=== PATIENT | female | born 1965 | race Caucasian/White ===

== ENCOUNTER 2021-03-25 09:30 | Outpatient (AMB) | payer MEDICARE, SELFPAY ==
--- NOTE | 2021-05-01 13:58 | CWC.SOCIALAS ---
[facility] Social Work Assessment Intake Visit Date: 05/01/21 Conference Time: 09:30 Conference Visit Location: [facility] Office via Phone Call Visit Participants: Antonietta Moser, patient [address] Referral Source: Follow-Up Visit Repack Room Worker: Elana List Name, Facility and location of PCP: Dr. Sandoval Preliminary Information History provided by: Patient Diagnosis: Colon Cancer with Lung Mets Prognosis: Fair Goal of Care: Life Prolonging (Walk her dog at least 1x per day. ) Social Environment Employment status: Disabled Financial Status: Adequate (Meeting basic needs) Patient housing status: House Patient lives with: Alone Living situation comments: Patient reported her son was staying with her at this time as he is trying to fix his vehicle. Support system: Good ADL's Getting dressed: Yes Personal Hygiene: Yes Feeding: Yes Ambulate: Yes Continence management: Yes Prepare meals: Yes Transportation: Yes (Mindful of her abilities when driving. When driving, the day before she plans out time she will leave to ensure she feels well to drive. ) engineer process: Yes (Has to take it slow due to fatigue. She has a camp housekeeper who goes once a month along with a profiling machine setup operator. ) Manage medications: Yes Manage finances: Yes Ambulation ability: Ambulates independently (Patient reported she feels exhausted when she is awake. Discussed recommendations to manage fatigue: take breaks, prioritize, break task down, which she reported she does. ) Cognitive/Emotional Status Mental status: Alert and Oriented Judgement: Good Emotional status: Normal Coping status: Coping w/some difficulty Learning needs: Motivational Additional comments: Antonietta Moser is a 55-year-old female who presented to her PC follow-up via phone call. Patient was pleasant and cooperative. Patient was sitting outside during the call since her camp housekeeper was in the home at the time of the call. Mood and affect was within normal limits and thought process was congruent with thought content. Patient able to communicate effectively. No signs of delusion or hallucinations during the call. Patient declined SI/HI. Patient has depression. Patient reporting she feels she kobe. She reported her only issue is the fatigue. Patient was recommended counseling services, but she reported she is not ready yet. Patient is coping by focusing on the positive aspects of her life. She has a yoga book, which she was recommended to engage in reading since she reported she enjoys reading. Recommended engaging in practicing Imagery and discussed benefits. Patient reported Imagery was an exercise she learned with her hypnotherapist, which she would try to incorporate. Also recommended patient practicing Gratitude Exercises (1-3 good experiences) to help combat depression and educated on the benefits. Patient plans to begin going to her friends gathering next week where they play [employer]unco. Encouraged patient to continue engaging is social activities and utilizing coping skills. Advanced Care planning Advacned care plan discussed: No Social Service Decision Making Status: Makes Own Decisions (Patient has an ADVDIR and POLST and is scanned in the chart. Attempt Resuscitation, Full Treatment-Trial Period of Full Treatment (Patient does not want to remain on a vent or other life support measures w/o possibility of recovery, trial period of artificial nutrition. ) Primary Decision Maker: Autumn Wilson, daughter Anticipated needs Hand Shoes Sewer Patient Concerns: Adjustment to Illness (Recommended counseling services. Engagement in social activities and use of coping skills. ) Hand Shoes Sewer Discharge needs: No Further Intervention Additional Note Additional Visit Nurse notes: Patient had recent last that indicated possible issue with the thyroid which she reported would make sense to her symptoms present such as fatigue, depression, and hair loss. She will be seeing her PCP in March to discuss the lab values. Sleep: Sleeping well. She reported she has a prescription for Atarax her PCP gave her and that has helped her sleep better. Appetite: Good.
== END 2021-03-25 10:40 | disposition home or self-care (01) ==
LOC: HODCWC 10:46
PROVIDERS: PCP Radiology Therapeutic Radiology; Referring Provider Radiology Therapeutic Radiology; Visit Provider Radiology Therapeutic Radiology

== ENCOUNTER → 2024-01-05 | Outpatient (CLI) | payer MEDICARE, SELFPAY ==
[2024-01-05 16:35] LABS: Protein Total, Urine 16 mg/dL (1-14)
[2024-01-05 16:41] LABS: Protein Total, 24 hr Urine 320 mg/24hr (<149); Protein Total, Urine Volume 2000 mL/24hr (600-1800)
== END | disposition home or self-care (01) ==
LOC: SLDO 13:59
PROVIDERS: Referring Provider Internal Medicine Hematology & Oncology; Visit Provider Internal Medicine Hematology & Oncology
DX: C20 Malignant neoplasm of rectum (principal); C78.00 Secondary malignant neoplasm of unspecified lung
CPT/HCPCS: 84156

== ENCOUNTER 2024-01-07 13:30 | Outpatient (RCR) | payer MEDICARE, SELFPAY ==
[2024-01-06 16:28] LABS: Collection Type, Urine Voided; Squamous Epithelial Cell,Urine 0 /hpf (0-5)
[2024-01-06 16:30] LABS: Basophils % (Auto) 0 % (0-2.5); Eosinophils # (Auto) 0.2 Thou/mm3 (0.0-0.5); Eosinophils % (Auto) 2 % (0-10); Hematocrit 42.2 % (36.0-46.0); Hemoglobin 13.8 g/dL (12.0-16.0); Immature Granulocytes % (Auto) 0 % (0-0); Immature Granulocytes Auto 0.02 Thou/mm3 (0.00-0.00); Lymphocytes % (Auto) 14 % (10-50); Mean Corpuscular HGB Conc 32.7 g/dl (31.0-37.0); Mean Corpuscular Hemoglobin 32.1 pg (25.0-35.0); Mean Corpuscular Volume 98 fL (80-100); Monocytes # (Auto) 0.5 Thou/mm3 (0.0-0.8); Monocytes % (Auto) 6 % (0-12); Neutrophils # (Auto) 5.6 Thou/mm3 (1.8-7.7); Neutrophils % (Auto) 77 % (37-80); Nucleated Red Blood Cell % 0 /100 WBC (0); Platelet Count 259 Thou/mm3 (140-440); RDW Standard Deviation 54.4 fL (36.4-46.3); White Blood Count 7.3 Thou/mm3 (3.6-11.0)
[2024-01-06 16:32] LABS: Bilirubin,Urine Negative (Negative); Blood,Urine Negative (Negative); Clarity,Urine Clear (Clear/Hazy); Color,Urine Yellow (Lt Yel-Yel); Glucose, Urine Negative (Negative); Ketones,Urine Negative (Negative); Leukocyte Esterase,Urine Negative (Negative); Nitrite,Urine Negative (Negative); PH,Urine 6.5 (5.0-7.0); Protein,Urine 1+ (Neg - Trace); RBC,Urine 1 /hpf (0-3); Specific Gravity,Urine 1.016 (1.001-1.035); Urobilinogen,Urine Negative mg/dL (0.0-1.0); WBC,Urine 1 /hpf (0-5)
[2024-01-06 17:00] LABS: Alanine Aminotransferase 17 U/L (10-49); Albumin, Serum 4.8 gm/dL (3.4-4.8); Albumin/Globulin Ratio 2.1 (1.2-2.2); Alkaline Phosphatase 95 U/L (46-116); Anion Gap 9 (7-16); Aspartate Amino Transferase 28 U/L (0-34); BUN/Creatinine Ratio 14 Ratio (12-20); Bilirubin,Total 0.7 mg/dL (0.3-1.2); Blood Urea Nitrogen 14 mg/dL (9-23); Calcium 10.2 mg/dL (8.3-10.6); Calcium (Corrected) 10.2 mg/dL (8.5-10.1); Carbon Dioxide 26.1 mMol/L (20.0-31.0); Chloride 104 mMol/L (98-107); Globulin 2.3 gm/dL (2.3-3.5); Glucose 118 mg/dL (74-106); Osmolality,Calculated 279 (275-295); Potassium 4.1 mMol/L (3.4-5.1); Sodium 139 mMol/L (136-145); Total Protein 7.1 gm/dL (5.7-8.2); eGFR > 60 See Note
[2024-01-06 17:04] LABS: Carcinoembryonic Antigen 15.6 ng/mL (0.0-5.0)
== END 2024-01-23 23:59 | disposition home or self-care (01) ==
LOC: SCTC 13:30
PROVIDERS: Internal Medicine Hematology & Oncology; PCP Internal Medicine; Referring Provider Internal Medicine; Visit Provider Radiology Therapeutic Radiology
DX: Z51.11 Encounter for antineoplastic chemotherapy (principal); C20 Malignant neoplasm of rectum; C78.01 Secondary malignant neoplasm of right lung; C77.0 Secondary and unspecified malignant neoplasm of lymph nodes of head, face and neck
CPT/HCPCS: 36591; 80053; 81001; 82378; 85025; 96413; A4216; J1642; Q5107

== ENCOUNTER → 2024-01-25 | Outpatient (CLI) | payer MEDICARE, SELFPAY ==
[2024-01-25 11:06] LABS: Collection Type, Urine Clean Catch
[2024-01-25 11:27] LABS: Basophils % (Auto) 1 % (0-2.5); Eosinophils # (Auto) 0.1 Thou/mm3 (0.0-0.5); Eosinophils % (Auto) 2 % (0-10); Hematocrit 41.8 % (36.0-46.0); Hemoglobin 13.3 g/dL (12.0-16.0); Immature Granulocytes % (Auto) 0 % (0-0); Immature Granulocytes Auto 0.01 Thou/mm3 (0.00-0.00); Lymphocytes # (Auto) 0.9 Thou/mm3 (1.0-4.8); Lymphocytes % (Auto) 15 % (10-50); Mean Corpuscular HGB Conc 31.8 g/dl (31.0-37.0); Mean Corpuscular Hemoglobin 31.6 pg (25.0-35.0); Mean Corpuscular Volume 99 fL (80-100); Monocytes # (Auto) 0.4 Thou/mm3 (0.0-0.8); Monocytes % (Auto) 6 % (0-12); Neutrophils # (Auto) 4.5 Thou/mm3 (1.8-7.7); Neutrophils % (Auto) 76 % (37-80); Nucleated Red Blood Cell % 0 /100 WBC (0); Platelet Count 244 Thou/mm3 (140-440); RDW Standard Deviation 53.3 fL (36.4-46.3); Red Blood Count 4.21 Miln/mm3 (4.00-5.20); White Blood Count 5.9 Thou/mm3 (3.6-11.0)
[2024-01-25 11:36] LABS: Alanine Aminotransferase 15 U/L (10-49); Albumin, Serum 4.5 gm/dL (3.4-4.8); Alkaline Phosphatase 78 U/L (46-116); Anion Gap 9 (7-16); Aspartate Amino Transferase 27 U/L (0-34); BUN/Creatinine Ratio 13 Ratio (12-20); Bilirubin,Total 0.4 mg/dL (0.3-1.2); Blood Urea Nitrogen 13 mg/dL (9-23); Calcium 10.3 mg/dL (8.3-10.6); Calcium (Corrected) 10.3 mg/dL (8.5-10.1); Carbon Dioxide 26.2 mMol/L (20.0-31.0); Chloride 110 mMol/L (98-107); Globulin 2.3 gm/dL (2.3-3.5); Glucose 113 mg/dL (74-106); Osmolality,Calculated 289 (275-295); Potassium 3.8 mMol/L (3.4-5.1); Sodium 145 mMol/L (136-145); Total Protein 6.8 gm/dL (5.7-8.2); eGFR > 60 See Note
[2024-01-25 11:38] LABS: Bacteria,Urine Rare; Bilirubin,Urine Negative (Negative); Blood,Urine Negative (Negative); Clarity,Urine Clear (Clear/Hazy); Color,Urine Yellow (Lt Yel-Yel); Culture Indicated,Urine Not Indicated; Glucose, Urine Negative (Negative); Granular Casts,Urine < 1 /hpf (0-1); Hyaline Casts,Urine < 1 /hpf (0-1); Ketones,Urine Negative (Negative); Leukocyte Esterase,Urine Negative (Negative); Nitrite,Urine Negative (Negative); Protein,Urine 1+ (Neg - Trace); RBC,Urine 2 /hpf (0-3); Squamous Epithelial Cell,Urine < 1 /hpf (0-5); Urobilinogen,Urine Negative mg/dL (0.0-1.0); WBC,Urine 5 /hpf (0-5)
[2024-01-25 11:44] LABS: Carcinoembryonic Antigen 15.9 ng/mL (0.0-5.0)
[2024-01-25 12:27] LABS: Protein Total, Urine 55 mg/dL (1-14)
[2024-01-25 12:37] LABS: Protein Total, 24 hr Urine 495 mg/24hr (<149); Protein Total, Urine Volume 900 mL/24hr (600-1800)
== END | disposition home or self-care (01) ==
LOC: SCTO 10:30
PROVIDERS: PCP Internal Medicine; Referring Provider Internal Medicine Hematology & Oncology; Visit Provider Internal Medicine Hematology & Oncology
DX: C20 Malignant neoplasm of rectum (principal); C78.00 Secondary malignant neoplasm of unspecified lung
CPT/HCPCS: 36415; 80053; 81001; 82378; 84156; 85025

== ENCOUNTER 2024-02-18 09:41 | Outpatient (RCR) | payer MEDICARE, SELFPAY ==
--- NOTE | 2024-02-07 17:19 | CTCFLWUP_ITS ---
Patient: ANTONIETTA MONTENEGRO : 1965 Page 2 of 2 FOLLOW UP NOTE DATE OF SERVICE: 01/25/2024 NAME: ANTONIETTA MONTENEGRO ACCOUNT: [id number] : 1965 AGE: 58 REASON FOR VISIT: Follow-up on colon cancer INTERVAL HISTORY: Patient is complaining of pain over her shoulder and neck She had a pain medication. Is not well-controlled. 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 K-laurence mutation not de tected. No loss of expression of MMR proteins. She was treated with neoadjuvant chemoradiation at [facility]. Following the surgery she was found to have T2N2 stage III disease. Postoperatively she was treated with adjuvant chemotherapy with FOLFOX. 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 06/08/2017: CT-guided biopsy of the lung mass showed metastatic carcinoma consistent with colorectal p rimary. Intact and and or expression. PDL 1 expression negative. Since last visit patient was seen at [facility] on the 10/07/2017. She had a CT scan of the chest abdom en pelvis with contrast done. CT scan showed a right upper lobe 14 x 11 mm and the right lower lobe 15 x 9 mm lesio ns. Both of these are smaller when compared to the previous scans. Patient is in the clinic today for follow-up. The recommendation from a [facility] physician is to continue current regimen of chemotherapy of full feeding and Avastin. Patient is clinically doing very well. Denies any cough chest pain abdominal pain or leg cramps. 11/09/2017: Patient is in the clinic today for follow-up. Since last visit I have discussed her case with Dr. Rusty Rangel of [facility]. She reviewed the CT scans with her cardiothoracic surgeon at [facility]. A ccording to her patient is not a surgical candidate. 07/14/2017?12/23/2017: Patient was treated with 12 cycles of FOLFIRI plus Avastin. FOLFIRI chemothera py was stopped due to significant nausea, vomiting as well as diarrhea. 02/01/2018: Patient was started on capecitabine and Avastin chemotherapy. 07/14/2018: CT scan of chest abdomen and pelvis at [facility]?status post low anterior resection tor sandy atment of a rectal malignancy. Stable pulmonary and pleural metastases. No evidence of metastatic d isease in the abdomen or pelvis 02/17/2019: Patient was started on Capecitabine and Avastin again. 03/02/2019: Patient is started on 5-FU and Avastin. Capecitabine discontinued due to side effects 07/05/2019: Patient received last cycle of 5-FU and Avastin. 08/03/2019: CT scan of the chest abdomen and pelvis with contrast at [facility]? 10/04/2019?10/11/2019: Patient received 5400 cGy radiation to the right lung CTV 1 818 2019?02/2019: Patient received 5000 cGy radiation to right lung CTV 2. 10/27/2019?11/10/2019: Patient received 4000 cGy to the right lung CTV 3. 12/19/2019: CT scan of the chest with IV contrast? 01/15/2020: Patient had right-sided therapeutic thoracentesis. 1900 cc of dark red fluid was removed . Cytology showed metastatic adenocarcinoma consistent with colorectal primary. 01/26/2020: CT scan of the chest abdomen and pelvis with IV contrast? 01/28/2020: PET CT scan? 02/28/2020: Patient received first cycle of dose reduced FOLFIRI with Avastin. 05/23/2020: CT scan of the chest abdomen and pelvis with IV contrast? 05/25/2020: PET CT scan? 06/19/2020: Patient received last dose of FOLFIRI. 07/03/2020: Patient is started on capecitabine 1500 mg p.o. twice daily on a 2 weeks on and 1 week off regimen along with Avastin. 09/14/2020: CT scan of the chest abdomen and pelvis with IV contrast? 07/24/2020: CEA 3.4. 09/04/2020: CEA 5.3. 11/23/2020: CEA 2.3. 03/11/2021: CEA 4.2. 04/01/2021: CEA 5.3. 05/13/2021: CEA 8.9. 06/03/2021: CEA 9.9. 08/22/2021: CEA 8.8. 08/09/2021: CT scan of the chest abdomen and pelvis with IV contrast? 11/18/2021: CEA 11.0. 01/02/2022: CT scan of the chest abdomen and pelvis with IV contrast? 04/15/2022: CEA 13.3. 10/08/2022: CEA 12.7. 04/06/2023: X-rays of the rib right side unilateral? 04/08/2023: Ultrasound of the right upper back 05/08/2023: PET/CT scan?the PET CT scan was compared to a PET CT scan done on December 09, [address] scan of the chest abdomen and pelvis done on November 03, 2022. 06/23/2023: Ms. Montenegro had EBUS guided fine-needle aspiration of the mediastinal lymph node? DIAGNOSIS: HER2/ilda negative, K-laurence wild-type, MMR normal expression, PDL 1 negative, metastatic colon cancer wi th pulmonary metastases Currently on capecitabine and bevacizumab Malignant right-sided pleural effusion (01/15/2020) DATE OF DIAGNOSIS: STAGE/TNM: TREATMENT HISTORY: Care?Plan Start?Date Cycle Day Intent FOLFIRI?+?Bevacizumab?10?mg/kg 07/14/2017 1 28 Definitive Rx?Capecitabine?+?Bevacizumab?7.5mg/kg 02/01/2018 1 21 Palliative 5FU?infu?avastin 02/17/2019 1 14 Palliative FOLFIRI?+?Bevacizumab?5mg/kg 02/28/2020 1 14 Palliative Bevacizumab?7.5?mg/kg?-?Met 07/03/2020 1 21 Palliative OTHER MEDICAL HISTORY/CONDITIONS: FAMILY HISTORY: ?Clone Family Hx? 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 albuterol-budesonide - 90-80 mcg/actuation 1 Puff(s) one puff twice a day 2. Align - As directed 3. amlodipine - 10 mg 1 tab Twice a Day 4. beclomethasone dipropionate - 40 mcg/actuation 1 Puff(s) 1 puff twice a day 5. capecitabine - 500 mg 2 tab Twice a Day 6. capecitabine - 150 mg 1 tab Twice a Day 7. CholestOff Complete - 300-100 mg 1 Capsule Daily 8. Estroven - 155 mg Capsule Daily 9. famotidine - 40 mg 1 tab Daily 10. Fish Oil - 300 mg 1 Capsule Twice a Day 11. flaxseed oil - 1,000 mg 1 Capsule Three times a day 12. HYDROcodone-acetaminophen - 10-325 mg 1 tab As directed 13. hyoscyamine sulfate - 0.125 mg 1 - 2 tab q4 14. Imodium A-D - 2 mg 1 Capsule As directed 15. lecithin - 400 mg 1 Capsule Daily 16. levothyroxine - 25 mcg 1 tab Daily 17. lisinopril - 20 mg 1 tab Twice a Day 18. Lomotil - 2.5-0.025 mg 2 tab four times a day 19. meloxicam - Daily 20. Metamucil - As directed 21. methylphenidate HCl - 5 mg 1 tab twice a day 22. metoprolol tartrate - 100 mg 1 tab Daily 23. Ritalin - 5 mg 1 tab 1 tab po twice a day 24. Trelegy Ellipta - 100-62.5-25 mcg 1 Puff(s) Daily 25. Trelegy Ellipta - 100-62.5-25 mcg 1 As directed 26. Tylenol Extra Strength - 500 mg 2 Capsule As needed 27. Ventolin HFA - 90 mcg/actuation 1 - 2 Puff(s) q4 28. Vitamin D3 - 5,000 unit 5,000 Units Daily 29. Zoloft - 50 mg 1 tab As directed?[facility]ra Meds? Medications Last Reconciled by Cailin Jack MA on 01/25/2024 ALLERGIES: No Known Drug Allergies REVIEW OF SYSTEMS: A complete 14-point review of systems was performed and is negative except as noted in interval histo ry. PHYSICAL EXAMINATION:?CloneBlock PE? VITAL SIGNS: Temperature?98.8, B/P?151/90, Oxygen?Saturation?97% Weight?157?lbs (Change?since? 4:?0.8?lbs) PAIN: none - No pain ECOG Performance Status: 2 - Symptomatic; ambulatory; capable of self-care; >50% of waking hrs. not i n bed Alert oriented x 4 Palms and soles are slightly red red. Minimal desquamation of the skin present. She also has mild redness of the right big toe. Neck is supple. No adenopathy palpable in the neck, axillary and inguinal region. Chest clear to auscultation. No wheezes or rales audible. CVS rhythm regular. Right upper quadrant of the abdomen is tender on deep palpation. No masses palpable. LABORATORY DATA: I have personally reviewed and interpreted each of the patient?s relevant lab tests, abnormal finding s are below: Date 01/25/24 ??WHITE?BLOOD?COUNT?(Thou/mm3) 5.9 ??RED?BLOOD?COUNT?(Miln/mm3) 4.21 ??HEMOGLOBIN?(gm/dl) 13.3 ??HEMATOCRIT?(%) 41.8 ??PLATELET?COUNT?(Thou/mm3) 244 ??NEUTROPHILS?%,?AUTO?(%) 76 ??LYMPH?%,?AUTO?(%) 15 ??NEUTROPHILS,?AUTO?(Thou/mm3) 4.5 Summary of Past Treatments: Neoadjuvant chemoRT with concurrent 5-F U 05/2009-09/2009 ' ?\R 11/24 10 va nt FOLFOX x6 cycles clb neuropaliw? lRl x 6 cycles (Completed 06/2010)- N93 03: :0 I?OHC?IJ Up I - a} baSCd iUIIg ?Wt-lies Identi?ed 05/2017 FOLFIRI + Avastin x12 cycles (4559609-41/2018)- Maintenance Xeloda 2 tabs BID + Avastin - stable. Switch xeloda ?> 5oFU + Avastin given HFS/diarrhea. SRS to lung lesions Resumed FOLFIRI + Avastin for recurrent disease- disease shrinkage Xeloda and Kaitlynn stin Recommendations: - Reasonable to continue Xeloda + Avastin in light of relative stability. Howev er, escalating back to FOLFIRI + Avastin or irintoecan + cetuximab also options. - Consider palliative XRT to posterior rib lesions - RTC after interval imaging. IMPRESSION/PLAN: Metastatic colon cancer Patient has been treated with chemoradiation. Patient received following treatment so far FOLFOX> IR I> FOLFIRI and Avastin> Avastin> Xeloda and Avastin Patient is currently on Xeloda and Avastin Patient have wild-type BRAF K-laurence Options for treatment will be FOLFIRI plus Avastin or irinotecan plus cetuximab I will continue Avastin and Xeloda and get PET CT scan Once patient's PET CT scan results are back and will send to Dr. Britton if need of radiation will book a ppointment with him once PET is complete PET CT scan CBC CMP CEA Referral to radiation oncology RTC in 4 weeks RETURN TO CLINIC: BILLING AND COMPLIANCE: I reviewed external records from providers outside my specialty as summarized above. I spent a total of 50 minutes on this patient?s care on the day of their visit excluding time spent related to any bi lled procedures. This time includes time spent with the patient as well as time spent documenting in the medical record, reviewing patients records and tests, obtaining history, placing orders, communi cating with other healthcare professionals, counseling the patient, family or caregiver, and/or care coordination for the diagnoses above. Electronically Signed by: Kapil Mandujano MD T: 5:17 PM CC: LELAND Jeffrey PCP: Gilbert Doyle Referring: Gilbert Doyle This document was completed utilizing speech recognition software. Grammatical errors, random word in sertions, pronoun errors, and incomplete sentences are an occasional consequence of this system due t o software limitations, ambient noise, and hardware issues. Any formal questions or concerns about th e content, text or information contained within the body of this dictation should be directly address ed to the provider for clarification.
[2024-02-18 10:31] LABS: Basophils % (Auto) 1 % (0-2.5); Eosinophils # (Auto) 0.2 Thou/mm3 (0.0-0.5); Eosinophils % (Auto) 4 % (0-10); Hemoglobin 12.5 g/dL (12.0-16.0); Immature Granulocytes % (Auto) 0 % (0-0); Immature Granulocytes Auto 0.01 Thou/mm3 (0.00-0.00); Lymphocytes # (Auto) 0.8 Thou/mm3 (1.0-4.8); Lymphocytes % (Auto) 18 % (10-50); Mean Corpuscular HGB Conc 32.9 g/dl (31.0-37.0); Mean Corpuscular Hemoglobin 32.3 pg (25.0-35.0); Mean Corpuscular Volume 98 fL (80-100); Monocytes # (Auto) 0.4 Thou/mm3 (0.0-0.8); Monocytes % (Auto) 9 % (0-12); Neutrophils # (Auto) 2.9 Thou/mm3 (1.8-7.7); Neutrophils % (Auto) 68 % (37-80); Nucleated Red Blood Cell % 0 /100 WBC (0); Platelet Count 170 Thou/mm3 (140-440); RDW Standard Deviation 57.6 fL (36.4-46.3); Red Blood Count 3.87 Miln/mm3 (4.00-5.20); White Blood Count 4.2 Thou/mm3 (3.6-11.0)
[2024-02-18 10:36] LABS: Collection Type, Urine Voided
[2024-02-18 10:42] LABS: Bilirubin,Urine Negative (Negative); Blood,Urine Trace (Negative); Clarity,Urine Clear (Clear/Hazy); Color,Urine Yellow (Lt Yel-Yel); Glucose, Urine Negative (Negative); Ketones,Urine Negative (Negative); Leukocyte Esterase,Urine Negative (Negative); Nitrite,Urine Negative (Negative); Protein,Urine 1+ (Neg - Trace); RBC,Urine 2 /hpf (0-3); Specific Gravity,Urine 1.023 (1.001-1.035); Squamous Epithelial Cell,Urine < 1 /hpf (0-5); Urobilinogen,Urine Negative mg/dL (0.0-1.0); WBC,Urine 1 /hpf (0-5)
[2024-02-18 10:49] LABS: Alanine Aminotransferase 19 U/L (10-49); Albumin, Serum 4.3 gm/dL (3.4-4.8); Albumin/Globulin Ratio 2.3 (1.2-2.2); Alkaline Phosphatase 72 U/L (46-116); Anion Gap 8 (7-16); Aspartate Amino Transferase 19 U/L (0-34); BUN/Creatinine Ratio 18 Ratio (12-20); Bilirubin,Total 0.4 mg/dL (0.3-1.2); Blood Urea Nitrogen 16 mg/dL (9-23); Calcium 9.5 mg/dL (8.3-10.6); Calcium (Corrected) 9.5 mg/dL (8.5-10.1); Carbon Dioxide 24.8 mMol/L (20.0-31.0); Chloride 107 mMol/L (98-107); Creatinine (Component) 0.9 mg/dL (0.6-1.3); Globulin 1.9 gm/dL (2.3-3.5); Glucose 135 mg/dL (74-106); Osmolality,Calculated 282 (275-295); Potassium 3.6 mMol/L (3.4-5.1); Sodium 140 mMol/L (136-145); Total Protein 6.2 gm/dL (5.7-8.2); eGFR > 60 See Note
[2024-02-18 11:07] LABS: Carcinoembryonic Antigen 15.3 ng/mL (0.0-5.0)
== END 2024-02-23 23:59 | disposition home or self-care (01) ==
LOC: SCTC 09:41
PROVIDERS: PCP Internal Medicine; Referring Provider Internal Medicine; Visit Provider Internal Medicine Hematology & Oncology
DX: Z51.11 Encounter for antineoplastic chemotherapy (principal); C20 Malignant neoplasm of rectum; C78.01 Secondary malignant neoplasm of right lung; C77.0 Secondary and unspecified malignant neoplasm of lymph nodes of head, face and neck; G89.3 Neoplasm related pain (acute) (chronic)
CPT/HCPCS: 80053; 81001; 82378; 85025; 96413; 99212; A4216; J1642; J7030; Q5107; G0463

== ENCOUNTER 2024-03-01 13:40 | Outpatient (RCR) | payer MEDICARE, SELFPAY ==
--- NOTE | 2024-03-01 14:56 | CTCFLWUP_ITS ---
[facility] [address] [place], [place] [address] FOLLOW-UP NOTE Date: 03/01/2024 MR#: [id number] Name: QUETA MONTENEGRO : 1965 Dx: C20 Malignant neoplasm of rectum Identification. Underwent neoadjuvant chemoradiation followed by surgery at [facility] T2 N2 stage III. 2009 Patient with colorectal CA with lung mets. Since 2018 Adjuvant FOLFOX chemo with lingering neuropathic symptoms. For biopsy-proven lung mets underwent SBRT to 3 sites completed 11/10/2019 with good resolution of les ions. Currently on capecitabine and bevacizumab. Most recent PET scan performed 02/12/2024 revealed hypermetabolic some at right posterior second ribs with interval lytic destructive change. Also right supra clav and right hilar activity noted. Patient's pain is moderate and being managed now by her primary care physician, Dr. Gilbert Amezquita. As I see today patient appears comfortable but tenderness in the right rib cage region noted. Lungs are clear. Assessment #1 Colorectal cancer since 2009 stage III at the time of surgery #2. colon cancer to lung since 2018, good response to SBRT to lung lesions currently on Avastin and Xeloda under Dr. Mandujano's direction.. #3. PET scan shows apparent progression with more pain symptoms in the right Rib cage area. #4 Thus far pain is reasonably well-controlled with pain medications and patient would like to hold off on any palliative radiation therapy at this point. Electronically signed by: Keny Britton M.D. 03/01/2024 2:54 PM
== END 2024-03-25 23:59 | disposition home or self-care (01) ==
LOC: SCTC 13:40
PROVIDERS: PCP Internal Medicine; Referring Provider Internal Medicine; Visit Provider Radiology Therapeutic Radiology
DX: C20 Malignant neoplasm of rectum (principal); C78.01 Secondary malignant neoplasm of right lung; G89.3 Neoplasm related pain (acute) (chronic); Z92.3 Personal history of irradiation; Z92.21 Personal history of antineoplastic chemotherapy
CPT/HCPCS: 99213; G0463

== ENCOUNTER 2024-04-20 13:30 | Outpatient (RCR) | payer MEDICARE, SELFPAY ==
[2024-03-28 16:54] LABS: Basophils # (Auto) 0.1 Thou/mm3 (0.0-0.2); Basophils % (Auto) 1 % (0-2.5); Eosinophils # (Auto) 0.3 Thou/mm3 (0.0-0.5); Eosinophils % (Auto) 2 % (0-10); Hematocrit 37.2 % (36.0-46.0); Hemoglobin 12.2 g/dL (12.0-16.0); Immature Granulocytes % (Auto) 1 % (0-0); Immature Granulocytes Auto 0.06 Thou/mm3 (0.00-0.00); Lymphocytes # (Auto) 1.3 Thou/mm3 (1.0-4.8); Lymphocytes % (Auto) 12 % (10-50); Mean Corpuscular HGB Conc 32.8 g/dl (31.0-37.0); Mean Corpuscular Hemoglobin 31.2 pg (25.0-35.0); Mean Corpuscular Volume 95 fL (80-100); Monocytes # (Auto) 0.9 Thou/mm3 (0.0-0.8); Monocytes % (Auto) 8 % (0-12); Neutrophils # (Auto) 8.3 Thou/mm3 (1.8-7.7); Neutrophils % (Auto) 76 % (37-80); Nucleated Red Blood Cell % 0 /100 WBC (0); Platelet Count 350 Thou/mm3 (140-440); RDW Standard Deviation 60.9 fL (36.4-46.3); Red Blood Count 3.91 Miln/mm3 (4.00-5.20); White Blood Count 10.9 Thou/mm3 (3.6-11.0)
[2024-03-28 17:29] LABS: Alanine Aminotransferase 28 U/L (10-49); Albumin, Serum 4.3 gm/dL (3.4-4.8); Albumin/Globulin Ratio 1.4 (1.2-2.2); Alkaline Phosphatase 135 U/L (46-116); Anion Gap 10 (7-16); Aspartate Amino Transferase 39 U/L (0-34); BUN/Creatinine Ratio 23 Ratio (12-20); Bilirubin,Total 0.6 mg/dL (0.3-1.2); Blood Urea Nitrogen 25 mg/dL (9-23); Chloride 99 mMol/L (98-107); Creatinine (Component) 1.1 mg/dL (0.6-1.3); Globulin 3.1 gm/dL (2.3-3.5); Glucose 109 mg/dL (74-106); Osmolality,Calculated 273 (275-295); Sodium 134 mMol/L (136-145); Total Protein 7.4 gm/dL (5.7-8.2); eGFR 58 See Note
--- NOTE | 2024-03-28 22:46 | CTCFLWUP_ITS ---
Patient: QUETA MONTENEGRO : 1965 Page 8 of 10 FOLLOW UP NOTE DATE OF SERVICE: 03/28/2024 NAME: QUETA MONTENEGRO ACCOUNT: [id number] : 1965 AGE: 58 INTERVAL HISTORY: Patient is complaining of pain over her ribs. Patient was recently admitted in the hospital with a pneumonia. Patient's imaging in the hospital showed progression of disease. Patient's last chemotherapy was in January with bevacizumab and capecitabine. Patient treated with antibiotics. No fever but still have cough. ONCOLOGY HISTORY: DIAGNOSIS: Malignant neoplasm of rectum [ICD10] C20; Secondary malignant neoplasm of unspecified lung [ICD10] C78.00 DATE OF DIAGNOSIS: 06/08/2017 Initially diagnosed with rectal cancer in 2009 as stage III and in 2018 as stage IV STAGE/TNM: Stage IV TREATMENT HISTORY: Care?Plan Start?Date Cycle Day Intent FOLFIRI?+?Bevacizumab?10?mg/kg 07/14/2017 1 28 Definitive Rx?Capecitabine?+?Bevacizumab?7.5mg/kg 02/01/2018 1 21 Palliative 5FU?infu?avastin 02/17/2019 1 14 Palliative FOLFIRI?+?Bevacizumab?5mg/kg 02/28/2020 1 14 Palliative Bevacizumab?7.5?mg/kg?-?Met 07/03/2020 1 21 Palliative HISTORY OF PRESENT ILLNESS: 08/10/2009: Rectal mass biopsy showed moderately differentiated adenocarcinoma. K-laurence mutation not detected. No loss of expression of MMR proteins. She was treated with neoadjuvant chemoradiation at [place]. Following the surgery she was found to have T2N2 stage III disease. Postoperatively she was treated with adjuvant chemotherapy with FOLFOX. 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 06/08/2017: CT-guided biopsy of the lung mass showed metastatic carcinoma consistent with colorectal primary. Intact and and or expression. PDL 1 expression negative. Since last visit patient was seen at [facility] on the 10/07/2017. She had a CT scan of the chest abdomen pelvis with contrast done. CT scan showed a right upper lobe 14 x 11 mm and the right lower lobe 15 x 9 mm lesions. Both of these are smaller when compared to the previous scans. Patient is in the clinic today for follow-up. The recommendation from a [facility] physician is to continue current regimen of chemotherapy of full feeding and Avastin. Patient is clinically doing very well. Denies any cough chest pain abdominal pain or leg cramps. 11/09/2017: Patient is in the clinic today for follow-up. Since last visit I have discussed her case with Dr. Rusty Rangel of [facility]. She reviewed the CT scans with her cardiothoracic surgeon at [facility]. According to her patient is not a surgical candidate. 07/14/2017?12/23/2017: Patient was treated with 12 cycles of FOLFIRI plus Avastin. FOLFIRI chemotherapy was stopped due to significant nausea, vomiting as well as diarrhea. 02/01/2018: Patient was started on capecitabine and Avastin chemotherapy. 07/14/2018: CT scan of chest abdomen and pelvis at [facility]?status post low anterior resection tor treatment of a rectal malignancy. Stable pulmonary and pleural metastases. No evidence of metastatic disease in the abdomen or pelvis 02/17/2019: Patient was started on Capecitabine and Avastin again. 03/02/2019: Patient is started on 5-FU and Avastin. Capecitabine discontinued due to side effects 07/05/2019: Patient received last cycle of 5-FU and Avastin. 08/03/2019: CT scan of the chest abdomen and pelvis with contrast at [facility]? 10/04/2019?10/11/2019: Patient received 5400 cGy radiation to the right lung CTV 1 818 2019?02/2019: Patient received 5000 cGy radiation to right lung CTV 2. 10/27/2019?11/10/2019: Patient received 4000 cGy to the right lung CTV 3. 12/19/2019: CT scan of the chest with IV contrast? 01/15/2020: Patient had right-sided therapeutic thoracentesis. 1900 cc of dark red fluid was removed. Cytology showed metastatic adenocarcinoma consistent with colorectal primary. 01/26/2020: CT scan of the chest abdomen and pelvis with IV contrast? 01/28/2020: PET CT scan? 02/28/2020: Patient received first cycle of dose reduced FOLFIRI with Avastin. 05/23/2020: CT scan of the chest abdomen and pelvis with IV contrast? 05/25/2020: PET CT scan? 06/19/2020: Patient received last dose of FOLFIRI. 07/03/2020: Patient is started on capecitabine 1500 mg p.o. twice daily on a 2 weeks on and 1 week off regimen along with Avastin. 09/14/2020: CT scan of the chest abdomen and pelvis with IV contrast? 07/24/2020: CEA 3.4. 09/04/2020: CEA 5.3. 11/23/2020: CEA 2.3. 03/11/2021: CEA 4.2. 04/01/2021: CEA 5.3. 05/13/2021: CEA 8.9. 06/03/2021: CEA 9.9. 08/22/2021: CEA 8.8. 08/09/2021: CT scan of the chest abdomen and pelvis with IV contrast? 11/18/2021: CEA 11.0. 01/02/2022: CT scan of the chest abdomen and pelvis with IV contrast? 04/15/2022: CEA 13.3. 10/08/2022: CEA 12.7. 04/06/2023: X-rays of the rib right side unilateral? 04/08/2023: Ultrasound of the right upper back 05/08/2023: PET/CT scan?the PET CT scan was compared to a PET CT scan done on December 09, [address] scan of the chest abdomen and pelvis done on November 03, 2022. 06/23/2023: Ms. Montenegro had EBUS guided fine-needle aspiration of the mediastinal lymph node? 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 Align - As directed 2. amlodipine - 10 mg 1 tab Twice a Day 3. beclomethasone dipropionate - 40 mcg/actuation 1 Puff(s) 1 puff twice a day 4. capecitabine - 500 mg 2 tab Twice a Day 5. CholestOff Complete - 300-100 mg 1 Capsule Daily 6. clonazePAM - 0.5 mg 1 tab Every day before sleep 7. Estroven - 155 mg Capsule Daily 8. famotidine - 40 mg 1 tab Daily 9. Fish Oil - 300 mg 1 Capsule Twice a Day 10. flaxseed oil - 1,000 mg 1 Capsule Three times a day 11. HYDROcodone-acetaminophen - 10-325 mg 1 tab As directed 12. hyoscyamine sulfate - 0.125 mg 1 - 2 tab q4 13. Imodium A-D - 2 mg 1 Capsule As directed 14. levothyroxine - 25 mcg 1 tab Daily 15. Lomotil - 2.5-0.025 mg 2 tab four times a day 16. meloxicam - Daily 17. Metamucil - As directed 18. methylphenidate HCl - 5 mg 1 tab twice a day 19. metoprolol tartrate - 100 mg 1 tab Daily 20. ondansetron - 8 mg 1 tab As directed 21. Ritalin - 5 mg 1 tab 1 tab po twice a day 22. Trelegy Ellipta - 100-62.5-25 mcg 1 As directed 23. Tylenol Extra Strength - 500 mg 2 Capsule As needed 24. Ventolin HFA - 90 mcg/actuation 1 - 2 Puff(s) q4 25. Vitamin D3 - 5,000 unit 5,000 Units Daily 26. Zoloft - 50 mg 1 tab As directed Medications Last Reconciled by Yi Garcia MA on 03/28/2024 ALLERGIES: No Known Drug Allergies REVIEW OF SYSTEMS: A complete 14-point review of systems was performed and is negative except as noted in interval history. PHYSICAL EXAMINATION: VITAL SIGNS: Temperature?99.3, B/P?109/72, Oxygen?Saturation?95% Weight?150?lbs Alert oriented x 4 Palms and soles are slightly red red. Minimal desquamation of the skin present. She also has mild redness of the right big toe. Neck is supple. No adenopathy palpable in the neck, axillary and inguinal region. Chest clear to auscultation. No wheezes or rales audible. CVS rhythm regular. Right upper quadrant of the abdomen is tender on deep palpation. No masses palpable. LABORATORY DATA: I have personally reviewed and interpreted each of the patient?s relevant lab tests, abnormal findings are below: Date 03/28/24 ??GLUCOSE,RANDOM?(mg/dL) 109?H ??BLOOD?UREA?NITROGEN?(mg/dL) 25?H ??CREATININE?(mg/dL) 1.10 ??SODIUM?(mmol/L) 134?L ??POTASSIUM?(mmol/L) 5.0 ??CHLORIDE?(mmol/L) 99 ??CrCl?(CandG)?(ml/min) 58.42 ??AST/SGOT?(Unit/L) 39?H ??ALT/SGPT?(Unit/L) 28 ??ALKALINE?PHOSPHATASE?(Unit/L) 135?H ??BILIRUBIN,?TOTAL?(mg/dL) 0.6 ??PROTEIN?TOTAL?(gm/dl) 7.4 ??ALBUMIN,?SERUM?(gm/dl) 4.3 ??GLOBULIN?(gm/dl) 3.1 ??ALBUMIN/GLOBULIN?RATIO 1.4 ??CALCIUM,?SERUM?(mg/dL) 10.0 ??CALCIUM?SERUM?(CORRECTED)?(mg/dL) 10.0 ASSESSMENT/PLAN: Metastatic colon cancer Patient has been treated with chemoradiation. Patient received following treatment so far FOLFOX> IRI> FOLFIRI and Avastin> Avastin> Xeloda and Avastin Patient is currently on Xeloda and Avastin Patient have wild-type BRAF K-laurence PET CT scan as well as CT scans reviewed and have progression of disease Will refer to radiation for radiation to her lung upper lobe as well as ribs Will change chemotherapy to Lonsurf CBC CMP CEA Lonsurf chemotherapy, patient can continue bevacizumab and capecitabine for 1 more cycle while we get [facility] approved Biopsy of the growing rib lesion to see if patient is a candidate for targetable therapies Patient want to get a biopsy at [facility], if biopsy not obtainable then will proceed with radiation to the ribs for symptomatic relief as well as pain control. Patient already received radiation to the upper lobe of the lung which is likely causing cough secondary to necrotizing mass. I reviewed PET CT scan and FDG avidity is low and this mass so likely necrotic Will start Lonsurf DEON RETURN TO CLINIC: 4 weeks BILLING AND COMPLIANCE: I reviewed external records from providers outside my specialty as summarized above. I spent a total of 50 minutes on this patient?s care on the day of their visit excluding time spent related to any billed procedures. This time includes time spent with the patient as well as time spent documenting in the medical record, reviewing patients records and tests, obtaining history, placing orders, communicating with other healthcare professionals, counseling the patient, family or caregiver, and/or care coordination for the diagnoses above. Electronically Signed by: Kapil Mandujano MD T: 10:44 PM CC: Wojciech? PCP: Gilbert Doyle Referring: Gilbert Doyle This document was completed utilizing speech recognition software. Grammatical errors, random word insertions, pronoun errors, and incomplete sentences are an occasional consequence of this system due to software limitations, ambient noise, and hardware issues. Any formal questions or concerns about the content, text or information contained within the body of this dictation should be directly addressed to the provider for clarification.
[2024-04-06 15:46] LABS: Collection Type, Urine Voided
[2024-04-06 15:50] LABS: Basophils # (Auto) 0.1 Thou/mm3 (0.0-0.2); Basophils % (Auto) 1 % (0-2.5); Eosinophils # (Auto) 0.1 Thou/mm3 (0.0-0.5); Eosinophils % (Auto) 2 % (0-10); Hematocrit 38.1 % (36.0-46.0); Immature Granulocytes % (Auto) 0 % (0-0); Immature Granulocytes Auto 0.02 Thou/mm3 (0.00-0.00); Lymphocytes # (Auto) 1.3 Thou/mm3 (1.0-4.8); Lymphocytes % (Auto) 19 % (10-50); Mean Corpuscular HGB Conc 31.5 g/dl (31.0-37.0); Mean Corpuscular Hemoglobin 30.6 pg (25.0-35.0); Mean Corpuscular Volume 97 fL (80-100); Monocytes # (Auto) 0.5 Thou/mm3 (0.0-0.8); Monocytes % (Auto) 8 % (0-12); Neutrophils # (Auto) 4.6 Thou/mm3 (1.8-7.7); Neutrophils % (Auto) 70 % (37-80); Nucleated Red Blood Cell % 0 /100 WBC (0); Platelet Count 341 Thou/mm3 (140-440); RDW Standard Deviation 63.7 fL (36.4-46.3); Red Blood Count 3.92 Miln/mm3 (4.00-5.20); White Blood Count 6.5 Thou/mm3 (3.6-11.0)
[2024-04-06 16:09] LABS: Bilirubin,Urine Negative (Negative); Blood,Urine Negative (Negative); Clarity,Urine Clear (Clear/Hazy); Color,Urine Lt-Yellow (Lt Yel-Yel); Glucose, Urine Negative (Negative); Hyaline Casts,Urine < 1 /hpf (0-1); Ketones,Urine Negative (Negative); Leukocyte Esterase,Urine Negative (Negative); Nitrite,Urine Negative (Negative); PH,Urine 5.5 (5.0-7.0); Protein,Urine Negative (Neg - Trace); RBC,Urine 1 /hpf (0-3); Specific Gravity,Urine 1.009 (1.001-1.035); Squamous Epithelial Cell,Urine < 1 /hpf (0-5); Urobilinogen,Urine Negative mg/dL (0.0-1.0); WBC,Urine 1 /hpf (0-5)
[2024-04-06 16:13] LABS: Carcinoembryonic Antigen 12.8 ng/mL (0.0-5.0)
[2024-04-06 16:15] LABS: Alanine Aminotransferase 14 U/L (10-49); Albumin, Serum 4.4 gm/dL (3.4-4.8); Albumin/Globulin Ratio 1.8 (1.2-2.2); Alkaline Phosphatase 101 U/L (46-116); Anion Gap 8 (7-16); Aspartate Amino Transferase 19 U/L (0-34); BUN/Creatinine Ratio 21 Ratio (12-20); Bilirubin,Total 0.4 mg/dL (0.3-1.2); Blood Urea Nitrogen 23 mg/dL (9-23); Calcium 9.9 mg/dL (8.3-10.6); Calcium (Corrected) 9.9 mg/dL (8.5-10.1); Carbon Dioxide 23.6 mMol/L (20.0-31.0); Chloride 104 mMol/L (98-107); Creatinine (Component) 1.1 mg/dL (0.6-1.3); Globulin 2.4 gm/dL (2.3-3.5); Glucose 98 mg/dL (74-106); Osmolality,Calculated 275 (275-295); Potassium 4.4 mMol/L (3.4-5.1); Sodium 136 mMol/L (136-145); Total Protein 6.8 gm/dL (5.7-8.2); eGFR 58 See Note
[2024-04-19 16:20] LABS: Collection Type, Urine Voided
[2024-04-19 16:27] LABS: Basophils # (Auto) 0.1 Thou/mm3 (0.0-0.2); Basophils % (Auto) 1 % (0-2.5); Eosinophils # (Auto) 0.2 Thou/mm3 (0.0-0.5); Eosinophils % (Auto) 3 % (0-10); Hematocrit 36.4 % (36.0-46.0); Hemoglobin 11.7 g/dL (12.0-16.0); Immature Granulocytes % (Auto) 0 % (0-0); Immature Granulocytes Auto 0.01 Thou/mm3 (0.00-0.00); Lymphocytes # (Auto) 1.1 Thou/mm3 (1.0-4.8); Lymphocytes % (Auto) 20 % (10-50); Mean Corpuscular HGB Conc 32.1 g/dl (31.0-37.0); Mean Corpuscular Hemoglobin 30.8 pg (25.0-35.0); Mean Corpuscular Volume 96 fL (80-100); Monocytes # (Auto) 0.4 Thou/mm3 (0.0-0.8); Monocytes % (Auto) 8 % (0-12); Neutrophils # (Auto) 3.7 Thou/mm3 (1.8-7.7); Neutrophils % (Auto) 68 % (37-80); Nucleated Red Blood Cell % 0 /100 WBC (0); Platelet Count 186 Thou/mm3 (140-440); RDW Standard Deviation 63.7 fL (36.4-46.3); White Blood Count 5.4 Thou/mm3 (3.6-11.0)
[2024-04-19 16:41] LABS: Bilirubin,Urine Negative (Negative); Blood,Urine Negative (Negative); Clarity,Urine Clear (Clear/Hazy); Color,Urine Yellow (Lt Yel-Yel); Glucose, Urine Negative (Negative); Hyaline Casts,Urine < 1 /hpf (0-1); Ketones,Urine Negative (Negative); Leukocyte Esterase,Urine Negative (Negative); Nitrite,Urine Negative (Negative); PH,Urine 5.5 (5.0-7.0); Protein,Urine Negative (Neg - Trace); RBC,Urine 2 /hpf (0-3); Specific Gravity,Urine 1.022 (1.001-1.035); Squamous Epithelial Cell,Urine 1 /hpf (0-5); Urobilinogen,Urine Negative mg/dL (0.0-1.0); WBC,Urine 4 /hpf (0-5)
[2024-04-19 16:45] LABS: Alanine Aminotransferase 12 U/L (10-49); Albumin, Serum 4.2 gm/dL (3.4-4.8); Albumin/Globulin Ratio 1.8 (1.2-2.2); Alkaline Phosphatase 78 U/L (46-116); Anion Gap 11 (7-16); Aspartate Amino Transferase 21 U/L (0-34); BUN/Creatinine Ratio 22 Ratio (12-20); Bilirubin,Total 0.4 mg/dL (0.3-1.2); Blood Urea Nitrogen 20 mg/dL (9-23); Carbon Dioxide 24.6 mMol/L (20.0-31.0); Chloride 105 mMol/L (98-107); Creatinine (Component) 0.9 mg/dL (0.6-1.3); Globulin 2.4 gm/dL (2.3-3.5); Glucose 105 mg/dL (74-106); Osmolality,Calculated 283 (275-295); Potassium 3.9 mMol/L (3.4-5.1); Sodium 141 mMol/L (136-145); Total Protein 6.6 gm/dL (5.7-8.2); eGFR > 60 See Note
== END 2024-04-22 23:59 | disposition home or self-care (01) ==
LOC: SCTC 13:30
PROVIDERS: PCP Internal Medicine; Referring Provider Internal Medicine; Visit Provider Internal Medicine Hematology & Oncology
DX: Z51.11 Encounter for antineoplastic chemotherapy (principal); C20 Malignant neoplasm of rectum; C78.01 Secondary malignant neoplasm of right lung; G89.3 Neoplasm related pain (acute) (chronic)
CPT/HCPCS: 36591; 80053; 81001; 82378; 85025; 96413; 99212; A4216; J1642; J7050; Q5107; G0463

== ENCOUNTER 2024-06-21 09:12 | Outpatient (RCR) | payer MEDICARE, SELFPAY ==
--- NOTE | 2024-05-24 22:33 | CTCFLWUP_ITS ---
Patient: QUETA MONTENEGRO : 1965 Page 8 of 10 FOLLOW UP NOTE DATE OF SERVICE: 05/24/2024 NAME: QUETA MONTENEGRO ACCOUNT: [id number] : 1965 AGE: 58 INTERVAL HISTORY: Patient is complaining of pain over her ribs. Patient was recently admitted in the hospital with a pneumonia. Patient's imaging in the hospital showed progression of disease. Patient's last chemotherapy was in January with bevacizumab and capecitabine. Patient treated with antibiotics. No fever but still have cough. ONCOLOGY HISTORY:?[facility] On[facility] Hx? DIAGNOSIS: Malignant neoplasm of rectum [ICD10] C20; Secondary malignant neoplasm of unspecified lung [ICD10] C78.00 DATE OF DIAGNOSIS: 06/08/2017 Initially diagnosed with rectal cancer in 2009 as stage III and in 2018 as stage IV STAGE/TNM: Stage IV TREATMENT HISTORY: Care?Plan Start?Date Cycle Day Intent FOLFIRI?+?Bevacizumab?10?mg/kg 07/14/2017 1 28 Definitive Rx?Capecitabine?+?Bevacizumab?7.5mg/kg 02/01/2018 1 21 Palliative 5FU?infu?avastin 02/17/2019 1 14 Palliative FOLFIRI?+?Bevacizumab?5mg/kg 02/28/2020 1 14 Palliative Bevacizumab?7.5?mg/kg?-?Met 07/03/2020 1 21 Palliative HISTORY OF PRESENT ILLNESS: 08/10/2009: Rectal mass biopsy showed moderately differentiated adenocarcinoma. K-laurence mutation not detected. No loss of expression of MMR proteins. She was treated with neoadjuvant chemoradiation at [place]. Following the surgery she was found to have T2N2 stage III disease. Postoperatively she was treated with adjuvant chemotherapy with FOLFOX. 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 06/08/2017: CT-guided biopsy of the lung mass showed metastatic carcinoma consistent with colorectal primary. Intact and and or expression. PDL 1 expression negative. Since last visit patient was seen at [place] on the 10/07/2017. She had a CT scan of the chest abdomen pelvis with contrast done. CT scan showed a right upper lobe 14 x 11 mm and the right lower lobe 15 x 9 mm lesions. Both of these are smaller when compared to the previous scans. Patient is in the clinic today for follow-up. The recommendation from a [place] physician is to continue current regimen of chemotherapy of full feeding and Avastin. Patient is clinically doing very well. Denies any cough chest pain abdominal pain or leg cramps. 11/09/2017: Patient is in the clinic today for follow-up. Since last visit I have discussed her case with Dr. Rusty Rangel of [place]. She reviewed the CT scans with her cardiothoracic surgeon at [place]. According to her patient is not a surgical candidate. 07/14/2017?12/23/2017: Patient was treated with 12 cycles of FOLFIRI plus Avastin. FOLFIRI chemotherapy was stopped due to significant nausea, vomiting as well as diarrhea. 02/01/2018: Patient was started on capecitabine and Avastin chemotherapy. 07/14/2018: CT scan of chest abdomen and pelvis at [place]?status post low anterior resection tor treatment of a rectal malignancy. Stable pulmonary and pleural metastases. No evidence of metastatic disease in the abdomen or pelvis 02/17/2019: Patient was started on Capecitabine and Avastin again. 03/02/2019: Patient is started on 5-FU and Avastin. Capecitabine discontinued due to side effects 07/05/2019: Patient received last cycle of 5-FU and Avastin. 08/03/2019: CT scan of the chest abdomen and pelvis with contrast at [place]? 10/04/2019?10/11/2019: Patient received 5400 cGy radiation to the right lung CTV 1 818 2019?9 02/2019: Patient received 5000 cGy radiation to right lung CTV 2. 10/27/2019?11/10/2019: Patient received 4000 cGy to the right lung CTV 3. 12/19/2019: CT scan of the chest with IV contrast? 01/15/2020: Patient had right-sided therapeutic thoracentesis. 1900 cc of dark red fluid was removed. Cytology showed metastatic adenocarcinoma consistent with colorectal primary. 01/26/2020: CT scan of the chest abdomen and pelvis with IV contrast? 01/28/2020: PET CT scan? 02/28/2020: Patient received first cycle of dose reduced FOLFIRI with Avastin. 05/23/2020: CT scan of the chest abdomen and pelvis with IV contrast? 05/25/2020: PET CT scan? 06/19/2020: Patient received last dose of FOLFIRI. 07/03/2020: Patient is started on capecitabine 1500 mg p.o. twice daily on a 2 weeks on and 1 week off regimen along with Avastin. 09/14/2020: CT scan of the chest abdomen and pelvis with IV contrast? 07/24/2020: CEA 3.4. 09/04/2020: CEA 5.3. 11/23/2020: CEA 2.3. 03/11/2021: CEA 4.2. 04/01/2021: CEA 5.3. 05/13/2021: CEA 8.9. 06/03/2021: CEA 9.9. 08/22/2021: CEA 8.8. 08/09/2021: CT scan of the chest abdomen and pelvis with IV contrast? 11/18/2021: CEA 11.0. 01/02/2022: CT scan of the chest abdomen and pelvis with IV contrast? 04/15/2022: CEA 13.3. 10/08/2022: CEA 12.7. 04/06/2023: X-rays of the rib right side unilateral? 04/08/2023: Ultrasound of the right upper back 05/08/2023: PET/CT scan?the PET CT scan was compared to a PET CT scan done on December 09, [address] scan of the chest abdomen and pelvis done on November 03, 2022. 06/23/2023: Ms. Montenegro had EBUS guided fine-needle aspiration of the mediastinal lymph node? OTHER MEDICAL HISTORY/CONDITIONS: FAMILY HISTORY: ?Clone Family Hx? 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 Align - As directed 2. amlodipine - 10 mg 1 tab Twice a Day 3. beclomethasone dipropionate - 40 mcg/actuation 1 Puff(s) 1 puff twice a day 4. CholestOff Complete - 300-100 mg 1 Capsule Daily 5. clonazePAM - 0.5 mg 1 tab Every day before sleep 6. Estroven - 155 mg Capsule Daily 7. famotidine - 40 mg 1 tab Daily 8. Fish Oil - 300 mg 1 Capsule Twice a Day 9. flaxseed oil - 1,000 mg 1 Capsule Three times a day 10. HYDROcodone-acetaminophen - 10-325 mg 1 tab As directed 11. hyoscyamine sulfate - 0.125 mg 1 - 2 tab q4 12. Imodium A-D - 2 mg 1 Capsule As directed 13. levothyroxine - 25 mcg 1 tab Daily 14. Lomotil - 2.5-0.025 mg 2 tab four times a day 15. Lonsurf - 20-8.19 mg 3 tab Daily 16. meloxicam - Daily 17. Metamucil - As directed 18. methylphenidate HCl - 5 mg 1 tab twice a day 19. metoprolol tartrate - 100 mg 1 tab Daily 20. ondansetron - 8 mg 1 tab 1 tab every 8 hrs as needed for nausea 21. ondansetron - 8 mg 1 tab As directed 22. Ritalin - 5 mg 1 tab 1 tab po twice a day 23. Trelegy Ellipta - 100-62.5-25 mcg 1 As directed 24. Tylenol Extra Strength - 500 mg 2 Capsule As needed 25. Ventolin HFA - 90 mcg/actuation 1 - 2 Puff(s) q4 26. Vitamin D3 - 5,000 unit 5,000 Units Daily 27. Zoloft - 50 mg 1 tab As directed?[facility] Meds? Medications Last Reconciled by Yi Garcia MA on 03/28/2024 ALLERGIES: No Known Drug Allergies REVIEW OF SYSTEMS: A complete 14-point review of systems was performed and is negative except as noted in interval history. PHYSICAL EXAMINATION:?[facility] PE? VITAL SIGNS: Temperature?99.6, B/P?116/81, Oxygen?Saturation?98% Weight?146?lbs Alert oriented x 4 Palms and soles are slightly red red. Minimal desquamation of the skin present. She also has mild redness of the right big toe. Neck is supple. No adenopathy palpable in the neck, axillary and inguinal region. Chest clear to auscultation. No wheezes or rales audible. CVS rhythm regular. Right upper quadrant of the abdomen is tender on deep palpation. No masses palpable. LABORATORY DATA: I have personally reviewed and interpreted each of the patient?s relevant lab tests, abnormal findings are below: Date 04/06/24 04/19/24 ??WHITE?BLOOD?COUNT?(Thou/mm3) 6.5 5.4 ??RED?BLOOD?COUNT?(Miln/mm3) 3.92?L 3.80?L ??HEMOGLOBIN?(gm/dl) 12.0 11.7?L ??HEMATOCRIT?(%) 38.1 36.4 ??PLATELET?COUNT?(Thou/mm3) 341 186 ??NEUTROPHILS?%,?AUTO?(%) 70 68 ??LYMPH?%,?AUTO?(%) 19 20 ??NEUTROPHILS,?AUTO?(Thou/mm3) 4.6 3.7 ??GLUCOSE,RANDOM?(mg/dL) ? 105 ??BLOOD?UREA?NITROGEN?(mg/dL) ? 20 ??CREATININE?(mg/dL) ? 0.90 ??SODIUM?(mmol/L) ? 141 ??POTASSIUM?(mmol/L) ? 3.9 ??CHLORIDE?(mmol/L) ? 105 ??CrCl?(CandG)?(ml/min) ? 71.11 ??AST/SGOT?(Unit/L) ? 21 ??ALT/SGPT?(Unit/L) ? 12 ??ALKALINE?PHOSPHATASE?(Unit/L) ? 78 ??BILIRUBIN,?TOTAL?(mg/dL) ? 0.4 ??PROTEIN?TOTAL?(gm/dl) ? 6.6 ??ALBUMIN,?SERUM?(gm/dl) ? 4.2 ??GLOBULIN?(gm/dl) ? 2.4 ??ALBUMIN/GLOBULIN?RATIO ? 1.8 ??CALCIUM,?SERUM?(mg/dL) ? 10.0 ??CALCIUM?SERUM?(CORRECTED)?(mg/dL) ? 10.0 ??CEA?(O*)?(ng/ml) ? 17.0?H ASSESSMENT/PLAN:?Ankit Mandujano Assessment/Plan? Metastatic colon cancer Patient has been treated with chemoradiation. Patient received following treatment so far FOLFOX> IRI> FOLFIRI and Avastin> Avastin> Xeloda and Avastin Patient is currently on Xeloda and Avastin Patient have wild-type BRAF K-laurence PET CT scan as well as CT scans reviewed and have progression of disease Will refer to radiation for radiation to her lung upper lobe as well as ribs Will change chemotherapy to Lonsurf CBC CMP CEA Lonsurf chemotherapy, patient can continue bevacizumab and capecitabine for 1 more cycle while we get [place] approved Biopsy of the growing rib lesion to see if patient is a candidate for targetable therapies PET CT scan shows disease limited to the lymph nodes in the chest Biopsy already completed will follow-up on the results at the next visit Patient is on Lonsurf and tolerating well ORDERS: Order # Description [id number] Comprehensive Metabolic Panel - 12 + CBC with Auto Diff + CEA RETURN TO CLINIC: I will see her back in the clinic in 2 months. BILLING AND COMPLIANCE: I reviewed external records from providers outside my specialty as summarized above. I spent a total of 50 minutes on this patient?s care on the day of their visit excluding time spent related to any billed procedures. This time includes time spent with the patient as well as time spent documenting in the medical record, reviewing patients records and tests, obtaining history, placing orders, communicating with other healthcare professionals, counseling the patient, family or caregiver, and/or care coordination for the diagnoses above. Electronically Signed by: Kapil Mandujano MD T: 10:31 PM CC: Wojciech? PCP: No Primary/family, Physician Referring: Kapil Mandujano This document was completed utilizing speech recognition software. Grammatical errors, random word insertions, pronoun errors, and incomplete sentences are an occasional consequence of this system due to software limitations, ambient noise, and hardware issues. Any formal questions or concerns about the content, text or information contained within the body of this dictation should be directly addressed to the provider for clarification.
[2024-05-25 10:49] LABS: Collection Type, Urine Voided
[2024-05-25 11:08] LABS: Bilirubin,Urine Negative (Negative); Blood,Urine Negative (Negative); Clarity,Urine Clear (Clear/Hazy); Color,Urine Yellow (Lt Yel-Yel); Glucose, Urine Negative (Negative); Ketones,Urine Negative (Negative); Leukocyte Esterase,Urine Negative (Negative); Nitrite,Urine Negative (Negative); PH,Urine 5.5 (5.0-7.0); Protein,Urine Negative (Neg - Trace); RBC,Urine 1 /hpf (0-3); Squamous Epithelial Cell,Urine < 1 /hpf (0-5); Urobilinogen,Urine Negative mg/dL (0.0-1.0); WBC,Urine 3 /hpf (0-5)
[2024-05-25 11:10] LABS: Basophils % (Auto) 0 % (0-2.5); Eosinophils % (Auto) 1 % (0-10); Hematocrit 31.1 % (36.0-46.0); Hemoglobin 10.2 g/dL (12.0-16.0); Immature Granulocytes % (Auto) 0 % (0-0); Lymphocytes # (Auto) 0.6 Thou/mm3 (1.0-4.8); Lymphocytes % (Auto) 40 % (10-50); Mean Corpuscular HGB Conc 32.8 g/dl (31.0-37.0); Mean Corpuscular Hemoglobin 31.4 pg (25.0-35.0); Mean Corpuscular Volume 96 fL (80-100); Monocytes # (Auto) 0.2 Thou/mm3 (0.0-0.8); Monocytes % (Auto) 14 % (0-12); Neutrophils # (Auto) 0.7 Thou/mm3 (1.8-7.7); Neutrophils % (Auto) 45 % (37-80); Nucleated Red Blood Cell % 0 /100 WBC (0); Platelet Count 164 Thou/mm3 (140-440); RDW Standard Deviation 58.9 fL (36.4-46.3); Red Blood Count 3.25 Miln/mm3 (4.00-5.20)
[2024-05-25 11:15] LABS: Alanine Aminotransferase 32 U/L (10-49); Albumin, Serum 3.9 gm/dL (3.4-4.8); Alkaline Phosphatase 98 U/L (46-116); Anion Gap 11 (7-16); Aspartate Amino Transferase 28 U/L (0-34); BUN/Creatinine Ratio 26 Ratio (12-20); Bilirubin,Total 0.6 mg/dL (0.3-1.2); Blood Urea Nitrogen 23 mg/dL (9-23); Calcium (Corrected) 9.1 mg/dL (8.5-10.1); Carbon Dioxide 20.5 mMol/L (20.0-31.0); Chloride 110 mMol/L (98-107); Creatinine (Component) 0.9 mg/dL (0.6-1.3); Glucose 130 mg/dL (74-106); Osmolality,Calculated 286 (275-295); Potassium 3.4 mMol/L (3.4-5.1); Sodium 141 mMol/L (136-145); Total Protein 5.9 gm/dL (5.7-8.2); eGFR > 60 See Note
[2024-05-25 11:17] LABS: White Blood Count 1.6 Thou/mm3 (3.6-11.0)
[2024-05-25 11:18] LABS: Carcinoembryonic Antigen 16.8 ng/mL (0.0-5.0)
[2024-05-30 09:37] LABS: Basophils % (Auto) 1 % (0-2.5); Eosinophils % (Auto) 1 % (0-10); Hematocrit 34.9 % (36.0-46.0); Immature Granulocytes % (Auto) 1 % (0-0); Immature Granulocytes Auto 0.01 Thou/mm3 (0.00-0.00); Lymphocytes # (Auto) 0.7 Thou/mm3 (1.0-4.8); Lymphocytes % (Auto) 42 % (10-50); Mean Corpuscular HGB Conc 31.5 g/dl (31.0-37.0); Mean Corpuscular Hemoglobin 30.5 pg (25.0-35.0); Mean Corpuscular Volume 97 fL (80-100); Monocytes # (Auto) 0.3 Thou/mm3 (0.0-0.8); Monocytes % (Auto) 18 % (0-12); Neutrophils # (Auto) 0.7 Thou/mm3 (1.8-7.7); Neutrophils % (Auto) 38 % (37-80); Nucleated Red Blood Cell % 0 /100 WBC (0); Platelet Count 295 Thou/mm3 (140-440); RDW Standard Deviation 60.9 fL (36.4-46.3); Red Blood Count 3.61 Miln/mm3 (4.00-5.20)
[2024-05-30 09:40] LABS: White Blood Count 1.8 Thou/mm3 (3.6-11.0)
[2024-06-06 13:44] LABS: Collection Type, Urine Voided
[2024-06-06 13:49] LABS: Basophils # (Auto) 0.1 Thou/mm3 (0.0-0.2); Basophils % (Auto) 1 % (0-2.5); Eosinophils % (Auto) 0 % (0-10); Hematocrit 37.4 % (36.0-46.0); Hemoglobin 11.7 g/dL (12.0-16.0); Immature Granulocytes % (Auto) 1 % (0-0); Immature Granulocytes Auto 0.03 Thou/mm3 (0.00-0.00); Lymphocytes # (Auto) 0.8 Thou/mm3 (1.0-4.8); Lymphocytes % (Auto) 15 % (10-50); Mean Corpuscular HGB Conc 31.3 g/dl (31.0-37.0); Mean Corpuscular Hemoglobin 30.9 pg (25.0-35.0); Mean Corpuscular Volume 99 fL (80-100); Monocytes # (Auto) 0.4 Thou/mm3 (0.0-0.8); Monocytes % (Auto) 8 % (0-12); Neutrophils % (Auto) 75 % (37-80); Nucleated Red Blood Cell % 0 /100 WBC (0); Platelet Count 216 Thou/mm3 (140-440); Red Blood Count 3.79 Miln/mm3 (4.00-5.20); White Blood Count 5.3 Thou/mm3 (3.6-11.0)
[2024-06-06 14:04] LABS: Alanine Aminotransferase 12 U/L (10-49); Albumin, Serum 4.1 gm/dL (3.4-4.8); Alkaline Phosphatase 84 U/L (46-116); Anion Gap 7 (7-16); Aspartate Amino Transferase 19 U/L (0-34); BUN/Creatinine Ratio 18 Ratio (12-20); Bilirubin,Total 0.3 mg/dL (0.3-1.2); Blood Urea Nitrogen 18 mg/dL (9-23); Calcium 9.7 mg/dL (8.3-10.6); Calcium (Corrected) 9.7 mg/dL (8.5-10.1); Carbon Dioxide 27.7 mMol/L (20.0-31.0); Chloride 107 mMol/L (98-107); Globulin 2.1 gm/dL (2.3-3.5); Glucose 113 mg/dL (74-106); Osmolality,Calculated 286 (275-295); Potassium 4.5 mMol/L (3.4-5.1); Sodium 142 mMol/L (136-145); Total Protein 6.2 gm/dL (5.7-8.2); eGFR > 60 See Note
[2024-06-06 14:07] LABS: Carcinoembryonic Antigen 24.9 ng/mL (0.0-5.0)
[2024-06-06 14:22] LABS: Bilirubin,Urine Negative (Negative); Blood,Urine Negative (Negative); Clarity,Urine Clear (Clear/Hazy); Color,Urine Yellow (Lt Yel-Yel); Glucose, Urine Negative (Negative); Hyaline Casts,Urine < 1 /hpf (0-1); Ketones,Urine Negative (Negative); Leukocyte Esterase,Urine Negative (Negative); Nitrite,Urine Negative (Negative); PH,Urine 5.5 (5.0-7.0); Protein,Urine Negative (Neg - Trace); RBC,Urine 4 /hpf (0-3); Specific Gravity,Urine 1.025 (1.001-1.035); Squamous Epithelial Cell,Urine 1 /hpf (0-5); Urobilinogen,Urine Negative mg/dL (0.0-1.0); WBC,Urine 3 /hpf (0-5)
--- NOTE | 2024-06-14 12:49 | CTCFLWUP_ITS ---
Patient: QUETA MONTENEGRO : 1965 MR#: [id number] Page 2 of 2 TELEHEALTH FOLLOW UP NOTE DATE OF CONSULTATION: 06/14/2024 NAME: QUETA MONTENEGRO ACCOUNT: [id number] : 1965 AGE: 58 REFERRING PHYSICIAN: Kapil Mandujano MD PRIMARY PHYSICIAN: Physician No Primary/Family MD INTERVAL HISTORY: Patient doing well with lonsurf and shelli . she is taking Zofran for her nausea. DIAGNOSIS: Malignant neoplasm of rectum [ICD10] C20; Secondary malignant neoplasm of unspecified lung [ICD10] C78.00 HISTORY OF PRESENT ILLNESS: 58-year-old female 08/10/2009: Rectal mass biopsy showed moderately differentiated adenocarcinoma. K-laurence mutation not detected. No loss of expression of MMR proteins. She was treated with neoadjuvant chemoradiation at [place]. Following the surgery she was found to have T2N2 stage III disease. Postoperatively she was treated with adjuvant chemotherapy with FOLFOX. 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 06/08/2017: CT-guided biopsy of the lung mass showed metastatic carcinoma consistent with colorectal primary. Intact and and or expression. PDL 1 expression negative. Since last visit patient was seen at [facility] on the 10/07/2017. She had a CT scan of the chest abdomen pelvis with contrast done. CT scan showed a right upper lobe 14 x 11 mm and the right lower lobe 15 x 9 mm lesions. Both of these are smaller when compared to the previous scans. Patient is in the clinic today for follow-up. The recommendation Patient: QUETA MONTENEGRO : 1965 Page 2 of 10 from a [facility] physician is to continue current regimen of chemotherapy of full feeding and Avastin. Patient is clinically doing very well. Denies any cough chest pain abdominal pain or leg cramps. 11/09/2017: Patient is in the clinic today for follow-up. Since last visit I have discussed her case with Dr. Rusty Rangel of [place]. She reviewed the CT scans with her cardiothoracic surgeon at [facility]. According to her patient is not a surgical candidate. 07/14/2017?12/23/2017: Patient was treated with 12 cycles of FOLFIRI plus Avastin. FOLFIRI chemotherapy was stopped due to significant nausea, vomiting as well as diarrhea. 02/01/2018: Patient was started on capecitabine and Avastin chemotherapy. 07/14/2018: CT scan of chest abdomen and pelvis at [facility]?status post low anterior resection tor treatment of a rectal malignancy. Stable pulmonary and pleural metastases. No evidence of metastatic disease in the abdomen or pelvis 02/17/2019: Patient was started on Capecitabine and Avastin again. 03/02/2019: Patient is started on 5-FU and Avastin. Capecitabine discontinued due to side effects 07/05/2019: Patient received last cycle of 5-FU and Avastin. 08/03/2019: CT scan of the chest abdomen and pelvis with contrast at [facility]? 10/04/2019?10/11/2019: Patient received 5400 cGy radiation to the right lung CTV 1 818 2019?02/2019: Patient received 5000 cGy radiation to right lung CTV 2. 10/27/2019?11/10/2019: Patient received 4000 cGy to the right lung CTV 3. 12/19/2019: CT scan of the chest with IV contrast? 01/15/2020: Patient had right-sided therapeutic thoracentesis. 1900 cc of dark red fluid was removed. Cytology showed metastatic adenocarcinoma consistent with colorectal primary. 01/26/2020: CT scan of the chest abdomen and pelvis with IV contrast? Patient: QUETA MONTENEGRO : 1965 Page 3 of 10 01/28/2020: PET CT scan? 02/28/2020: Patient received first cycle of dose reduced FOLFIRI with Avastin. 05/23/2020: CT scan of the chest abdomen and pelvis with IV contrast? 05/25/2020: PET CT scan? Patient: QUETA MONTENEGRO : 1965 Page 4 of 10 06/19/2020: Patient received last dose of FOLFIRI. 07/03/2020: Patient is started on capecitabine 1500 mg p.o. twice daily on a 2 weeks on and 1 week off regimen along with Avastin. 09/14/2020: CT scan of the chest abdomen and pelvis with IV contrast? 07/24/2020: CEA 3.4. 09/04/2020: CEA 5.3. 11/23/2020: CEA 2.3. 03/11/2021: CEA 4.2. 04/01/2021: CEA 5.3. 05/13/2021: CEA 8.9. 06/03/2021: CEA 9.9. 08/22/2021: CEA 8.8. 08/09/2021: CT scan of the chest abdomen and pelvis with IV contrast? Patient: QUETA MONTENEGRO : 1965 Page 5 of 10 11/18/2021: CEA 11.0. 01/02/2022: CT scan of the chest abdomen and pelvis with IV contrast? 04/15/2022: CEA 13.3. 10/08/2022: CEA 12.7. 04/06/2023: X-rays of the rib right side unilateral? 04/08/2023: Ultrasound of the right upper back 05/08/2023: PET/CT scan?the PET CT scan was compared to a PET CT scan done on December 09, [address] scan of the chest abdomen and pelvis done on November 03, 2022. Patient: QUETA MONTENEGRO : 1965 Page 6 of 10 06/23/2023: Ms. Montenegro had EBUS guided fine-needle aspiration of the mediastinal lymph node? 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 Align - As directed 2. amlodipine - 10 mg 1 tab Twice a Day 3. beclomethasone dipropionate - 40 mcg/actuation 1 Puff(s) 1 puff twice a day 4. CholestOff Complete - 300-100 mg 1 Capsule Daily 5. clonazePAM - 0.5 mg 1 tab Every day before sleep 6. Estroven - 155 mg Capsule Daily 7. famotidine - 40 mg 1 tab Daily 8. Fish Oil - 300 mg 1 Capsule Twice a Day 9. flaxseed oil - 1,000 mg 1 Capsule Three times a day 10. HYDROcodone-acetaminophen - 10-325 mg 1 tab As directed 11. hyoscyamine sulfate - 0.125 mg 1 - 2 tab q4 12. Imodium A-D - 2 mg 1 Capsule As directed 13. levothyroxine - 25 mcg 1 tab Daily 14. Lomotil - 2.5-0.025 mg 2 tab four times a day 15. Lonsurf - 20-8.19 mg 3 tab Daily 16. meloxicam - Daily 17. Metamucil - As directed 18. methylphenidate HCl - 5 mg 1 tab twice a day 19. metoprolol tartrate - 100 mg 1 tab Daily 20. ondansetron - 8 mg 1 tab 1 tab every 8 hrs as needed for nausea 21. ondansetron - 8 mg 1 tab As directed 22. Ritalin - 5 mg 1 tab 1 tab po twice a day 23. Trelegy Ellipta - 100-62.5-25 mcg 1 As directed 24. Tylenol Extra Strength - 500 mg 2 Capsule As needed 25. Ventolin HFA - 90 mcg/actuation 1 - 2 Puff(s) q4 26. Vitamin D3 - 5,000 unit 5,000 Units Daily 27. Zoloft - 50 mg 1 tab As dire Medications Last Reconciled by Cailin Jack MA on 06/14/2024 ALLERGIES: No Known Drug Allergies REVIEW OF SYSTEMS: A complete 14-point review of systems was performed and is negative except as noted in interval history. PHYSICAL EXAMINATION: The patient appeared well-nourished, alert, and in no apparent distress via video conferencing. LABORATORY DATA: I have personally reviewed and interpreted each of the patient?s relevant lab tests, abnormal findings are below: ASSESSMENT/PLAN: Metastatic colon cancer Patient has been treated with chemoradiation. Patient received following treatment so far FOLFOX> IRI> FOLFIRI and Avastin> Avastin> Xeloda and Avastin Patient is currently on Xeloda and Avastin Patient have wild-type BRAF K-laurence PET CT scan as well as CT scans reviewed and have progression of disease Will refer to radiation for radiation to her lung upper lobe as well as ribs Will change chemotherapy to Lonsurf CBC CMP CEA Lonsurf chemotherapy, patient can continue bevacizumab and capecitabine for 1 more cycle while we get Lonsurf approved Biopsy of the growing rib lesion to see if patient is a candidate for targetable therapies PET CT scan shows disease limited to the lymph nodes in the chest Biopsy already completed will follow-up on the results at the next visit Patient is on Lonsurf and SHELLI and tolerating well ORDERS: Order # Description [id number] Follow Up 3 Week [id number] Comprehensive Metabolic Panel - 12 + CBC with Auto Diff [id number] CEA RETURN TO CLINIC: 4 weeks BILLING AND COMPLIANCE: I reviewed external records from providers outside my specialty as summarized above. I spent a total of 50 minutes on this patient?s care on the day of their visit excluding time spent related to any billed procedures. This time includes time spent with the patient as well as time spent documenting in the medical record, reviewing patients records and tests, obtaining history, placing orders, communicating with other healthcare professionals, counseling the patient, family or caregiver, and/or care coordination for the diagnoses above. I performed this evaluation using real-time Telehealth tools. Prior to initiating, the patient consented to perform this evaluation using Telehealth tools. Electronically Signed by: Kapil Mandujano MD T: 12:47 PM CC: Wojciech? PCP: No Primary/family, Physician Referring: Kapil Mandujano This document was completed utilizing speech recognition software. Grammatical errors, random word insertions, pronoun errors, and incomplete sentences are an occasional consequence of this system due to software limitations, ambient noise, and hardware issues. Any formal questions or concerns about the content, text or information contained within the body of this dictation should be directly addressed to the provider for clarification.
[2024-06-20 10:00] LABS: Collection Type, Urine Voided
[2024-06-20 10:06] LABS: Basophils % (Auto) 1 % (0-2.5); Eosinophils # (Auto) 0.1 Thou/mm3 (0.0-0.5); Eosinophils % (Auto) 2 % (0-10); Hematocrit 33.5 % (36.0-46.0); Hemoglobin 10.8 g/dL (12.0-16.0); Immature Granulocytes % (Auto) 1 % (0-0); Immature Granulocytes Auto 0.02 Thou/mm3 (0.00-0.00); Lymphocytes # (Auto) 0.7 Thou/mm3 (1.0-4.8); Lymphocytes % (Auto) 19 % (10-50); Mean Corpuscular HGB Conc 32.2 g/dl (31.0-37.0); Mean Corpuscular Hemoglobin 31.4 pg (25.0-35.0); Mean Corpuscular Volume 97 fL (80-100); Monocytes # (Auto) 0.1 Thou/mm3 (0.0-0.8); Monocytes % (Auto) 3 % (0-12); Neutrophils # (Auto) 2.6 Thou/mm3 (1.8-7.7); Neutrophils % (Auto) 75 % (37-80); Nucleated Red Blood Cell % 0 /100 WBC (0); Platelet Count 139 Thou/mm3 (140-440); RDW Standard Deviation 57.1 fL (36.4-46.3); Red Blood Count 3.44 Miln/mm3 (4.00-5.20); White Blood Count 3.5 Thou/mm3 (3.6-11.0)
[2024-06-20 10:12] LABS: Bilirubin,Urine Negative (Negative); Blood,Urine Negative (Negative); Clarity,Urine Clear (Clear/Hazy); Color,Urine Yellow (Lt Yel-Yel); Glucose, Urine Negative (Negative); Ketones,Urine Negative (Negative); Leukocyte Esterase,Urine Negative (Negative); Nitrite,Urine Negative (Negative); PH,Urine 5.5 (5.0-7.0); Protein,Urine Negative (Neg - Trace); RBC,Urine 1 /hpf (0-3); Specific Gravity,Urine 1.024 (1.001-1.035); Squamous Epithelial Cell,Urine < 1 /hpf (0-5); Urobilinogen,Urine Negative mg/dL (0.0-1.0); WBC,Urine 2 /hpf (0-5)
[2024-06-20 10:21] LABS: Alanine Aminotransferase 30 U/L (10-49); Albumin, Serum 4.1 gm/dL (3.4-4.8); Albumin/Globulin Ratio 2.1 (1.2-2.2); Alkaline Phosphatase 85 U/L (46-116); Anion Gap 9 (7-16); Aspartate Amino Transferase 27 U/L (0-34); BUN/Creatinine Ratio 30 Ratio (12-20); Bilirubin,Total 0.7 mg/dL (0.3-1.2); Blood Urea Nitrogen 27 mg/dL (9-23); Calcium 8.9 mg/dL (8.3-10.6); Calcium (Corrected) 8.9 mg/dL (8.5-10.1); Chloride 111 mMol/L (98-107); Creatinine (Component) 0.9 mg/dL (0.6-1.3); Glucose 120 mg/dL (74-106); Osmolality,Calculated 289 (275-295); Potassium 4.3 mMol/L (3.4-5.1); Sodium 142 mMol/L (136-145); Total Protein 6.1 gm/dL (5.7-8.2); eGFR > 60 See Note
== END 2024-06-22 23:59 | disposition home or self-care (01) ==
LOC: SCTC 09:12
PROVIDERS: Referring Provider Internal Medicine Hematology & Oncology; Visit Provider Internal Medicine Hematology & Oncology
DX: Z51.11 Encounter for antineoplastic chemotherapy (principal); C20 Malignant neoplasm of rectum; C78.00 Secondary malignant neoplasm of unspecified lung; C79.51 Secondary malignant neoplasm of bone; Z92.3 Personal history of irradiation
CPT/HCPCS: 36591; 80053; 81001; 82378; 85025; 96413; 99212; A4216; J1642; J7040; J7050; Q5107; G0463

== ENCOUNTER → 2024-07-04 | Outpatient (CLI) | payer MEDICARE, SELFPAY ==
[2024-07-04 14:24] LABS: Basophils % (Auto) 1 % (0-2.5); Eosinophils % (Auto) 1 % (0-10); Hematocrit 33.9 % (36.0-46.0); Hemoglobin 11.1 g/dL (12.0-16.0); Immature Granulocytes % (Auto) 1 % (0-0); Immature Granulocytes Auto 0.01 Thou/mm3 (0.00-0.00); Lymphocytes # (Auto) 0.7 Thou/mm3 (1.0-4.8); Lymphocytes % (Auto) 35 % (10-50); Mean Corpuscular HGB Conc 32.7 g/dl (31.0-37.0); Mean Corpuscular Hemoglobin 30.9 pg (25.0-35.0); Mean Corpuscular Volume 94 fL (80-100); Monocytes # (Auto) 0.3 Thou/mm3 (0.0-0.8); Monocytes % (Auto) 17 % (0-12); Neutrophils % (Auto) 47 % (37-80); Nucleated Red Blood Cell % 0 /100 WBC (0); Platelet Count 301 Thou/mm3 (140-440); RDW Standard Deviation 60.8 fL (36.4-46.3); Red Blood Count 3.59 Miln/mm3 (4.00-5.20)
[2024-07-04 14:34] LABS: White Blood Count 2.1 Thou/mm3 (3.6-11.0)
[2024-07-04 14:38] LABS: Alanine Aminotransferase 17 U/L (10-49); Albumin, Serum 4.3 gm/dL (3.4-4.8); Alkaline Phosphatase 83 U/L (46-116); Anion Gap 9 (7-16); Aspartate Amino Transferase 22 U/L (0-34); BUN/Creatinine Ratio 14 Ratio (12-20); Bilirubin,Total 0.4 mg/dL (0.3-1.2); Blood Urea Nitrogen 11 mg/dL (9-23); Calcium 9.2 mg/dL (8.3-10.6); Calcium (Corrected) 9.2 mg/dL (8.5-10.1); Carbon Dioxide 30.1 mMol/L (20.0-31.0); Chloride 106 mMol/L (98-107); Creatinine (Component) 0.8 mg/dL (0.6-1.3); Globulin 2.2 gm/dL (2.3-3.5); Glucose 101 mg/dL (74-106); Osmolality,Calculated 288 (275-295); Potassium 4.1 mMol/L (3.4-5.1); Sodium 145 mMol/L (136-145); Total Protein 6.5 gm/dL (5.7-8.2); eGFR > 60 See Note
[2024-07-04 14:41] LABS: Carcinoembryonic Antigen 25.1 ng/mL (0.0-5.0)
[2024-07-04 15:30] LABS: Collection Type, Urine Clean Catch
[2024-07-04 15:58] LABS: Bilirubin,Urine Negative (Negative); Blood,Urine Negative (Negative); Clarity,Urine Clear (Clear/Hazy); Color,Urine Lt-Yellow (Lt Yel-Yel); Glucose, Urine Negative (Negative); Ketones,Urine Negative (Negative); Leukocyte Esterase,Urine Negative (Negative); Nitrite,Urine Negative (Negative); PH,Urine 6.5 (5.0-7.0); Protein,Urine Trace (Neg - Trace); RBC,Urine 4 /hpf (0-3); Specific Gravity,Urine 1.011 (1.001-1.035); Squamous Epithelial Cell,Urine < 1 /hpf (0-5); Urobilinogen,Urine Negative mg/dL (0.0-1.0); WBC,Urine 1 /hpf (0-5)
== END | disposition home or self-care (01) ==
LOC: COPL 13:39
PROVIDERS: PCP Internal Medicine; Referring Provider Internal Medicine Hematology & Oncology; Visit Provider Internal Medicine Hematology & Oncology
DX: C20 Malignant neoplasm of rectum (principal)
CPT/HCPCS: 36415; 80053; 81001; 82378; 85025

== ENCOUNTER 2024-07-13 09:29 | Outpatient (RCR) | payer MEDICARE, SELFPAY ==
[2024-07-12 08:58] LABS: Collection Type, Urine Voided
[2024-07-12 09:01] LABS: Basophils % (Auto) 1 % (0-2.5); Eosinophils % (Auto) 0 % (0-10); Hematocrit 40.7 % (36.0-46.0); Hemoglobin 13.2 g/dL (12.0-16.0); Immature Granulocytes % (Auto) 0 % (0-0); Immature Granulocytes Auto 0.02 Thou/mm3 (0.00-0.00); Lymphocytes % (Auto) 15 % (10-50); Mean Corpuscular HGB Conc 32.4 g/dl (31.0-37.0); Mean Corpuscular Hemoglobin 31.4 pg (25.0-35.0); Mean Corpuscular Volume 97 fL (80-100); Monocytes # (Auto) 0.5 Thou/mm3 (0.0-0.8); Monocytes % (Auto) 7 % (0-12); Neutrophils # (Auto) 5.2 Thou/mm3 (1.8-7.7); Neutrophils % (Auto) 77 % (37-80); Nucleated Red Blood Cell % 0 /100 WBC (0); Platelet Count 212 Thou/mm3 (140-440); RDW Standard Deviation 61.5 fL (36.4-46.3); White Blood Count 6.7 Thou/mm3 (3.6-11.0)
[2024-07-12 09:12] LABS: Bilirubin,Urine Negative (Negative); Blood,Urine 1+ (Negative); Color,Urine Yellow (Lt Yel-Yel); Glucose, Urine Negative (Negative); Hyaline Casts,Urine < 1 /hpf (0-1); Ketones,Urine Negative (Negative); Leukocyte Esterase,Urine Positive (Negative); Nitrite,Urine Negative (Negative); Protein,Urine 1+ (Neg - Trace); RBC,Urine 7 /hpf (0-3); Specific Gravity,Urine 1.022 (1.001-1.035); Squamous Epithelial Cell,Urine 5 /hpf (0-5); Urobilinogen,Urine Negative mg/dL (0.0-1.0); WBC,Urine 6 /hpf (0-5)
[2024-07-12 09:23] LABS: Alanine Aminotransferase 24 U/L (10-49); Albumin, Serum 4.4 gm/dL (3.4-4.8); Albumin/Globulin Ratio 1.8 (1.2-2.2); Alkaline Phosphatase 91 U/L (46-116); Anion Gap 11 (7-16); Aspartate Amino Transferase 31 U/L (0-34); BUN/Creatinine Ratio 14 Ratio (12-20); Bilirubin,Total 0.5 mg/dL (0.3-1.2); Blood Urea Nitrogen 13 mg/dL (9-23); Calcium 9.2 mg/dL (8.3-10.6); Calcium (Corrected) 9.2 mg/dL (8.5-10.1); Carbon Dioxide 23.8 mMol/L (20.0-31.0); Chloride 107 mMol/L (98-107); Creatinine (Component) 0.9 mg/dL (0.6-1.3); Globulin 2.4 gm/dL (2.3-3.5); Glucose 182 mg/dL (74-106); Osmolality,Calculated 288 (275-295); Potassium 3.5 mMol/L (3.4-5.1); Sodium 142 mMol/L (136-145); Total Protein 6.8 gm/dL (5.7-8.2); eGFR > 60 See Note
[2024-07-12 09:26] LABS: Carcinoembryonic Antigen 27.8 ng/mL (0.0-5.0)
[2024-07-12 09:28] LABS: Clarity,Urine Hazy (Clear/Hazy)
== END 2024-07-23 23:59 | disposition home or self-care (01) ==
LOC: SCTC 09:29
PROVIDERS: Internal Medicine Hematology & Oncology; PCP Internal Medicine; Referring Provider Radiology Therapeutic Radiology; Visit Provider Radiology Therapeutic Radiology
DX: Z51.11 Encounter for antineoplastic chemotherapy (principal); C20 Malignant neoplasm of rectum; C78.00 Secondary malignant neoplasm of unspecified lung; Z92.3 Personal history of irradiation
CPT/HCPCS: 36591; 80053; 81001; 82378; 85025; 96413; A4216; J1642; J7040; J7050; Q5107

== ENCOUNTER 2024-08-11 10:58 | Outpatient (RCR) | payer MEDICARE, SELFPAY ==
[2024-07-25 16:19] LABS: Collection Type, Urine Voided
[2024-07-25 16:29] LABS: Basophils % (Auto) 0 % (0-2.5); Eosinophils % (Auto) 0 % (0-10); Hematocrit 33.8 % (36.0-46.0); Immature Granulocytes % (Auto) 1 % (0-0); Immature Granulocytes Auto 0.02 Thou/mm3 (0.00-0.00); Lymphocytes # (Auto) 0.5 Thou/mm3 (1.0-4.8); Lymphocytes % (Auto) 21 % (10-50); Mean Corpuscular HGB Conc 32.5 g/dl (31.0-37.0); Mean Corpuscular Hemoglobin 31.1 pg (25.0-35.0); Mean Corpuscular Volume 96 fL (80-100); Monocytes # (Auto) 0.1 Thou/mm3 (0.0-0.8); Monocytes % (Auto) 3 % (0-12); Neutrophils # (Auto) 1.8 Thou/mm3 (1.8-7.7); Neutrophils % (Auto) 75 % (37-80); Nucleated Red Blood Cell % 0 /100 WBC (0); Platelet Count 109 Thou/mm3 (140-440); RDW Standard Deviation 54.5 fL (36.4-46.3); Red Blood Count 3.54 Miln/mm3 (4.00-5.20)
[2024-07-25 16:43] LABS: White Blood Count 2.4 Thou/mm3 (3.6-11.0)
[2024-07-25 16:48] LABS: Alanine Aminotransferase 32 U/L (10-49); Albumin, Serum 3.9 gm/dL (3.4-4.8); Albumin/Globulin Ratio 2.2 (1.2-2.2); Alkaline Phosphatase 82 U/L (46-116); Anion Gap 10 (7-16); Aspartate Amino Transferase 26 U/L (0-34); BUN/Creatinine Ratio 20 Ratio (12-20); Bilirubin,Total 0.4 mg/dL (0.3-1.2); Blood Urea Nitrogen 14 mg/dL (9-23); Calcium 8.5 mg/dL (8.3-10.6); Calcium (Corrected) 8.6 mg/dL (8.5-10.1); Carbon Dioxide 24.3 mMol/L (20.0-31.0); Carcinoembryonic Antigen 31.5 ng/mL (0.0-5.0); Chloride 109 mMol/L (98-107); Creatinine (Component) 0.7 mg/dL (0.6-1.3); Globulin 1.8 gm/dL (2.3-3.5); Glucose 125 mg/dL (74-106); Osmolality,Calculated 286 (275-295); Potassium 3.8 mMol/L (3.4-5.1); Sodium 143 mMol/L (136-145); Total Protein 5.7 gm/dL (5.7-8.2); eGFR > 60 See Note
[2024-07-25 17:20] LABS: Bilirubin,Urine Negative (Negative); Blood,Urine 1+ (Negative); Calcium Oxalate Crystals,Urine 1+; Clarity,Urine Turbid (Clear/Hazy); Color,Urine Yellow (Lt Yel-Yel); Glucose, Urine Negative (Negative); Ketones,Urine Negative (Negative); Leukocyte Esterase,Urine Positive (Negative); Nitrite,Urine Negative (Negative); Protein,Urine 1+ (Neg - Trace); RBC,Urine 4 /hpf (0-3); Specific Gravity,Urine 1.028 (1.001-1.035); Squamous Epithelial Cell,Urine 8 /hpf (0-5); WBC,Urine 7 /hpf (0-5)
--- NOTE | 2024-07-27 10:05 | CTCFLWUP_ITS ---
Patient: QUETA MONTENEGRO : 1965 Page 2 of 3 amyischFOLLOW UP NOTE DATE OF SERVICE: 07/26/2024 NAME: QUETA MONTENEGRO ACCOUNT: [id number] : 1965 AGE: 59 INTERVAL HISTORY: Patient doing well with lonsurf and shelli . she is taking Zofran for her nausea. ONCOLOGY HISTORY: DIAGNOSIS: Malignant neoplasm of rectum [ICD10] C20; Secondary malignant neoplasm of unspecified lung [ICD10] C78.00 Malignant neoplasm of rectum [ICD10] C20; Secondary malignant neoplasm of unspecified lung [ICD10] C78.00 DATE OF DIAGNOSIS: PATHOLOGY: STAGE/TNM: TREATMENT HISTORY: Care?Plan Start?Date Cycle Day Intent Bevacizumab?5mg/kg 06/07/2024 1 28 Maintenance Bevacizumab?7.5?mg/kg?-?Met 07/03/2020 1 21 Palliative FOLFIRI?+?Bevacizumab?5mg/kg 02/28/2020 1 14 Palliative 5FU?infu?avastin 02/17/2019 1 14 Palliative Rx?Capecitabine?+?Bevacizumab?7.5mg/kg 02/01/2018 1 21 Palliative FOLFIRI?+?Bevacizumab?10?mg/kg 07/14/2017 1 28 Definitive HISTORY OF PRESENT ILLNESS: 08/10/2009: Rectal mass biopsy showed moderately differentiated adenocarcinoma. K-laurence mutation not detected. No loss of expression of MMR proteins. She was treated with neoadjuvant chemoradiation at [place]. Following the surgery she was found to have T2N2 stage III disease. Postoperatively she was treated with adjuvant chemotherapy with FOLFOX. 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 06/08/2017: CT-guided biopsy of the lung mass showed metastatic carcinoma consistent with colorectal primary. Intact and and or expression. PDL 1 expression negative. Since last visit patient was seen at [facility] on the 10/07/2017. She had a CT scan of the chest abdomen pelvis with contrast done. CT scan showed a right upper lobe 14 x 11 mm and the right lower lobe 15 x 9 mm lesions. Both of these are smaller when compared to the previous scans. Patient is in the clinic today for follow-up. The recommendation Patient: QUETA MONTENEGRO : 1965 Page 2 of 10 from a [facility] physician is to continue current regimen of chemotherapy of full feeding and Avastin. Patient is clinically doing very well. Denies any cough chest pain abdominal pain or leg cramps. 11/09/2017: Patient is in the clinic today for follow-up. Since last visit I have discussed her case with Dr. Rusty Rangel of [facility]. She reviewed the CT scans with her cardiothoracic surgeon at [facility]. According to her patient is not a surgical candidate. 07/14/2017?12/23/2017: Patient was treated with 12 cycles of FOLFIRI plus Avastin. FOLFIRI chemotherapy was stopped due to significant nausea, vomiting as well as diarrhea. 02/01/2018: Patient was started on capecitabine and Avastin chemotherapy. 07/14/2018: CT scan of chest abdomen and pelvis at [facility]?status post low anterior resection tor treatment of a rectal malignancy. Stable pulmonary and pleural metastases. No evidence of metastatic disease in the abdomen or pelvis 02/17/2019: Patient was started on Capecitabine and Avastin again. 03/02/2019: Patient is started on 5-FU and Avastin. Capecitabine discontinued due to side effects 07/05/2019: Patient received last cycle of 5-FU and Avastin. 08/03/2019: CT scan of the chest abdomen and pelvis with contrast at [facility]? 10/04/2019?10/11/2019: Patient received 5400 cGy radiation to the right lung CTV 1 818 2019?9 02/2019: Patient received 5000 cGy radiation to right lung CTV 2. 10/27/2019?11/10/2019: Patient received 4000 cGy to the right lung CTV 3. 12/19/2019: CT scan of the chest with IV contrast? 01/15/2020: Patient had right-sided therapeutic thoracentesis. 1900 cc of dark red fluid was removed. Cytology showed metastatic adenocarcinoma consistent with colorectal primary. 01/26/2020: CT scan of the chest abdomen and pelvis with IV contrast? Patient: QUETA MONTENEGRO : 1965 Page 3 of 10 01/28/2020: PET CT scan? 02/28/2020: Patient received first cycle of dose reduced FOLFIRI with Avastin. 05/23/2020: CT scan of the chest abdomen and pelvis with IV contrast? 05/25/2020: PET CT scan? Patient: QUETA MONTENEGRO : 1965 Page 4 of 10 06/19/2020: Patient received last dose of FOLFIRI. 07/03/2020: Patient is started on capecitabine 1500 mg p.o. twice daily on a 2 weeks on and 1 week off regimen along with Avastin. 09/14/2020: CT scan of the chest abdomen and pelvis with IV contrast? 07/24/2020: CEA 3.4. 09/04/2020: CEA 5.3. 11/23/2020: CEA 2.3. 03/11/2021: CEA 4.2. 04/01/2021: CEA 5.3. 05/13/2021: CEA 8.9. 06/03/2021: CEA 9.9. 08/22/2021: CEA 8.8. 08/09/2021: CT scan of the chest abdomen and pelvis with IV contrast? Patient: QUETA MONTENEGRO : 1965 Page 5 of 11/18/2021: CEA 11.0. 01/02/2022: CT scan of the chest abdomen and pelvis with IV contrast? 04/15/2022: CEA 13.3. 10/08/2022: CEA 12.7. 04/06/2023: X-rays of the rib right side unilateral? 04/08/2023: Ultrasound of the right upper back 05/08/2023: PET/CT scan?the PET CT scan was compared to a PET CT scan done on December 09, [address] scan of the chest abdomen and pelvis done on November 03, 2022. Patient: QUETA MONTENEGRO : 1965 Page 6 of 10 06/23/2023: Ms. Montenegro had EBUS guided fine-needle aspiration of the mediastinal lymph node? 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 Align - As directed 2. amlodipine - 10 mg 1 tab Twice a Day 3. beclomethasone dipropionate - 40 mcg/actuation 1 Puff(s) 1 puff twice a day 4. CholestOff Complete - 300-100 mg 1 Capsule Daily 5. clonazePAM - 0.5 mg 1 tab Every day before sleep 6. Estroven - 155 mg Capsule Daily 7. famotidine - 40 mg 1 tab Daily 8. Fish Oil - 300 mg 1 Capsule Twice a Day 9. flaxseed oil - 1,000 mg 1 Capsule Three times a day 10. gabapentin - 100 mg 2 Capsule EVERY 6 - 8 HRS PRN NERVE PAIN 11. HYDROcodone-acetaminophen - 10-325 mg 1 tab As directed 12. hyoscyamine sulfate - 0.125 mg 1 - 2 tab q4 13. Imodium A-D - 2 mg 1 Capsule As directed 14. levothyroxine - 25 mcg 1 tab Daily 15. Lomotil - 2.5-0.025 mg 2 tab four times a day 16. Lonsurf - 20-8.19 mg 3 tab Daily 17. meloxicam - Daily 18. Metamucil - As directed 19. methylphenidate HCl - 5 mg 1 tab twice a day 20. metoprolol tartrate - 100 mg 1 tab Daily 21. nitrofurantoin macrocrystal - 100 mg 1 Capsule twice daily 22. ondansetron - 8 mg 1 tab 1 tab every 8 hrs as needed for nausea 23. ondansetron - 8 mg 1 tab As directed 24. Ritalin - 5 mg 1 tab 1 tab po twice a day 25. Trelegy Ellipta - 100-62.5-25 mcg 1 As directed 26. Tylenol Extra Strength - 500 mg 2 Capsule As needed 27. Ventolin HFA - 90 mcg/actuation 1 - 2 Puff(s) q4 28. Vitamin D3 - 5,000 unit 5,000 Units Daily 29. Zoloft - 50 mg 1 tab As directed Medications Last Reconciled by Cailin Jack MA on 07/26/2024 ALLERGIES: No Known Drug Allergies REVIEW OF SYSTEMS: A complete 14-point review of systems was performed and is negative except as noted in interval history. PHYSICAL EXAMINATION: VITAL SIGNS: Temperature?96.9, B/P?120/86, Oxygen?Saturation?98% Weight?146?lbs (Change?since?07/25/24:?-1.6?lbs) PAIN: 2 - Mild pain The patient appeared well-nourished, alert, and in no apparent distress via video conferencing. LABORATORY DATA: I have personally reviewed and interpreted each of the patient?s relevant lab tests, abnormal findings are below: Date 07/12/24 07/25/24 ??WHITE?BLOOD?COUNT?(Thou/mm3) 6.7 2.4?L ??RED?BLOOD?COUNT?(Miln/mm3) 4.20 3.54?L ??HEMOGLOBIN?(gm/dl) 13.2 11.0?L ??HEMATOCRIT?(%) 40.7 33.8?L ??PLATELET?COUNT?(Thou/mm3) 212 109?L ??NEUTROPHILS?%,?AUTO?(%) 77 75 ??LYMPH?%,?AUTO?(%) 15 21 ??NEUTROPHILS,?AUTO?(Thou/mm3) 5.2 1.8 ??GLUCOSE,RANDOM?(mg/dL) ? 125?H ??BLOOD?UREA?NITROGEN?(mg/dL) ? 14 ??CREATININE?(mg/dL) ? 0.70 ??SODIUM?(mmol/L) ? 143 ??POTASSIUM?(mmol/L) ? 3.8 ??CHLORIDE?(mmol/L) ? 109?H ??CrCl?(CandG)?(ml/min) ? 89.20 ??AST/SGOT?(Unit/L) ? 26 ??ALT/SGPT?(Unit/L) ? 32 ??ALKALINE?PHOSPHATASE?(Unit/L) ? 82 ??BILIRUBIN,?TOTAL?(mg/dL) ? 0.4 ??PROTEIN?TOTAL?(gm/dl) ? 5.7 ??ALBUMIN,?SERUM?(gm/dl) ? 3.9 ??GLOBULIN?(gm/dl) ? 1.8?L ??ALBUMIN/GLOBULIN?RATIO ? 2.2 ??CALCIUM,?SERUM?(mg/dL) ? 8.5 ??CALCIUM?SERUM?(CORRECTED)?(mg/dL) ? 8.6 ??CEA?(O*)?(ng/ml) ? 31.5?H ASSESSMENT/PLAN: Metastatic colon cancer Patient has been treated with chemoradiation. Patient received following treatment so far FOLFOX> IRI> FOLFIRI and Avastin> Avastin> Xeloda and Avastin Patient is currently on Xeloda and Avastin Patient have wild-type BRAF K-laurence PET CT scan as well as CT scans reviewed and have progression of disease Will refer to radiation for radiation to her lung upper lobe as well as ribs Will change chemotherapy to Lonsurf CBC CMP CEA Lonsurf chemotherapy, patient can continue bevacizumab and capecitabine for 1 more cycle while we get Lonsurf approved Biopsy of the growing rib lesion to see if patient is a candidate for targetable therapies PET CT scan shows disease limited to the lymph nodes in the chest Biopsy already completed will follow-up on the results at the next visit Patient is on Lonsurf and SHELLI and tolerating well ORDERS: Order # Description [id number] Infusion 2 Hours [id number] CBC + Comprehensive Metabolic Panel [id number] Lab Appointment [id number] Follow Up Appointment [id number] Infusion 2 Hours [id number] Infusion 2 Hours [id number] CBC + Comprehensive Metabolic Panel [id number] Lab Appointment [id number] Follow Up Appointment [id number] Infusion 2 Hours [id number] Infusion 2 Hours [id number] CBC + Comprehensive Metabolic Panel [id number] Lab Appointment [id number] Follow Up Appointment [id number] Infusion 2 Hours [id number] Infusion 2 Hours [id number] CBC + Comprehensive Metabolic Panel [id number] Lab Appointment [id number] Follow Up Appointment [id number] Infusion 2 Hours [id number] Infusion 2 Hours [id number] CBC + Comprehensive Metabolic Panel [id number] Lab Appointment [id number] Follow Up Appointment RETURN TO CLINIC: BILLING AND COMPLIANCE: I reviewed external records from providers outside my specialty as summarized above. I spent a total of 50 minutes on this patient?s care on the day of their visit excluding time spent related to any billed procedures. This time includes time spent with the patient as well as time spent documenting in the medical record, reviewing patients records and tests, obtaining history, placing orders, communicating with other healthcare professionals, counseling the patient, family or caregiver, and/or care coordination for the diagnoses above. Electronically Signed by: Kapil Mandujano MD T: 10:02 AM CC: Wojciech,? PCP: Gilbert Doyle Referring: Gilbert Doyle This document was completed utilizing speech recognition software. Grammatical errors, random word insertions, pronoun errors, and incomplete sentences are an occasional consequence of this system due to software limitations, ambient noise, and hardware issues. Any formal questions or concerns about the content, text or information contained within the body of this dictation should be directly addressed to the provider for clarification.
[2024-08-09 14:43] LABS: Collection Type, Urine Voided
[2024-08-09 14:46] LABS: Basophils % (Auto) 1 % (0-2.5); Eosinophils % (Auto) 0 % (0-10); Hematocrit 35.7 % (36.0-46.0); Hemoglobin 11.5 g/dL (12.0-16.0); Immature Granulocytes % (Auto) 0 % (0-0); Lymphocytes # (Auto) 0.8 Thou/mm3 (1.0-4.8); Lymphocytes % (Auto) 34 % (10-50); Mean Corpuscular HGB Conc 32.2 g/dl (31.0-37.0); Mean Corpuscular Hemoglobin 31.3 pg (25.0-35.0); Mean Corpuscular Volume 97 fL (80-100); Monocytes # (Auto) 0.4 Thou/mm3 (0.0-0.8); Monocytes % (Auto) 16 % (0-12); Neutrophils # (Auto) 1.1 Thou/mm3 (1.8-7.7); Neutrophils % (Auto) 49 % (37-80); Nucleated Red Blood Cell % 0 /100 WBC (0); Platelet Count 295 Thou/mm3 (140-440); RDW Standard Deviation 60.3 fL (36.4-46.3); Red Blood Count 3.67 Miln/mm3 (4.00-5.20)
[2024-08-09 14:48] LABS: Bilirubin,Urine Negative (Negative); Blood,Urine Negative (Negative); Clarity,Urine Clear (Clear/Hazy); Color,Urine Colorless (Lt Yel-Yel); Glucose, Urine Negative (Negative); Ketones,Urine Negative (Negative); Leukocyte Esterase,Urine Negative (Negative); Nitrite,Urine Negative (Negative); Protein,Urine Negative (Neg - Trace); RBC,Urine 1 /hpf (0-3); Specific Gravity,Urine 1.005 (1.001-1.035); Squamous Epithelial Cell,Urine 2 /hpf (0-5); Urobilinogen,Urine Negative mg/dL (0.0-1.0); WBC,Urine 1 /hpf (0-5)
[2024-08-09 14:59] LABS: White Blood Count 2.2 Thou/mm3 (3.6-11.0)
[2024-08-09 15:05] LABS: Alanine Aminotransferase 13 U/L (10-49); Albumin, Serum 4.1 gm/dL (3.4-4.8); Albumin/Globulin Ratio 2.1 (1.2-2.2); Alkaline Phosphatase 91 U/L (46-116); Anion Gap 8 (7-16); Aspartate Amino Transferase 20 U/L (0-34); BUN/Creatinine Ratio 13 Ratio (12-20); Bilirubin,Total 0.3 mg/dL (0.3-1.2); Blood Urea Nitrogen 10 mg/dL (9-23); Calcium 9.6 mg/dL (8.3-10.6); Calcium (Corrected) 9.6 mg/dL (8.5-10.1); Carbon Dioxide 29.1 mMol/L (20.0-31.0); Chloride 105 mMol/L (98-107); Creatinine (Component) 0.8 mg/dL (0.6-1.3); Glucose 100 mg/dL (74-106); Osmolality,Calculated 282 (275-295); Potassium 4.1 mMol/L (3.4-5.1); Sodium 142 mMol/L (136-145); Total Protein 6.1 gm/dL (5.7-8.2); eGFR > 60 See Note
[2024-08-09 15:08] LABS: Carcinoembryonic Antigen 26.7 ng/mL (0.0-5.0)
== END 2024-08-22 23:59 | disposition home or self-care (01) ==
LOC: SCTC 10:58
PROVIDERS: PCP Internal Medicine; Referring Provider Internal Medicine; Visit Provider Internal Medicine Hematology & Oncology
DX: Z51.11 Encounter for antineoplastic chemotherapy (principal); C20 Malignant neoplasm of rectum; C78.00 Secondary malignant neoplasm of unspecified lung; R11.0 Nausea
CPT/HCPCS: 36591; 80053; 81001; 82378; 85025; 96372; 96413; 99212; 99424; 99425; A4216; J1642; J2506; J7040; J7050; Q5107; G0463

== ENCOUNTER 2024-08-25 12:32 | Inpatient (IN) | payer MEDICARE, SELFPAY ==
[2024-08-25] VITALS (9 sets, daily range): BP systolic 100–135; BP diastolic 69–95; PULSE 120–140; RESP 18–98; TEMP 37.1–38.6; O2SAT 95–100; BMI 22.8; BMI 23.5; BMI 25.2
--- NOTE | 2024-08-25 12:52 | EKG_ITS ---
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
--- NOTE | 2024-08-25 12:53 | PD.EDRME ---
Rapid Medical Screening Exam RME Arrival date/time: 08/25/24 12:32 59-year-old female with a history of hypertension, colorectal cancer that has metastasized to the lungs and lymphs was sent to the emergency room by the cancer treatment center for fever and tachycardia. I have greeted and performed a focused initial assessment of this patient. A comprehensive ED assessment and evaluation of the patient, analysis of all test results, and completion of the medical decision making process will be conducted by additional ED providers. Chief Complaint: Fever Vital signs: Vital Signs Temperature 100.4 F 08/25/24 12:43 Pulse Rate 128 H 08/25/24 12:43 Respiratory Rate 18 08/25/24 12:43 Blood Pressure 100/69 08/25/24 12:43 Pulse Oximetry (%) 98 08/25/24 12:43 Oxygen Delivery Method Room Air 08/25/24 12:43 Vital signs reviewed by provider: Yes
--- NOTE | 2024-08-25 13:09 | PD.EDFEVER ---
ED Fever RME/HPI General Chief Complaint: Fever Stated Complaint: SENT BY [facility] FOR FEVER Time Seen by Provider: 08/25/24 13:04 Source: patient Arrival date/time: 08/25/24 12:32 Mode of arrival: ambulatory RME / HPI RME / HPI Narrative: 59-year-old female arrives today with fever. She has known colorectal cancer that has metastasized. She states she developed the fever 5 days ago and was admitted at a hospital in [place], [place]. She was found to be anemic and had neutropenia. She signed out AMA with a prescription of Levaquin that she did not start. She arrives here with a temperature of 100.4 F and a heart rate of 132. She is normotensive. Sepsis workup was initiated. She denies any cough or congestion. She has no new abdominal pain. She denies any vomiting or diarrhea. She has no changes in urination. She has no other acute complaints. MD complaint: fever and malaise Related Data Home Medications ?Medication ?Instructions ?Recorded ?Confirmed omeprazole 40 mg capsule,delayed 40 mg PO QDAY 07/07/17 01/12/23 release meloxicam 15 mg tablet 15 mg PO QDAY 01/15/20 01/12/23 sertraline 50 mg tablet (Zoloft) 50 mg PO QDAY 01/15/20 01/12/23 soy isoflavone-black cohosh 1 cap PO DAILY 01/15/20 01/12/23 root-magnolia bark 155 mg capsule (Estroven) amlodipine 5 mg tablet 5 mg PO HS 01/12/23 01/12/23 hydrocodone 7.5 mg-acetaminophen 1 tab PO Q6H PRN Pain 01/12/23 01/12/23 325 mg tablet Held on 01/12/23. Instructions: Resume on 01/13/23. lisinopril 20 mg tablet 20 mg PO HS 01/12/23 01/12/23 metoprolol succinate 100 mg 100 mg PO HS 01/12/23 01/12/23 tablet,extended release 24 hr Allergies Allergy/AdvReac Type Severity Reaction Status Date / Time No Known Allergies Allergy Verified 08/25/24 12:38 Course Quality Measures none Orders Category Date Time Status COVID-19 Screening Questionnaire NOW Care 08/25/24 14:41 Active Luggage Repairer STAT Care 08/25/24 12:52 Active Continuous Pulse Oximetry STAT Care 08/25/24 12:52 Active Decision to Admit X1 Care 08/25/24 14:41 Active EKG (ED ONLY) *Do not use* NOW Care 08/25/24 12:52 Completed Insert IV NOW Care 08/25/24 12:52 Active NPO STAT Care 08/25/24 12:52 Active Strict Intake and Output Routine Care 08/25/24 12:52 Ordered EKG (ED Only) Stat Exams 08/25/24 12:52 Draft XR chest 1V Stat Exams 08/25/24 14:21 Ordered B-Type Natriuretic Peptide Stat Lab 08/25/24 13:20 Completed Blood Culture (Lab) Stat Lab 08/25/24 13:20 Received CBC Stat Lab 08/25/24 13:20 Results COVID-19 Antigen (In-House) Stat Lab 08/25/24 Ordered Comprehensive Metabolic Panel Stat Lab 08/25/24 13:20 Completed Influenza A & B Rapid Panel Stat Lab 08/25/24 14:41 Ordered LDH (Lactate Dehydrogenase) Stat Lab 08/25/24 13:20 Completed Lactate (Lactic Acid) Stat Lab 08/25/24 13:20 Completed Lipase Stat Lab 08/25/24 13:20 Completed Magnesium Stat Lab 08/25/24 13:20 Completed Partial Thromboplastin Time Stat Lab 08/25/24 13:20 Completed Phosphorous Stat Lab 08/25/24 13:20 Completed Procalcitonin Stat Lab 08/25/24 13:20 Completed Prothrombin Time with INR Stat Lab 08/25/24 13:20 Completed Troponin I Stat Lab 08/25/24 13:20 Completed Type and Screen Stat Lab 08/25/24 13:20 Received Urinalysis Stat Lab 08/25/24 13:54 Received Urine Culture Stat Lab 08/25/24 13:54 Received Sodium Chloride 0.9% 1000 ml [Ns] 1,000 ml Med 08/25/24 13:05 Discontinued IV 999 mls/hr Sodium Chloride 0.9% 1000 ml [Ns] 1,779 ml Med 08/25/24 12:52 Discontinued IV 1,779 mls/hr cefTRIAXone/D5w 1gm IV premix [Rocephin/D5w 1gm IV Med 08/25/24 12:52 Discontinued premix] 1 gm in 50 ml IV X1 Vital Signs Vital signs: Vital Signs Temperature 100.4 F 07/03/25 12:43 Pulse Rate 128 H 08/25/24 12:43 Respiratory Rate 18 08/25/24 12:43 Blood Pressure 100/69 08/25/24 12:43 Pulse Oximetry (%) 98 08/25/24 12:43 Oxygen Delivery Method Room Air 08/25/24 12:43 Fever MDM Narrative MDM Narrative:: 59-year-old female arrives today with fever. She has known colorectal cancer that has metastasized. She states she developed the fever 5 days ago and was admitted at a hospital in [place], [place]. She was found to be anemic and had neutropenia. She signed out AMA with a prescription of Levaquin that she did not start. She arrives here with a temperature of 100.4 F and a heart rate of 132. She is normotensive. Sepsis workup was initiated. She denies any cough or congestion. She has no new abdominal pain. She denies any vomiting or diarrhea. She has no changes in urination. She has no other acute complaints. On exam, patient is anxious appearing. Vital signs are stable. We discussed her workup here. Patient has a low white count. Workup is otherwise unremarkable. She is given a dose of ceftriaxone. She states she had a CT of the chest, abdomen, and pelvis in [place] and without abnormalities. So this was not reordered in the emergency room although she may benefit from potential repeat studies. We discussed her test results. Patient was quite reluctant but did eventually agree to hospital admission. Case discussed with attending ER physician. Case discussed with our hospitalist team. Patient data External records reviewed:: None Clinical information provided by:: patient Social determinants that could affect healthcare access:: none Patient has the following chronic illnesses:: Metastatic cancer, hypertension, How is presenting disease/condition affected by chronic disease/condition?: exacerbated by Evaluation data The following diagnostics were reviewed and interpreted by me:: lab results Lab and/or radiology exams considered but not ordered:: CT of the chest, abdomen, and pelvis Interpretation Summary: She has not no leukocytosis. She has moderate anemia Medications / Prescriptions Medications or Prescriptions considered but not ordered:: n/a Medication administrations:: Medication Administration History Discontinued Medications Sodium Chloride (Ns) 1,779 mls @ 1,779 mls/hr 30 ml/kg infuse over 60 min (1779 ml) IV .Q1H ONE Stop: 08/25/24 13:51 Last Admin: 08/25/24 13:49 Dose: 1,779 mls/hr Documented By: EF Ceftriaxone Sodium/Dextrose (Rocephin/D5w 1gm Iv Premix) 1 gm in 50 mls @ 100 mls/hr IV X1 ONE Stop: 08/25/24 13:21 Last Admin: 08/25/24 13:50 Dose: 100 mls/hr Documented By: EF Sodium Chloride (Ns) 1,000 mls @ 999 mls/hr IV .Q1H1M ONE Stop: 08/25/24 14:05 See above Consultations Consultation(s) initiated? (list below): No Diagnosis Fever Differential Diagnosis: cellulitis, fever of unknown origin, gastroenteritis, community acquired pneumonia and viral infection Most likely diagnosis given after review of the tests above:: Fever unknown origin Admission Indicated Admission indicated?: indicated Admission Request Was there a request for admission?: Yes Admission Attestation Admission request attestation: Discussed case with [] from Hospitalist service regarding admission. Discussed patients ED course, exam findings, labs, and radiology results. The Hospitalist [agrees,declines] to accept the patient for admission. Disposition Plan Disposition Plan: Admit Discharge Plan Plan Patient Disposition: Admit Acute Care w/in Hospital Patient condition on transfer: Stable Prescriptions/Referrals Prescriptions/Med Rec: No Action omeprazole 40 mg Capsule,Delayed Release(Dr/Ec) 40 mg PO QDAY meloxicam 15 mg Tablet 15 mg PO QDAY sertraline [Zoloft] 50 mg Tablet 50 mg PO QDAY Estroven 155 mg Capsule 1 cap PO DAILY lisinopril 20 mg tablet 20 mg PO HS Patient Comments: TAKE 1 TABLET BY MOUTH TWICE A DAY metoprolol succinate 100 mg tablet extended release 24 hr 100 mg PO HS Patient Comments: TAKE 1 TABLET BY MOUTH EVERY DAY amlodipine 5 mg tablet 5 mg PO HS Patient Comments: TAKE 1 TABLET BY MOUTH TWICE A DAY hydrocodone-acetaminophen 7.5-325 mg tablet 1 tab PO Q6H PRN (Reason: Pain) Patient Comments: TAKE 1 TABLET BY MOUTH EVERY 6 HOURS NEEDED Referrals: Clayton Clement MD [Primary Care Provider] - In 1 week Problem List Clinical Impression: Fever of unknown origin Patient/Caregiver Discharge Instructions Print Language: Libyan Stand Alone Forms: [facility]ya Award Info., Patient Portal Info Letter
[2024-08-25 13:27] LABS: Lactate (Lactic Acid) 1.8 mMol/L (0.4-2.0)
[2024-08-25 13:30] LABS: Basophils # (Auto) 0.0 Thou/mm3 (0.0-0.2); Basophils % (Auto) 0 % (0-2.5); Eosinophils # (Auto) 0.0 Thou/mm3 (0.0-0.5); Eosinophils % (Auto) 3 % (0-10); Hematocrit 25.9 % (36.0-46.0); Immature Granulocytes Auto 0.00 Thou/mm3 (0.00-0.00); Lymphocytes # (Auto) 0.3 Thou/mm3 (1.0-4.8); Lymphocytes % (Auto) 71 % (10-50); Mean Corpuscular HGB Conc 33.2 g/dl (31.0-37.0); Mean Corpuscular Hemoglobin 31.5 pg (25.0-35.0); Mean Corpuscular Volume 95 fL (80-100); Monocytes # (Auto) 0.0 Thou/mm3 (0.0-0.8); Monocytes % (Auto) 11 % (0-12); Neutrophils # (Auto) 0.1 Thou/mm3 (1.8-7.7); Neutrophils % (Auto) 16 % (37-80); Nucleated Red Blood Cell # 0.00 Thou/mm3 (0.00-0.00); Nucleated Red Blood Cell % 0 /100 WBC (0); RDW Standard Deviation 53.1 fL (36.4-46.3); Red Blood Count 2.73 Miln/mm3 (4.00-5.20)
[2024-08-25 13:39] LABS: Hemoglobin 8.6 g/dL (12.0-16.0); Platelet Count 36 Thou/mm3 (140-440); White Blood Count < 0.4 Thou/mm3 (3.6-11.0)
[2024-08-25 13:45] LABS: INR 1.1 (0.9-1.3); Partial Thromboplastin Time 35.9 Seconds (22.0-36.0); Prothrombin Time 11.9 Seconds (9.0-12.2)
[2024-08-25] MEDS: SODIUM CHLORIDE 0.9% 1000 ML 1,779 ML 1779 ML IV (13:49)
[2024-08-25] MEDS: cefTRIAXone/D5w 1gm IV premix 1 GM/50 ML BAG IV (13:50)
[2024-08-25 13:52] LABS: B-Type Natriuretic Peptide 40 pg/mL (0-100)
[2024-08-25 14:01] LABS: Alanine Aminotransferase 26 U/L (10-49); Albumin, Serum 4.3 gm/dL (3.4-4.8); Albumin/Globulin Ratio 2.0 (1.2-2.2); Alkaline Phosphatase 91 U/L (46-116); Anion Gap 3 (7-16); Aspartate Amino Transferase 19 U/L (0-34); BUN/Creatinine Ratio 11 Ratio (12-20); Bilirubin,Total 0.5 mg/dL (0.3-1.2); Blood Urea Nitrogen 12 mg/dL (9-23); Calcium 9.3 mg/dL (8.3-10.6); Calcium (Corrected) 9.3 mg/dL (8.5-10.1); Carbon Dioxide 27.7 mMol/L (20.0-31.0); Chloride 107 mMol/L (98-107); Creatinine (Component) 1.1 mg/dL (0.6-1.3); Estimated Creatinine Clearance 50.3 mL/min (>60); Globulin 2.2 gm/dL (2.3-3.5); Glucose 133 mg/dL (74-106); LDH (Lactate Dehydrogenase) 141 U/L (120-246); Lipase 26 U/L (12-53); Magnesium 1.8 mg/dL (1.6-2.6); Osmolality,Calculated 277 (275-295); Phosphorous 2.2 mg/dL (2.4-5.1); Potassium 3.9 mMol/L (3.4-5.1); Procalcitonin 0.26 ng/ml (0.0-0.49); Sodium 138 mMol/L (136-145); Total Protein 6.5 gm/dL (5.7-8.2); Troponin I < 0.020 ng/mL (0.0-0.045); eGFR 57 See Note
[2024-08-25 14:08] LABS: Collection Type, Urine Clean Catch
[2024-08-25 14:18] LABS: Bilirubin,Urine Negative (Negative); Blood,Urine 1+ (Negative); Clarity,Urine Turbid (Clear/Hazy); Color,Urine Yellow (Lt Yel-Yel); Glucose, Urine Negative (Negative); Hyaline Casts,Urine 1 /hpf (0-1); Ketones,Urine Trace (Negative); Leukocyte Esterase,Urine Negative (Negative); Nitrite,Urine Negative (Negative); PH,Urine 6.0 (5.0-7.0); Protein,Urine 2+ (Neg - Trace); RBC,Urine 8 /hpf (0-3); Specific Gravity,Urine 1.026 (1.001-1.035); Squamous Epithelial Cell,Urine 12 /hpf (0-5); Urobilinogen,Urine Negative mg/dL (0.0-1.0); WBC,Urine 10 /hpf (0-5)
--- NOTE | 2024-08-25 14:21 | XR_ITS ---
Examination: PA chest single view TECHNIQUE: August 25, 2024 1437 hours Comparison May 16, 2022 INDICATIONS: Fever weakness today FINDINGS: Normal heart size Left subclavian Port-A-Cath tip SVC satisfactory position Stable right apical masslike area with apparent resection of posterior right second rib No interval pneumonia or pulmonary edema Prominent osteopenia IMPRESSION: No interval pneumonia or pulmonary edema
[2024-08-25 15:11] LABS: Slide Review Platelets confirmed
[2024-08-25 15:28] LABS: Path Review Blood Smear Sent to Pathologist
--- NOTE | 2024-08-25 17:23 | ESHP_ITS ---
<Statement entered by Daniel Turner MD - 08/28/24 15:00> I have discussed and was present for the essential components of the history, physical examination, diagnosis, and treatment plan with the resident. I agree with the patient's care as documented by the resident and amended herein by me. Daniel Turner MD FACP. <Statement entered by Nirmal Marroquin MD - 08/25/24 17:40> I discussed and supervised with the mba intern physician who took care of this patient. I personally saw and examined the patient. I agree with most of the assessment and plan. Disclaimer: Despite multiple revisions, due to the dictation software being used, the document bellow may not be free of grammatical errors including phonetic/typographic errors. However, this does not deter from our commitment to providing health care in the patient's best interest in mind. Plan of care discussed with attending Physician Dr. Johnny Marroquin MD PGY-3 Documentation for date of: 08/25/24 HPI History of Present Illness Chief complaint: Fever and chills in the setting of neutropenia. History of present illness: History of Present Illness: Patient is a 59-year-old female with metastatic colon cancer diagnosed in 2009, status post lower anterior resection with a temporary ileostomy (now reversed) and a left-sided port, presenting with neutropenic fever. She was recently hospitalized in [place] for neutropenic fever but left AMA to continue her cancer treatment locally. Her last chemotherapy session was on Thursday. She reports subjective chills and fever with Tmax of 100.7?F in [place] and 100.4?F on arrival here. She denies cough, sore throat, or runny nose. She reports lower abdominal pain and has not had a bowel movement in two days. She has a history of fissure and perianal pain for which she saw Dr. Alvarez and was prescribed an ointment. She also has visible oral mucositis and cold sores inside her lower lip but not currently being treated with acyclovir as HSV testing was negative. She denies dysuria, flank pain, diarrhea, joselin constipation, dyspnea, or rash. She was discharged from the [facility] on acyclovir and Levaquin for possible HSV; she took the acyclovir but did not take Levaquin. She has had prior episodes of neutropenic fever (May or June at [facility]). She is not on any home antibiotics now. She had been off metoprolol for about a week but has now been restarted on metoprolol in the hospital for tachycardia (HR 136). She has no known drug allergies. Review of Systems: * General: Positive for fever and chills. * HEENT: Positive for oral mucositis and cold sores. * Respiratory: Denies cough, sputum, or shortness of breath. * Cardiac: Denies chest pain. * GI: Lower abdominal pain, no BM x2 days, perianal pain. * : Denies dysuria or hematuria. * Skin: Denies new rashes or wounds. * Neuro: No headache or confusion. * All other systems reviewed and negative unless described above. Past Medical History: * Metastatic colon cancer (diagnosed 2009) * Prior neutropenic fever * Hypertension Past Surgical History: * Lower anterior resection (LAR) * Temporary ileostomy (now reversed) * Left chest port Allergies: * No known drug allergies (NKDA) Family History: * Noncontributory. Pertinent Labs/Studies: * WBC: <0.4 * ANC: 0.1 * Hgb: 8.6 * Platelets: 36 * CXR: Negative Exam Vital Signs Temp Pulse Resp BP Pulse Ox O2 Del Method 100.1 F 140 H 20 120/86 H 95 Room Air 08/25/24 17:17 08/25/24 17:17 08/25/24 17:17 08/25/24 17:17 08/25/24 17:17 08/25/24 17:17 Narrative Exam General: Cachectic 59-year-old female, mild shivering, chills present. HEENT: Mucositis with cold sores on lower inner lip. No cervical lymphadenopathy. Cardiac: Tachycardic at 136, regular rhythm. Respiratory: Clear to auscultation bilaterally. Abdomen: Soft with mild lower abdominal tenderness, no rebound or guarding. Skin: No rashes or wounds. Port site appears clean. Extremities: No edema, no signs of thrombosis. Neuro: Alert and oriented x3. Results: Labs 08/25/24 13:20 08/25/24 13:20 Labs: Short CBC 08/25/24 Range/Units 13:20 WBC < 0.4 L* (3.6-11.0) Thou/mm3 Hgb 8.6 L (12.0-16.0) g/dL Hct 25.9 L (36.0-46.0) % Plt Count 36 L (140-440) Thou/mm3 BMP 08/25/24 13:20 Sodium 138 Potassium 3.9 D Chloride 107 Carbon Dioxide 27.7 BUN 12 Creatinine 1.1 Glucose 133 H Calcium 9.3 Cardiac Enzymes 08/25/24 Range/Units 13:20 Troponin I < 0.020 (0.0-0.045) ng/mL Liver Function 08/25/24 Range/Units 13:20 Total Bilirubin 0.5 (0.3-1.2) mg/dL AST 19 (0-34) U/L ALT 26 (10-49) U/L Alkaline Phosphatase 91 (46-116) U/L Albumin 4.3 (3.4-4.8) gm/dL Urine 08/25/24 Range/Units 13:54 Urine Color Yellow (Lt Yel-Yel) Urine Clarity Turbid A (Clear/Hazy) Urine pH 6.0 (5.0-7.0) Ur Specific [place] 1.026 (1.001-1.035) Urine Protein 2+ A (Neg - Trace) Urine Glucose (UA) Negative (Negative) Quality Measures Quality Measures none Medications Home Medications and Allergies Home Medications ?Medication ?Instructions ?Recorded ?Confirmed ?Type omeprazole 40 mg capsule,delayed 40 mg PO QDAY 8 01/12/23 History release meloxicam 15 mg tablet 15 mg PO QDAY 01/15/2001/12 History sertraline 50 mg tablet (Zoloft) 50 mg PO QDAY 0 01/12/23 History soy isoflavone-black cohosh 1 cap PO DAILY 01/15/20 History root-magnolia bark 155 mg capsule (Estroven) amlodipine 5 mg tablet 5 mg PO HS 01/12/23 01/12/23 History hydrocodone 7.5 mg-acetaminophen 1 tab PO Q6H PRN Pain 01/12/23 01/12/23 History 325 mg tablet Held on 01/12/23. Instructions: Resume on 01/13/23. lisinopril 20 mg tablet 20 mg PO HS 01/12/23 3 History metoprolol succinate 100 mg 100 mg PO HS 01/12/23/ History tablet,extended release 24 hr Allergies Allergy/AdvReac Type Severity Reaction Status Date / Time No Known Allergies Allergy Verified 08/25/24 12:38 Visit Medications Acetaminophen (Acetaminophen 325 Mg Tablet) 650 mg PO Q6H PRN PRN Reason: Fever >101.5 Stop: 09/24/24 15:44 Acetaminophen (Acetaminophen 325 Mg Tablet) 650 mg PO Q6H PRN PRN Reason: PAIN SCALE 1-3 (mild Stop: 09/24/24 15:44 Benzocaine (Benzocaine Gel 10% 5.3 Gm Tube) 0 gm TOP QID PRN PRN Reason: mouth sores Stop: 09/24/24 15:57 Cefepime HCl 2 gm/ Sodium (Chloride) 50 mls @ 100 mls/hr IV Q12HR DARLINE Stop: 09/01/24 20:59 Magnesium Sulfate (Magnesium Sulfate Ivpb) 2 gm in 50 mls @ 25 mls/hr IV X1 ONE Stop: 08/25/24 17:55 Vancomycin/Sodium Chloride (Vancomycin/Ns 1 Gm Ivpb) 200 mls @ 200 mls/hr IV Q24H DARLINE Stop: 09/02/24 16:29 Vancomycin HCl 1,500 mg/ (Sodium Chloride) 500 mls @ 250 mls/hr IV X1 ONE Stop: 08/25/24 18:44 Metoprolol Succinate (Metoprolol Succinate Xl 25 Mg Tabcr) 100 mg PO HS [facility] Stop: 09/24/24 20:59 Ondansetron HCl (Ondansetron Inj 2 Mg/Ml Inj 2 Ml) 4 mg IVP Q6H PRN; Protocol PRN Reason: NAUSEA OR VOMITING Stop: 09/24/24 15:44 Oxycodone/Acetaminophen (Oxycodone/Apap 5/325 Tablet) 1 tab PO Q6H PRN PRN Reason: Pain Scale 4-10 Stop: 08/30/24 15:44 Pharmacy Consult (Vancomycin Pharmacy To Dose 1 Each Each) 1 each IV QDAY PRN PRN Reason: RX Stop: 09/24/24 15:59 Pharmacy Consult (Pharmacy Renal Dose Adjustment 1 Ea) 1 each XX PRN PRN PRN Reason: CONSULT Stop: 09/24/24 15:56 Sennosides (Senna Tablet) 1 tab PO QDAY PRN; Protocol PRN Reason: CONSTIPATION Stop: 09/24/24 15:57 Discontinued Medications Sodium Chloride (Ns) 1,779 mls @ 1,779 mls/hr 30 ml/kg infuse over 60 min (1779 ml) IV .Q1H ONE Stop: 08/25/24 13:51 Last Infusion: 08/25/24 14:49 Dose: Infused Ceftriaxone Sodium/Dextrose (Rocephin/D5w 1gm Iv Premix) 1 gm in 50 mls @ 100 mls/hr IV X1 ONE Stop: 08/25/24 13:21 Last Infusion: 08/25/24 14:20 Dose: Infused Sodium Chloride (Ns) 1,000 mls @ 999 mls/hr IV .Q1H1M ONE Stop: 08/25/24 14:05 Last Admin: 08/25/24 17:09 Dose: Not Given Vancomycin HCl 1,500 mg/ (Sodium Chloride) 500 mls @ 250 mls/hr IV NOW DARLINE Stop: 08/25/24 18:14 Potassium Phos/Sodium Phos (Naph,[facility] Mbdb 1 Packet (1.5 Gm)) 1 packet PO X1 ONE Stop: 08/25/24 15:57 Assessment & Plan Plan 59-year-old female with metastatic colon cancer on recent chemotherapy, presenting with febrile neutropenia. # Neutropenic Fever: -ANC <500 with fever time 5 days . Plan: -Receiving empiric IV cefepime + vancomycin. -Blood cultures and urine culture obtained. -CXR negative. -Per Dr. Mandujano, filgrastim initiated today to promote neutrophil recovery. -Strict neutropenic precautions. -Monitor for signs of hemodynamic instability or sepsis. #Mucositis: -Supportive mouth care only. -Oral mucositis noted but HSV ruled out; not on acyclovir. #Abdominal Pain: -Likely multifactorial: chemo-related constipation vs cancer vsfissure pain -Consider CT if worsens -Gentle bowel regimen if no contraindications. #Anemia/Thrombocytopenia: -Hgb 8.6 ? monitor, transfuse if hemoglobin drops below 7. -Plt 36 ? monitor for bleeding, transfuse if indicated. # Hypertension/Tachycardia: -Metoprolol restarted for rate control (HR 136). -Monitor BP and HR response. # Metastatic Colon Cancer: -Patient under the care of Dr. Mandujano who is aware of admission and treatment plan. -Dr. Mandujano managing ongoing chemotherapy and overall oncologic plan. -Will coordinate further oncologic care and next chemo cycle with her. Health Maintenance: Lines: Port (left chest) Diet: Regular Bowel: Senna as needed GI prophylaxis: Not needed DVT prophylaxis: SCD Dispo: await neutrophil recovery, continue cultures, coordinate with oncology for discharge plan Code: Full ----- Plan discussed with attending physician Dr. Johnny Cordon MD PGY-1 Internal Medicine
[2024-08-25] MEDS: Magnesium Sulfate 2 GM Ivpb 2 GM/50 ML BAG IV (17:33)
[2024-08-25] MEDS: NAPH,KPH MBDB 1 PACKET (1.5 GM) PO (18:53)
[2024-08-25] MEDS: FILGRASTIM INJ (ZARXIO) 300 MCG/0.5 ML SYRINGE SC (18:53)
[2024-08-25] MEDS: CEFEPIME INJ 2 GM in SODIUM CHLORIDE 0.9% (Popper) 50 ML IV (20:44)
[2024-08-25] MEDS: METOPROLOL SUCCINATE XL 25 MG TABCR 100 MG PO (20:44)
[2024-08-25] MEDS: DOXYCYCLINE INJ 100 MG in SODIUM CHLORIDE 0.9% (POP) 100 ML IV (20:45)
--- NOTE | 2024-08-25 22:45 | PC.NURSE ---
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 Upon assessment, patient stated, ?I have colorectal cancer, and it?s painful when I have bowel movements,? and reported experiencing new onset diarrhea with frequent need to ambulate to the restroom. Patient's heart rate remained elevated during movement but returned to the 120s when resting in bed, stating, ?This is my normal, my heart rate goes up because of the pain.? Patient denied chest pain, dizziness, or other associated symptoms. She was alert and oriented ?4, with no signs of altered mental status. Patient verbalized her DNR status and stated she does not want a Rapid Response Team (FOREPART RASPER) called for elevated heart rate. Dr. Lyles notified of the patient?s condition and statements. New orders received for STAT EKG, Rawlings 10 mg PO, Gabapentin 200 mg PO, and 250 mL Normal Saline IV bolus administered as ordered. Patient was educated that while she may decline treatment, she cannot refuse FOREPART RASPER activation if clinically indicated. Patient verbalized understanding. New order received to transfer patient to a higher level of care.
--- NOTE | 2024-08-25 22:50 | PC.NURSE ---
Received a call from Ella ICU nurse and informed me of patient's HR sustaining in the 160's- 170's and that pt does not want CLOTHING PATTERN PREPARER called according to pt's nurse Will. Upon checking on the pt while talking to Ella on the phone, noticed that pt is returning to bed from the restroom. Pt's HR is 120's-130's upon resting. Pt is asymptomatic and stated I do that all the time, pls don't call CLOTHING PATTERN PREPARER . 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 Pt explained that she goes to the bathroom almost every 15 to 20 min and that would be a lot of CLOTHING PATTERN PREPARER's. Instructed Will RN to call and inform MD of pt's request.
--- NOTE | 2024-08-25 23:20 | EVENTNT_ITS ---
<Statement entered by Keo Allan MD - 08/25/24 23:38> I was present for the following interaction and agree with the document. Keo Allan DO PGY-2 Internal Medicine - GME Documentation for date of: 08/25/24 Event Note Event Note: Patient was visited by me and Dr Allan after we were made aware around 11:00 PM that she would like to be made DNR DNI from being full code. She had a photo of a form on her phone showing that she wanted to be DNR DNI so patient's code status has been changed to be aligned with her request. Patient has been asked if she can have somebody bring in the form so that the hospital may have it for recording purposes. She understands what DNR DNI is and is alert and oriented and answering questions appropriately. -Pollo Rutledge DO, PGY-1
[2024-08-26] VITALS (13 sets, daily range): BP systolic 98–116; BP diastolic 57–88; PULSE 70–136; RESP 14–19; TEMP 36.1–38.6; O2SAT 95–99
[2024-08-26] MEDS: GABAPENTIN 100 MG CAPSULE 200 MG PO ×4 (00:16→21:51)
[2024-08-26] MEDS: SODIUM CHLORIDE 0.9% 250 ML 250 ML 999 ML IV (00:56)
[2024-08-26] MEDS: LOPERAMIDE 2 MG CAPSULE 4 MG PO (01:01)
[2024-08-26] MEDS: METOPROLOL TARTRATE INJ 1 MG/ML AMP 5 ML 10 MG IVP (01:17)
[2024-08-26 08:25] LABS: Basophils # (Auto) 0.0 Thou/mm3 (0.0-0.2); Basophils % (Auto) 0 % (0-2.5); Eosinophils # (Auto) 0.0 Thou/mm3 (0.0-0.5); Eosinophils % (Auto) 2 % (0-10); Hematocrit 22.5 % (36.0-46.0); Immature Granulocytes Auto 0.00 Thou/mm3 (0.00-0.00); Lymphocytes # (Auto) 0.3 Thou/mm3 (1.0-4.8); Lymphocytes % (Auto) 71 % (10-50); Mean Corpuscular HGB Conc 32.9 g/dl (31.0-37.0); Mean Corpuscular Hemoglobin 31.5 pg (25.0-35.0); Mean Corpuscular Volume 96 fL (80-100); Monocytes # (Auto) 0.0 Thou/mm3 (0.0-0.8); Monocytes % (Auto) 9 % (0-12); Neutrophils # (Auto) 0.1 Thou/mm3 (1.8-7.7); Neutrophils % (Auto) 18 % (37-80); Nucleated Red Blood Cell # 0.00 Thou/mm3 (0.00-0.00); Nucleated Red Blood Cell % 0 /100 WBC (0); RDW Standard Deviation 52.6 fL (36.4-46.3); Red Blood Count 2.35 Miln/mm3 (4.00-5.20)
[2024-08-26] MEDS: CEFEPIME INJ 2 GM in SODIUM CHLORIDE 0.9% (Popper) 50 ML IV ×2 (08:37→20:37)
[2024-08-26] MEDS: DOXYCYCLINE INJ 100 MG in SODIUM CHLORIDE 0.9% (POP) 100 ML IV ×2 (08:40→21:51)
[2024-08-26] MEDS: SERTRALINE HCL 25 MG TABLET 50 MG PO ×2 (08:40→20:38)
[2024-08-26 08:45] LABS: Alanine Aminotransferase 25 U/L (10-49); Albumin, Serum 3.6 gm/dL (3.4-4.8); Albumin/Globulin Ratio 1.9 (1.2-2.2); Alkaline Phosphatase 75 U/L (46-116); Anion Gap 9 (7-16); Aspartate Amino Transferase 21 U/L (0-34); BUN/Creatinine Ratio 17 Ratio (12-20); Bilirubin,Total 0.4 mg/dL (0.3-1.2); Blood Urea Nitrogen 10 mg/dL (9-23); Calcium 8.3 mg/dL (8.3-10.6); Calcium (Corrected) 8.6 mg/dL (8.5-10.1); Carbon Dioxide 25.5 mMol/L (20.0-31.0); Chloride 108 mMol/L (98-107); Creatinine (Component) 0.6 mg/dL (0.6-1.3); Estimated Creatinine Clearance 92.6 mL/min (>60); Globulin 1.9 gm/dL (2.3-3.5); Glucose 100 mg/dL (74-106); Magnesium 2.1 mg/dL (1.6-2.6); Osmolality,Calculated 282 (275-295); Phosphorous 2.7 mg/dL (2.4-5.1); Potassium 3.9 mMol/L (3.4-5.1); Sodium 142 mMol/L (136-145); Thyroid Stimulating Hormone 2.25 uIU/mL (0.55-4.78); Total Protein 5.5 gm/dL (5.7-8.2); eGFR > 60 See Note
[2024-08-26 08:49] LABS: INR 1.1 (0.9-1.3); Partial Thromboplastin Time 37.9 Seconds (22.0-36.0); Prothrombin Time 12.0 Seconds (9.0-12.2)
[2024-08-26 08:52] LABS: Hemoglobin 7.4 g/dL (12.0-16.0); Platelet Count 33 Thou/mm3 (140-440); White Blood Count 0.5 Thou/mm3 (3.6-11.0)
[2024-08-26 08:54] LABS: Slide Review Platelets confirmed
--- NOTE | 2024-08-26 11:03 | XR_ITS ---
Examination: CT chest with intravenous contrast CT abdomen with intravenous contrast CT pelvis with intravenous contrast 2-D coronal and sagittal reconstructions Time of exam: August 26, 2024, 1211 hrs. Comparison January 02, 2022 Indications: Diagnosis rectal carcinoma with fevers today CTDI: vol (mGy) : 15.9 DLP: (mGycm): 620 Technique: Multiple axial images of the chest, abdomen and pelvis with intravenous contrast, 3.0 mm slice thickness. Images obtained post intravenous injection Isovue 370 60 cc. 2-D sagittal and coronal reconstructions. Low dose protocols were performed. One or more of the following dose reduction techniques were used; automated exposure control, adjustment of the mA and/or KV according to patient size, use of iterative reconstruction technique. Findings: Interval soft tissue tumor mass at the right apex, 5 x 6 cm destroying the posterior right second third ribs, this mass is invading the mediastinum extending to the right tracheobronchial prince complex and extending to the right hilar region No thoracic aortic aneurysm dilatation Main pulmonary artery segment 35 mm Soft tissue tumor mass in the right hemithorax, at least 31 x 34 mm, No visualized liver or splenic lesion Gallbladder wall is thickened, axial image 191 Aorta normal size No bowel obstruction Subcentimeter periaortic lymph nodes Thickening the rectal wall Mild free fluid in the pelvis Mild thickening of urinary bladder wall Severe osteopenia Impression: 5 x 6 cm soft tissue metastatic tumor mass destroying the posterior right second, third, RIBS, the mass extending into the mediastinum with right hilar metastatic lymphadenopathy 31 x 34 mm soft tissue tumor mass in the medial lower right hemithorax Recommend hepatobiliary sonography follow-up to confirm acute cholecystitis
--- NOTE | 2024-08-26 11:20 | PC.SS ---
Antonietta Moser is a 50-year-old female admitted to [facility] for Neutropenic Fever. SS conducted bedside contact with the patient to complete initial assessment and to discuss discharge planning, utilizing all necessary precautions. Role and reason explained. Patient confirmed demographic information. Patient lives alone, identifies daughter Autumn Kidd [phone] as her surrogate decision maker. Pt states she is able to complete all ADL?s independently. No need for any source of DME. Pts PCP is Gilbert Johnson, pt Oncologist is Dr. Mandujano at [facility]. [facility] of choice [facility]. Discharge options discussed and the pt wishes to return home.? Family will provide transportation upon DC. No further intervention required at this time, oncology social work would be available to address any further concerns. DC Plan: Home Contact: Dtr, Address: Confirmed on face sheet PCP: Urbano
--- NOTE | 2024-08-26 11:30 | PC.SS ---
Rounding: Pending cultures, DC plan home when stable
[2024-08-26 13:50] LABS: Cocci Serology, IgM Negative (Negative)
[2024-08-26] MEDS: FILGRASTIM INJ (ZARXIO) 300 MCG/0.5 ML SYRINGE SC (15:58)
[2024-08-26] MEDS: MICAFUNGIN SODIUM INJ 100 MG in SODIUM CHLORIDE 0.9% 100 ML IV (15:59)
--- NOTE | 2024-08-26 16:01 | PC.NURSE ---
Zarxio subq given at this time due to just received from pharmacy.--Ja
[2024-08-26] MEDS: ACETAMINOPHEN 325 MG TABLET 650 MG PO (16:17)
--- NOTE | 2024-08-26 17:05 | PC.NURSE ---
norco given. rechecked temp after tylenol 650 given earlier. Temp is 101.0 Applied cooking measures. Fan on, blanket off, and applied wash cloth to forehead. will continue to monitor.
--- NOTE | 2024-08-26 18:17 | ESPR_ITS ---
Documentation for date of: 08/26/24 Subjective Subjective Interval history: Patient seen at bedside this morning, resting comfortably, alert and oriented. She continues to insist on DNR/DNI status. She denies chest pain, palpitations, or dizziness. Diarrhea has resolved but she still reports pain with BMs due to her fissure. Mouth sores continue to bother her significantly and she is struggling to eat; we have switched her to magic mouthwash. She continues to report chronic back pain related to her cancer but states she feels generally stable otherwise. She is drinking fluids well. Exam Vital Signs Temp Pulse Resp BP Pulse Ox O2 Del Method 101.4 F H 84 17 100/57 L 99 Room Air 08/26/24 16:17 08/26/24 16:00 08/26/24 16:00 08/26/24 16:00 08/26/24 16:00 08/26/24 16:00 Narrative Exam General: Cachectic 59-year-old female, mild shivering, chills present. HEENT: Mucositis with cold sores on lower inner lip. No cervical lymphadenopathy. Cardiac: regular rate, regular rhythm. Respiratory: Clear to auscultation bilaterally. Abdomen: Soft with mild lower abdominal tenderness, no rebound or guarding. Skin: No rashes or wounds. Port site appears clean. Extremities: No edema, no signs of thrombosis. Neuro: Alert and oriented x3. Objective Labs 08/28/24 05:41 08/28/24 05:41 Labs: Laboratory Results - last 24 hr 08/26/24 08/26/24 08:00 11:30 WBC 0.5 L* RBC 2.35 L Hgb 7.4 L Hct 22.5 L MCV 96 MCH 31.5 MCHC 32.9 RDW Std Deviation 52.6 H Plt Count 33 L Neut % (Auto) 18 L Lymph % (Auto) 71 H [place] % (Auto) 9 Eos % (Auto) 2 Baso % (Auto) 0 Neut # (Auto) 0.1 L Lymph # (Auto) 0.3 L [place] # (Auto) 0.0 Eos # (Auto) 0.0 Baso # (Auto) 0.0 Immature Gran # (Auto) 0.00 Absolute Nucleated RBC 0.00 Immature Gran % 0 Nucleated RBC % 0 PT 12.0 INR 1.1 APTT 37.9 H Sodium 142 Potassium 3.9 Chloride 108 H Carbon Dioxide 25.5 Anion Gap 9 BUN 10 Creatinine 0.6 D Estim Creat Clear Calc 92.6 eGFR > 60 BUN/Creatinine Ratio 17 Glucose 100 Calculated Osmolality 282 Calcium 8.3 Corrected Calcium 8.6 Phosphorus 2.7 Magnesium 2.1 Total Bilirubin 0.4 AST 21 ALT 25 Alkaline Phosphatase 75 Total Protein 5.5 L Albumin 3.6 D Globulin 1.9 L Albumin/Globulin Ratio 1.9 TSH 2.25 Coccidioides IgM Ab Negative Misc Test Result Platelets confirmed Quality Measures Quality Measures none Assessment & Plan Assessment Current Active Medications: Generic Name Dose Route Start Last Admin Trade Name Freq PRN Reason Stop Dose Admin Acetaminophen 650 mg 08/25/24 15:45 08/26/24 16:17 Acetaminophen 325 Mg Tablet PO 09/24/24 15:44 650 mg Q6H PRN Administration Fever >101.5 Acetaminophen 650 mg 08/25/24 15:45 Acetaminophen 325 Mg Tablet PO 09/24/24 15:44 Q6H PRN PAIN SCALE 1-3 (mild Hydrocodone Bitart/Acetaminophen 1 tab 08/25/24 23:16 08/26/24 17:03 Hydrocodone/Apap 10/325 Tab PO 08/30/24 23:15 1 tab Q8H PRN Administration pain (scale score 7-10) Acyclovir 800 mg 08/26/24 22:00 Acyclovir 800 Mg Tablet PO 09/02/24 21:59 TID DARLINE Benzocaine 0 gm 08/25/24 15:58 Benzocaine Gel 10% 5.3 Gm Tube TOP 09/24/24 15:57 QID PRN mouth sores Lidocaine HCl 10 ml/ 0 ml 08/26/24 21:00 Diphenhydramine HCl 25 mg/ Al PO 09/02/24 20:59 Hydrox/Mg Hydrox/Simethicone BID DARLINE 30 ml/ Nystatin 10 ml Filgrastim 300 mcg 08/26/24 14:30 08/26/24 15:58 Filgrastim Inj (Zarxio) 300 Mcg/0.5 Ml Syringe SC 08/29/24 14:29 300 mcg QDAY DARLINE Administration Gabapentin 200 mg 08/26/24 06:00 08/26/24 14:02 Gabapentin 100 Mg Capsule PO 09/25/24 05:59 200 mg TID DARLINE Administration Cefepime HCl 2 gm/ Sodium 50 mls @ 100 mls/hr 08/25/24 21:00 08/26/24 08:37 Chloride IV 09/01/24 20:59 100 mls/hr Q12HR DARLINE Administration Doxycycline Hyclate 100 mg/ 100 mls @ 100 mls/hr 08/25/24 21:00 08/26/24 08:40 Sodium Chloride IV 09/01/24 20:59 100 mls/hr BID DARLINE Administration Micafungin Sodium 100 mg/ 100 mls @ 100 mls/hr 08/26/24 14:32 08/26/24 15:59 Sodium Chloride IV 09/10/24 14:31 100 mls/hr QDAY DARLINE Administration Metoprolol Succinate 100 mg 08/25/24 21:00 08/25/24 20:44 Metoprolol Succinate Xl 25 Mg Tabcr PO 09/24/24 20:59 100 mg HS DARLINE Administration Ondansetron HCl 4 mg 08/25/24 15:45 Ondansetron Inj 2 Mg/Ml Inj 2 Ml IVP 09/24/24 15:44 Q6H PRN NAUSEA OR VOMITING Protocol Pharmacy Consult 1 each 08/25/24 15:57 Pharmacy Renal Dose Adjustment 1 Ea XX 09/24/24 15:56 PRN PRN CONSULT Sennosides 1 tab 08/25/24 15:58 Senna Tablet PO 09/24/24 15:57 QDAY PRN CONSTIPATION Protocol Sertraline HCl 50 mg 08/26/24 21:00 Sertraline Hcl 25 Mg Tablet PO 09/25/24 08:59 HS DARLINE Plan 59F with metastatic colon cancer on chemo admitted with persistent neutropenic fever (WBC 0.5, Hgb 7.4), mucositis, Afib overnight, started on micafungin and acyclovir, fungal cultures and CT chest/abdomen/pelvis ordered, ID consulted, remains DNR/DNI. # Neutropenic Fever: * Persistent neutropenia (WBC 0.5) ? filgrastim ongoing for 5 days (2/5 complete). * Continue IV cefepime + vancomycin. * Added micafungin for possible fungal coverage given persistent fever and mucositis. * Blood cultures for fungus, Aspergillus ordered. * CT chest/abdomen/pelvis with contrast ordered to evaluate for occult source. * Infectious Disease consulted, following. * Strict neutropenic precautions. # Mucositis / HSV: * Persistent painful mucositis, poor PO intake. * Acyclovir restarted given concern for possible HSV reactivation. * Using magic mouthwash for symptom relief. #Diarrhea / Fissure: * Diarrhea resolved, C. diff pending. * Fissure pain persists with BMs * Monitor for recurrence. #Afib: * Afib noted overnight, rate-controlled with metoprolol. * Monitor HR and BP closely. * Check electrolytes daily. #Anemia/Thrombocytopenia: * Hgb dropped to 7.4 ? monitor closely, transfuse PRBCs if symptomatic or Hgb <7. * Monitor platelets daily ? transfuse if indicated. #Metastatic Colon Cancer: * Dr. Mandujano aware and following for chemo plan. * ID on board for infectious complications. #Pain: * Chronic back pain due to cancer. * Reassess pain control and adjust meds as needed. Disposition: * Lines: Port (left chest) * Diet: Regular * Bowel: Senna PRN * GI Prophylaxis: Not needed * DVT Prophylaxis: SCDs in place * Dispo: Await cultures, CT results, follow ID recommendations * Code: DNR/DNI per patient?s confirmed request ----- Plan discussed with attending physician Dr. Ana Cordon MD PGY-1 Internal Medicine Attending Provider Attestation/Addendum Meño, Gia Perez DO, attest that I was physically present for the ied portions of the service and evaluated the patient with the resident and I reviewed and discussed the case with the resident and agree with the resident's findings and plans of care as documented above Patient seen and evaluated this AM. Patient had left against medical advice at [facility] in since she was away from home and her doctors. Patient was readmitted yesterday due to persistent fevers. Patient had thorough workup at [facility] that was reportedly negative and sent with levaquin and acyclovir. Patient complains of rectal pain described as knives cutting when she has a BM. SHe had seen GI outpatient and diagnosed with anal fissure and given topical analgesic that gives mild relief. 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 Patient has been taking her acyclovir at home. She provided pictures of the lesions on the day of admission at [facility] and a picture from last night which shows complete resolution of lesions. No crusting or scabbing noted. She did have diarrhea and abdominal pain yesterday that has since resolved. C.diff and stool studies were sent. Will obtain chest/ abdomen and pelvis CT to rule out abscess and other sources of infection. ANC today is 5. Patient received one dose of filgrastim. Will f/u with oncology recommendations regarding continued dosing. Will request outside records for recent admission. Patient also states that she has had her imaging done at [facility] that also gets reviewed at [place]. Patient otherwise is in no acute distress and on room air. She is well appearing. She denies any nausea or vomiting otherwise. No other skin lesions noted. Lungs are CTAB/L.
[2024-08-26 18:25] LABS: Clostridium Difficile PCR Negative (Negative)
[2024-08-26] MEDS: METOPROLOL SUCCINATE XL 25 MG TABCR 100 MG PO (20:38)
[2024-08-26] MEDS: LIDOCAINE 2% VISCOUS 10 ML, DiphenhydrAMINE 25 MG, MG HYD/AL HYD/SIME SUSP 30 ML, NYSTA... PO (20:47)
[2024-08-26] MEDS: ACYCLOVIR 800 MG TABLET PO (21:51)
[2024-08-27] VITALS (8 sets, daily range): BP systolic 118–132; BP diastolic 72–98; PULSE 60–117; RESP 18–97; TEMP 36.9–37.7; O2SAT 97–99
[2024-08-27] MEDS: GABAPENTIN 100 MG CAPSULE 200 MG PO ×3 (05:36→21:59)
[2024-08-27] MEDS: ACYCLOVIR 800 MG TABLET PO ×3 (05:36→21:59)
[2024-08-27 06:07] LABS: Basophils # (Auto) 0.0 Thou/mm3 (0.0-0.2); Basophils % (Auto) 0 % (0-2.5); Eosinophils # (Auto) 0.0 Thou/mm3 (0.0-0.5); Eosinophils % (Auto) 2 % (0-10); Hematocrit 21.6 % (36.0-46.0); Immature Granulocytes Auto 0.00 Thou/mm3 (0.00-0.00); Lymphocytes # (Auto) 0.3 Thou/mm3 (1.0-4.8); Lymphocytes % (Auto) 57 % (10-50); Mean Corpuscular HGB Conc 32.9 g/dl (31.0-37.0); Mean Corpuscular Hemoglobin 31.3 pg (25.0-35.0); Mean Corpuscular Volume 95 fL (80-100); Monocytes # (Auto) 0.1 Thou/mm3 (0.0-0.8); Monocytes % (Auto) 14 % (0-12); Neutrophils # (Auto) 0.1 Thou/mm3 (1.8-7.7); Neutrophils % (Auto) 27 % (37-80); Nucleated Red Blood Cell # 0.00 Thou/mm3 (0.00-0.00); Nucleated Red Blood Cell % 0 /100 WBC (0); RDW Standard Deviation 53.4 fL (36.4-46.3); Red Blood Count 2.27 Miln/mm3 (4.00-5.20)
[2024-08-27 06:14] LABS: Hemoglobin 7.1 g/dL (12.0-16.0); Platelet Count 39 Thou/mm3 (140-440); White Blood Count 0.5 Thou/mm3 (3.6-11.0)
[2024-08-27 06:25] LABS: Slide Review Platelets confirmed
[2024-08-27 06:43] LABS: Alanine Aminotransferase 21 U/L (10-49); Albumin, Serum 3.6 gm/dL (3.4-4.8); Albumin/Globulin Ratio 1.9 (1.2-2.2); Alkaline Phosphatase 72 U/L (46-116); Anion Gap 14 (7-16); Aspartate Amino Transferase 17 U/L (0-34); BUN/Creatinine Ratio 13 Ratio (12-20); Bilirubin,Total 0.4 mg/dL (0.3-1.2); Blood Urea Nitrogen 8 mg/dL (9-23); Calcium 8.4 mg/dL (8.3-10.6); Calcium (Corrected) 8.7 mg/dL (8.5-10.1); Carbon Dioxide 22.3 mMol/L (20.0-31.0); Chloride 107 mMol/L (98-107); Creatinine (Component) 0.6 mg/dL (0.6-1.3); Estimated Creatinine Clearance 92.6 mL/min (>60); Globulin 1.9 gm/dL (2.3-3.5); Glucose 106 mg/dL (74-106); Magnesium 1.7 mg/dL (1.6-2.6); Osmolality,Calculated 283 (275-295); Phosphorous 2.3 mg/dL (2.4-5.1); Potassium 3.5 mMol/L (3.4-5.1); Sodium 143 mMol/L (136-145); Total Protein 5.5 gm/dL (5.7-8.2); eGFR > 60 See Note
[2024-08-27] MEDS: CEFEPIME INJ 2 GM in SODIUM CHLORIDE 0.9% (Popper) 50 ML IV ×2 (08:54→20:55)
[2024-08-27] MEDS: DOXYCYCLINE INJ 100 MG in SODIUM CHLORIDE 0.9% (POP) 100 ML IV ×2 (08:54→21:58)
[2024-08-27] MEDS: MICAFUNGIN SODIUM INJ 100 MG in SODIUM CHLORIDE 0.9% 100 ML IV (08:55)
[2024-08-27] MEDS: LIDOCAINE 2% VISCOUS 10 ML, DiphenhydrAMINE 25 MG, MG HYD/AL HYD/SIME SUSP 30 ML, NYSTA... PO ×2 (08:56→20:57)
[2024-08-27] MEDS: NAPH,KPH MBDB 1 PACKET (1.5 GM) PO (09:11)
[2024-08-27] MEDS: Magnesium Sulfate 4 GM Ivpb 4 GM/50 ML BAG IV (09:11)
[2024-08-27 09:37] LABS: Cocci Serology, IgG Negative (Negative)
[2024-08-27] MEDS: FILGRASTIM INJ (ZARXIO) 300 MCG/0.5 ML SYRINGE SC (11:54)
--- NOTE | 2024-08-27 15:36 | ESPR_ITS ---
Documentation for date of: 08/27/24 Subjective Subjective Interval history: Patient was seen and examined at the bedside. No acute overnight events were reported. No fever spike was recorded. Patient was doing well and reported to have improvement in her overall condition. Vitals were stable. Labs revealed only slight improvement in her ANC. Hemoglobin was at 7.1. Patient denied having any overt bleeding. Electrolytes were repleted.CT chest abdomen was shown to escort car driver, Dr. Unger. CT significant for soft tissue metastatic tumor mass destroying the posterior right 2nd and 3rd rib extending into the mediastinum with right hilar metastatic lymphadenopathy. He recommended to order QuantiFERON-TB and suspected possibility of aspergillosis. Blood cultures -24 hours. Will continue with filgrastim, cefepime, vancomycin, micafungin and acyclovir. Cocci was negative. Fungal cultures will be followed as well. All labs and orders were reviewed. Exam Vital Signs Temp Pulse Resp BP Pulse Ox O2 Del Method 99.1 F 68 19 118/80 98 Room Air 08/27/24 12:00 08/27/24 12:00 08/27/24 12:00 08/27/24 12:08/27/24 12:08/27/24 12:00 Narrative Exam GENERAL APPEARANCE: Patient is frail appearing AO x 3. Saturating well on room air. HEENT: NC, AT. Aphthous ulcer/mucositis seen in lower lip. EOMI, clear conjunctiva, oropharynx clear. NECK: Supple without lymphadenopathy. No stiffness or restricted ROM. HEART: Regular rate and regular rhythm, normal S1/S2, no m/r/g LUNGS: CTAB, moving air well. No crackles or wheezes are heard. ABDOMEN: Soft, nontender, nondistended with good bowel sounds heard. BACK: No CVAT, no obvious deformity. EXTREMITIES: Without cyanosis, clubbing or edema. NEUROLOGICAL: Grossly nonfocal. Alert and oriented, moving all 4 extremities. CN not formally tested but appear grossly intact. Observed to ambulate with normal gait. Skin: Warm and dry without any rash. Psych: Appropriate mood and affect Objective Labs 08/28/24 05:41 08/28/24 05:41 Labs: Laboratory Results - last 24 hr 08/26/24 08/26/24 08/27/24 02:23 11:30 04:35 WBC 0.5 L* RBC 2.27 L Hgb 7.1 L Hct 21.6 L* MCV 95 MCH 31.3 MCHC 32.9 RDW Std Deviation 53.4 H Plt Count 39 L Neut % (Auto) 27 L Lymph % (Auto) 57 H [place] % (Auto) 14 H Eos % (Auto) 2 Baso % (Auto) 0 Neut # (Auto) 0.1 L Lymph # (Auto) 0.3 L [place] # (Auto) 0.1 Eos # (Auto) 0.0 Baso # (Auto) 0.0 Immature Gran # (Auto) 0.00 Absolute Nucleated RBC 0.00 Immature Gran % 0 Nucleated RBC % 0 Sodium 143 Potassium 3.5 Chloride 107 Carbon Dioxide 22.3 Anion Gap 14 BUN 8 L Creatinine 0.6 Estim Creat Clear Calc 92.6 eGFR > 60 BUN/Creatinine Ratio 13 Glucose 106 Calculated Osmolality 283 Calcium 8.4 Corrected Calcium 8.7 Phosphorus 2.3 L Magnesium 1.7 Total Bilirubin 0.4 AST 17 ALT 21 Alkaline Phosphatase 72 Total Protein 5.5 L Albumin 3.6 Globulin 1.9 L Albumin/Globulin Ratio 1.9 Stl C. diff Tox B Gene Negative Coccidioides IgG Ab Negative Misc Test Result Platelets confirmed Quality Measures Quality Measures VTE prophylaxis Assessment & Plan Assessment Current Active Medications: Generic Name Dose Route Start Last Admin Trade Name Freq PRN Reason Stop Dose Admin Acetaminophen 650 mg 08/25/24 15:45 08/26/24 16:17 Acetaminophen 325 Mg Tablet PO 09/24/24 15:44 650 mg Q6H PRN Administration Fever >101.5 Acetaminophen 650 mg 08/25/24 15:45 Acetaminophen 325 Mg Tablet PO 09/24/24 15:44 Q6H PRN PAIN SCALE 1-3 (mild Hydrocodone Bitart/Acetaminophen 1 tab 08/27/24 21:00 Hydrocodone/Apap 10/325 Tab PO 09/01/24 20:59 BID DARLINE Acyclovir 800 mg 08/26/24 22:00 08/27/24 13:48 Acyclovir 800 Mg Tablet PO 09/02/24 21:59 800 mg TID DARLINE Administration Benzocaine 0 gm 08/25/24 15:58 Benzocaine Gel 10% 5.3 Gm Tube TOP 09/24/24 15:57 QID PRN mouth sores Lidocaine HCl 10 ml/ 0 ml 08/26/24 21:00 08/27/24 08:56 Diphenhydramine HCl 25 mg/ Al PO 09/02/24 20:59 1 dose Hydrox/Mg Hydrox/Simethicone BID DARLINE Administration 30 ml/ Nystatin 10 ml Filgrastim 300 mcg 08/27/24 11:45 08/27/24 11:54 Filgrastim Inj (Zarxio) 300 Mcg/0.5 Ml Syringe SC 08/29/24 14:29 300 mcg QDAY DARLINE Administration Gabapentin 200 mg 08/26/24 06:00 08/27/24 13:48 Gabapentin 100 Mg Capsule PO 09/25/24 05:59 200 mg TID DARLINE Administration Cefepime HCl 2 gm/ Sodium 50 mls @ 100 mls/hr 08/25/24 21:00 08/27/24 09:30 Chloride IV 09/01/24 20:59 Infused Q12HR DARLINE Infusion Doxycycline Hyclate 100 mg/ 100 mls @ 100 mls/hr 08/25/24 21:00 08/27/24 10:54 Sodium Chloride IV 09/01/24 20:59 Infused BID DARLINE Infusion Micafungin Sodium 100 mg/ 100 mls @ 100 mls/hr 08/26/24 14:32 08/27/24 10:00 Sodium Chloride IV 09/10/24 14:31 Infused QDAY DARLINE Infusion Metoprolol Succinate 100 mg 08/25/24 21:00 08/26/24 20:38 Metoprolol Succinate Xl 25 Mg Tabcr PO 09/24/24 20:59 100 mg HS DARLINE Administration Ondansetron HCl 4 mg 08/25/24 15:45 Ondansetron Inj 2 Mg/Ml Inj 2 Ml IVP 09/24/24 15:44 Q6H PRN NAUSEA OR VOMITING Protocol Pharmacy Consult 1 each 08/25/24 15:57 Pharmacy Renal Dose Adjustment 1 Ea XX 09/24/24 15:56 PRN PRN CONSULT Sennosides 1 tab 08/25/24 15:58 Senna Tablet PO 09/24/24 15:57 QDAY PRN CONSTIPATION Protocol Sertraline HCl 50 mg 08/26/24 21:00 08/26/24 20:38 Sertraline Hcl 25 Mg Tablet PO 09/25/24 08:59 50 mg HS DARLINE Administration Plan This 59F with metastatic colon cancer on chemo admitted with persistent neutropenic fever (WBC 0.5, Hgb 7.4), mucositis, Afib overnight, started on micafungin and acyclovir, fungal cultures and CT chest/abdomen/pelvis ordered, ID consulted, remains DNR/DNI. # Neutropenic Fever: #History of metastatic colon cancer on chemotherapy -Patient presented with fever spikes from couple of weeks. She was also found to have mucositis and rectal vesicular rash few weeks ago. ? Prelim blood cultures negative x 24 hours, cocci negative ?CT chest abdomen pelvis showed 5 x 6 cm soft tissue metastatic tumor mass destroying the posterior right second, third, RIBS, the mass extending into the mediastinum with right hilar metastatic lymphadenopathy. 31 x 34 mm soft tissue tumor mass in the medial lower right hemithorax. ? No fever spikes were recorded overnight Plan: * Persistent neutropenia (WBC 0.5) ? filgrastim ongoing for 5 days (2/5 complete). * Consider changing dose of filgrastim to 480 since ANC is not improving appropriately * Continue IV cefepime + vancomycin. * Continue micafungin for possible fungal coverage given persistent fever and mucositis. * Blood cultures for fungus, Aspergillus ordered. * CT chest/abdomen/pelvis with contrast ordered to evaluate for occult source. * Infectious Disease consulted, following. * Strict neutropenic precautions. # Mucositis / ?HSV: ? Patient was found to have mucositis found in lower lip. Plan: * Persistent painful mucositis, poor PO intake. * Acyclovir restarted given concern for possible HSV reactivation. * Using magic mouthwash for symptom relief. #Diarrhea /anal fissure: ? Patient was using nitroglycerin cream prepared by pharmacy given by GI specialist for an fissure. Plan: * Diarrhea resolved, C. diff negative * Fissure pain persists with BMs * Monitor for recurrence. #Afib: * [id number] Plan: * Afib noted overnight, rate-controlled with metoprolol succinate 100 mg at bedtime * Monitor HR and BP closely. * Check electrolytes daily. * Keep mag above 2 and potassium above 4 #Anemia/Thrombocytopenia: ? Like related to malignancy * Hgb dropped to 7.4 ?> 7.1 monitor closely, transfuse PRBCs if symptomatic or Hgb <7. * Monitor platelets daily ? transfuse if indicated. * Monitor for signs of bleeding and bruising #Electrolyte disturbance #Hypophosphatemia #Hypomagnesemia Plan: * Replete electrolytes as necessary # History of metastatic Colon Cancer on chemotherapy #Necrotic mass over posterior with mediastinal involvement DDx: Metastatic cyst from liver density, vasculitis like GPA, aspergillosis, TB ? CT chest abdomen pelvis showed 5 x 6 cm soft tissue metastatic tumor mass destroying the posterior right second, third, RIBS, the mass extending into the mediastinum with right hilar metastatic lymphadenopathy. 31 x 34 mm soft tissue tumor mass in the medial lower right hemithorax ? Patient has a Port-A-Cath placed and is on chemotherapy. Plan: * Quant TB added per escort car driver recommendations * Dr. Mandujano aware and following for chemo plan. * ID on board for infectious complications. # Chronic pain: ? In the setting of malignancy * Chronic back pain due to cancer. * Reassess pain control and adjust meds as needed. Disposition: * Lines: Port (left chest) * Diet: Regular * Bowel: Senna PRN * GI Prophylaxis: Not needed * DVT Prophylaxis: SCDs in place * Dispo: Await cultures, aspergillosis and quant TB, follow ID recommendations * Code: DNR/DNI per patient?s confirmed request Plan discussed with attending physician Dr. Ana Marroquin MD, PGY 3 Attending Provider Attestation/Addendum I, Gia Perez DO, attest that I was physically present for the eid portions of the service and evaluated the patient with the resident and I reviewed and discussed the case with the resident and agree with the resident's findings and plans of care as documented above Patient seen and eval this a.m. She states that she was feeling a lot of pain due to her aphthous ulcers in her mouth. Ulcer is locatedLocated in the inferior labial frenulum of her mouth. It does not appear to be infected. However, has been causing a lot of pain and discomfort despite Magic mouthwash. Patient underwent imaging yesterday during which she was noted to have an interval soft tissue tumor mass at the right apex destroying the posterior right second third ribs and invading the mediastinum extending to the right tracheobronchial prince complex and extending to the right hilar region. Gallbladder wall also appears thickened. She has a 31 x 34 mm soft tissue tumor mass in the medial right lower hemithorax. There is also concern for possible cholecystitis. However, patient has been tolerating her diet without issue and denies any abdominal pain, as well as nausea and vomiting. Patient endorses having some chest discomfort in her right upper chest due to the invasion of the tumor in her ribs. She is otherwise in no acute distress and denies any shortness of breath. Patient is currently on doxycycline, cefepime and was started on micafungin yesterday. She had a fever yesterday afternoon. She also remains on her acyclovir for the rectal vesicular lesions. She continues to complain of pain when she has her bowel movements. Patient states she takes gabapentin 200 mg p.o. 3 times daily as well as [place] 10/650 mg twice daily scheduled due to her rib pain. Will schedule her [place]'s as she takes it at home. Medical records from outside hospital were requested yesterday, but due to holiday, was unable to be obtained. Patient allowed me to review her charts at [place], [facility] and [facility] on her patient portal on her phone. Patient was admitted at [facility] for 4 days during which she received daptomycin, cefepime, acyclovir. During that stay, patient had an ANC of 0. Bacterial cultures were otherwise negative. Imaging from 07/31/23 had reportedly had increased size and confluence of right-sided paramediastinal mass that invaded the mediastinum with severe narrowing of right upper lobe bronchus that encases other airways and vascular structures with a foci of gas indicating infection versus necrosis and severe erosion of the ribs. PET scan from January 2024 in comparison to October 2023 showed increased disease. Patient was also seen at [facility] during which she was admitted for necrotizing pneumonia during which she was evaluated by cardiothoracic surgery but was not recommended any intervention. During that hospitalization, patient was ruled out for cocci, mycoplasma and Legionella. Blood cultures were also negative at that time. She was noted to have 5.7 cm of necrotic components in the right upper lobe lesion. Will continue with current antibiotic, antifungal and antiviral regimen at this time. Will follow-up with ID recommendations. Final cultures of urine and blood are ultimately negative x 48 hours. Will continue for filgrastim for total of 5 days.
[2024-08-27] MEDS: METOPROLOL SUCCINATE XL 25 MG TABCR 100 MG PO (20:56)
[2024-08-27] MEDS: SERTRALINE HCL 25 MG TABLET 50 MG PO (20:56)
[2024-08-28] VITALS (9 sets, daily range): BP systolic 105–156; BP diastolic 80–104; PULSE 55–253; RESP 17–23; TEMP 35.9–37.3; O2SAT 82–100
[2024-08-28] MEDS: ACYCLOVIR 800 MG TABLET PO ×3 (05:55→21:55)
[2024-08-28] MEDS: GABAPENTIN 100 MG CAPSULE 200 MG PO ×3 (05:55→21:55)
[2024-08-28 06:19] LABS: Basophils # (Auto) 0.0 Thou/mm3 (0.0-0.2); Basophils % (Auto) 1 % (0-2.5); Eosinophils # (Auto) 0.0 Thou/mm3 (0.0-0.5); Eosinophils % (Auto) 0 % (0-10); Hematocrit 23.7 % (36.0-46.0); Immature Granulocytes Auto 0.01 Thou/mm3 (0.00-0.00); Lymphocytes # (Auto) 0.4 Thou/mm3 (1.0-4.8); Lymphocytes % (Auto) 35 % (10-50); Mean Corpuscular HGB Conc 31.6 g/dl (31.0-37.0); Mean Corpuscular Hemoglobin 31.0 pg (25.0-35.0); Mean Corpuscular Volume 98 fL (80-100); Monocytes # (Auto) 0.3 Thou/mm3 (0.0-0.8); Monocytes % (Auto) 22 % (0-12); Neutrophils # (Auto) 0.5 Thou/mm3 (1.8-7.7); Neutrophils % (Auto) 42 % (37-80); Nucleated Red Blood Cell # 0.02 Thou/mm3 (0.00-0.00); Nucleated Red Blood Cell % 2 /100 WBC (0); RDW Standard Deviation 54.7 fL (36.4-46.3); Red Blood Count 2.42 Miln/mm3 (4.00-5.20)
[2024-08-28 06:21] LABS: Hemoglobin 7.5 g/dL (12.0-16.0); Platelet Count 74 Thou/mm3 (140-440); White Blood Count 1.2 Thou/mm3 (3.6-11.0)
[2024-08-28 06:42] LABS: Slide Review Platelets confirmed
[2024-08-28 06:51] LABS: Alanine Aminotransferase 30 U/L (10-49); Albumin, Serum 3.7 gm/dL (3.4-4.8); Albumin/Globulin Ratio 1.9 (1.2-2.2); Alkaline Phosphatase 76 U/L (46-116); Anion Gap 12 (7-16); Aspartate Amino Transferase 24 U/L (0-34); BUN/Creatinine Ratio 10 Ratio (12-20); Bilirubin,Total 0.5 mg/dL (0.3-1.2); Blood Urea Nitrogen 7 mg/dL (9-23); Calcium 8.8 mg/dL (8.3-10.6); Calcium (Corrected) 9.0 mg/dL (8.5-10.1); Carbon Dioxide 25.6 mMol/L (20.0-31.0); Chloride 107 mMol/L (98-107); Creatinine (Component) 0.7 mg/dL (0.6-1.3); Estimated Creatinine Clearance 79.4 mL/min (>60); Globulin 2.0 gm/dL (2.3-3.5); Glucose 97 mg/dL (74-106); Magnesium 2.1 mg/dL (1.6-2.6); Osmolality,Calculated 286 (275-295); Phosphorous 2.7 mg/dL (2.4-5.1); Potassium 3.9 mMol/L (3.4-5.1); Sodium 145 mMol/L (136-145); Total Protein 5.7 gm/dL (5.7-8.2); eGFR > 60 See Note
[2024-08-28] MEDS: LIDOCAINE 2% VISCOUS 10 ML, DiphenhydrAMINE 25 MG, MG HYD/AL HYD/SIME SUSP 30 ML, NYSTA... PO ×2 (09:04→21:55)
[2024-08-28] MEDS: DOXYCYCLINE INJ 100 MG in SODIUM CHLORIDE 0.9% (POP) 100 ML IV ×2 (09:04→21:53)
[2024-08-28] MEDS: CEFEPIME INJ 2 GM in SODIUM CHLORIDE 0.9% (Popper) 50 ML IV ×2 (09:05→20:06)
[2024-08-28] MEDS: MICAFUNGIN SODIUM INJ 100 MG in SODIUM CHLORIDE 0.9% 100 ML IV (09:05)
[2024-08-28] MEDS: FILGRASTIM INJ (ZARXIO) 300 MCG/0.5 ML SYRINGE SC (09:17)
--- NOTE | 2024-08-28 18:18 | ESPR_ITS ---
Documentation for date of: 08/28/24 Subjective Subjective Interval history: Patient seen at bedside this morning, resting comfortably, fully oriented, no acute distress. She reconfirms she wishes to remain DNR/DNI. She denies any fevers, chills, new cough, SOB, chest pain, palpitations, or dizziness. Mucositis remains painful and is limiting PO intake despite magic mouthwash. No diarrhea; still has pain with BMs due to fissure. She continues to have chronic back pain which is not fully controlled with current regimen. Reports trouble sleeping last night and requested Klonopin, which she takes at home. She also requests her port be flushed as it has been difficult to draw blood. Exam Vital Signs Temp Pulse Resp BP Pulse Ox O2 Del Method 97.3 F 62 19 120/82 98 Room Air 08/28/24 16:00 08/28/24 16:00 08/28/24 16:00 08/28/24 16:00 08/28/24 16:00 08/28/24 16:00 Narrative Exam General: Cachectic 59-year-old female, mild shivering, chills present. HEENT: Mucositis with cold sores on lower inner lip. No cervical lymphadenopathy. Cardiac: regular rate, regular rhythm. Respiratory: Clear to auscultation bilaterally. Abdomen: Soft with mild lower abdominal tenderness, no rebound or guarding. Skin: No rashes or wounds. Port site appears clean. Extremities: No edema, no signs of thrombosis. Neuro: Alert and oriented x3. Objective Labs 08/29/24 05:30 08/29/24 05:30 Labs: Laboratory Results - last 24 hr 08/28/24 05:41 WBC 1.2 L D RBC 2.42 L Hgb 7.5 L Hct 23.7 L MCV 98 MCH 31.0 MCHC 31.6 RDW Std Deviation 54.7 H Plt Count 74 L D Neut % (Auto) 42 Lymph % (Auto) 35 [place] % (Auto) 22 H Eos % (Auto) 0 Baso % (Auto) 1 Neut # (Auto) 0.5 L Lymph # (Auto) 0.4 L [place] # (Auto) 0.3 Eos # (Auto) 0.0 Baso # (Auto) 0.0 Immature Gran # (Auto) 0.01 H Absolute Nucleated RBC 0.02 H Immature Gran % 1 H Nucleated RBC % 2 H Sodium 145 Potassium 3.9 Chloride 107 Carbon Dioxide 25.6 Anion Gap 12 BUN 7 L Creatinine 0.7 Estim Creat Clear Calc 79.4 eGFR > 60 BUN/Creatinine Ratio 10 L Glucose 97 Calculated Osmolality 286 Calcium 8.8 Corrected Calcium 9.0 Phosphorus 2.7 Magnesium 2.1 Total Bilirubin 0.5 AST 24 ALT 30 Alkaline Phosphatase 76 Total Protein 5.7 Albumin 3.7 Globulin 2.0 L Albumin/Globulin Ratio 1.9 Misc Test Result Platelets confirmed Quality Measures Quality Measures VTE prophylaxis Assessment & Plan Assessment Current Active Medications: Generic Name Dose Route Start Last Admin Trade Name Freq PRN Reason Stop Dose Admin Acetaminophen 650 mg 08/25/24 15:45 08/26/24 16:17 Acetaminophen 325 Mg Tablet PO 09/24/24 15:44 650 mg Q6H PRN Administration Fever >101.5 Acetaminophen 650 mg 08/25/24 15:45 Acetaminophen 325 Mg Tablet PO 09/24/24 15:44 Q6H PRN PAIN SCALE 1-3 (mild Hydrocodone Bitart/Acetaminophen 1 tab 08/27/24 21:00 08/28/24 09:05 Hydrocodone/Apap 10/325 Tab PO 09/01/24 20:59 1 tab BID DARLINE Administration Acyclovir 800 mg 08/26/24 22:00 08/28/24 13:54 Acyclovir 800 Mg Tablet PO 09/02/24 21:59 800 mg TID DARLINE Administration Benzocaine 0 gm 08/25/24 15:58 Benzocaine Gel 10% 5.3 Gm Tube TOP 09/24/24 15:57 QID PRN mouth sores Lidocaine HCl 10 ml/ 0 ml 08/26/24 21:00 08/28/24 09:04 Diphenhydramine HCl 25 mg/ Al PO 09/02/24 20:59 1 dose Hydrox/Mg Hydrox/Simethicone BID DARLINE Administration 30 ml/ Nystatin 10 ml Filgrastim 300 mcg 08/27/24 11:45 08/28/24 09:17 Filgrastim Inj (Zarxio) 300 Mcg/0.5 Ml Syringe SC 08/29/24 14:29 300 mcg QDAY DARLINE Administration Gabapentin 200 mg 08/26/24 06:00 08/28/24 13:54 Gabapentin 100 Mg Capsule PO 09/25/24 05:59 200 mg TID DARLINE Administration Cefepime HCl 2 gm/ Sodium 50 mls @ 100 mls/hr 08/25/24 21:00 08/28/24 09:05 Chloride IV 09/01/24 20:59 100 mls/hr Q12HR DARLINE Administration Doxycycline Hyclate 100 mg/ 100 mls @ 100 mls/hr 08/25/24 21:00 08/28/24 09:04 Sodium Chloride IV 09/01/24 20:59 100 mls/hr BID DARLINE Administration Micafungin Sodium 100 mg/ 100 mls @ 100 mls/hr 08/26/24 14:32 08/28/24 09:05 Sodium Chloride IV 09/10/24 14:31 100 mls/hr QDAY DARLINE Administration Metoprolol Succinate 100 mg 08/25/24 21:00 08/27/24 20:56 Metoprolol Succinate Xl 25 Mg Tabcr PO 09/24/24 20:59 100 mg HS DARLINE Administration Ondansetron HCl 4 mg 08/25/24 15:45 Ondansetron Inj 2 Mg/Ml Inj 2 Ml IVP 09/24/24 15:44 Q6H PRN NAUSEA OR VOMITING Protocol Pharmacy Consult 1 each 08/25/24 15:57 Pharmacy Renal Dose Adjustment 1 Ea XX 09/24/24 15:56 PRN PRN CONSULT Sennosides 1 tab 08/25/24 15:58 Senna Tablet PO 09/24/24 15:57 QDAY PRN CONSTIPATION Protocol Sertraline HCl 50 mg 08/26/24 21:00 08/27/24 20:56 Sertraline Hcl 25 Mg Tablet PO 09/25/24 08:59 50 mg HS DARLINE Administration Plan 59F with metastatic colon cancer on chemo admitted with persistent neutropenic fever, counts slowly improving on filgrastim (day 4/5), on cefepime/doxy/micafungin with ID following, DNR/DNI. # Neutropenic Fever Febrile neutropenia with soft tissue necrotic mass and mucositis, ANC improving to 0.5 but patient remains high risk for fungal or atypical infections. Prelim cultures negative so far; Aspergillus and QuantiFERON pending. Plan: * Continue filgrastim, day 4/5 * Continue IV cefepime + doxycycline + micafungin for broad bacterial and fungal coverage. * ID following. * Maintain neutropenic precautions. * Monitor cultures and CT follow-up. # Mucositis /HSV Persistent painful mucositis limiting PO intake. Plan: * Continue acyclovir. * Continue magic mouthwash, frequent oral care. * Consider additional pain support if worsens. # Diarrhea / Anal Fissure Diarrhea resolved, fissure pain persists with BM. Plan: * Continue topical nitroglycerin cream. * Supportive care. # Afib ? Afib stable rate-controlled on metoprolol succinate 100 mg qHS. Plan: * Continue metoprolol. * Monitor HR/BP. * Maintain Mg >2, K >4. # Anemia/Thrombocytopenia Hgb 7.5, Plt 74, no signs of bleeding. Plan: * Monitor Hgb, transfuse PRBCs if <7 or symptomatic. * Monitor Plt, transfuse if indicated. # Electrolyte Disturbances Ongoing risk due to poor intake and chemo. Plan: * Replete as needed. # Metastatic Colon Cancer / Necrotic Mass Large destructive posterior rib mass with mediastinal extension; concern for necrotic tumor vs fungal vs TB. Plan: * Aspergillus and QuantiFERON pending. * Dr. Mandujano aware and following. * ID on board. # Chronic Pain Ongoing back pain, not fully controlled, trouble sleeping. Plan: * Reassess and adjust pain regimen. * Patient requests Klonopin for insomnia (home med) ? verify and resume if appropriate. # Port Access Patient reports trouble drawing blood. Plan: * Request nursing to flush port and verify patency today. Health maintenance Lines: Port (left chest) ? flush today Diet: Regular, encourage PO Bowel: Senna PRN GI Prophylaxis: Not needed DVT Prophylaxis: SCDs in place Dispo: Await Aspergillus & QuantiFERON, follow ID/onc Code: DNR/DNI ----- Plan discussed with attending physician Dr. Ana Cordon MD PGY-1 Internal Medicine Attending Provider Attestation/Addendum Gia Wilder DO, attest that I was physically present for the eid portions of the service and evaluated the patient with the resident and I reviewed and discussed the case with the resident and agree with the resident's findings and plans of care as documented above Patient seen and eval this a.m. Absolute neutrophil count is uptrending. Patient has not had any fevers over past 24 hours. Patient reports doing well overnight, but continues to have pain with bowel movements. Will follow-up with infectious disease recommendations and continue with current treatment at this time. Anticipate discharge in the next 24 hours if ANC continues to improve.
--- NOTE | 2024-08-28 19:22 | EKG_ITS ---
[facility] Test Date: 2024-08-28 Pat Name: QUETA MONTENEGRO [facility] Washer Off: BEATRIZ : 1965 Requested By: Don Henry Order Number: [id number] [place] MD: Don Henry Measurements Intervals [place] Rate: 102 P: 56 [place]: 178 QRS: 47 QRSD: 89 T: 67 QT: 329 QTc: 429 Interpretive Statements SINUS TACHYCARDIA MINIMAL ST DEPRESSION ABNORMAL RHYTHM ECG Compared to ECG 08/26/2024 01:19:24 Atrial flutter no longer present ST (T wave) deviation still present /store/S0/[id number].pdf
--- NOTE | 2024-08-28 19:33 | PD.RESEVENT ---
Documentation for date of: 08/28/24 Event Note Event Note: 08/28/2024: Rapid response called around 7:20 4 patient into 77, Antonietta Nugent as she was experiencing tachycardia. Patient seen and assessed in hospital bed with airway/breathing/circulation patent and patient responding to questions appropriately. Patient's heart rate apparently spiked to the low 200s with blood pressure stable at 120/90; remaining vital stable including patient's oxygenation status. Patient was apparently using the compound and attributes her tachycardia secondary to a fissure that she has. EKG ordered which shows sinus tachycardia with some ST depressions noted; patient is on metoprolol succinate 100 mg p.o. daily. Troponins ordered, will continue monitoring the patient for any acute changes. Keo Allan, DO PGY-2 Internal Medicine - GME
[2024-08-28 20:23] LABS: Troponin I < 0.020 ng/mL (0.0-0.045)
[2024-08-28] MEDS: METOPROLOL SUCCINATE XL 25 MG TABCR 100 MG PO (21:54)
[2024-08-28] MEDS: LOPERAMIDE 2 MG CAPSULE 4 MG PO (21:55)
[2024-08-28] MEDS: SERTRALINE HCL 25 MG TABLET 50 MG PO (21:55)
[2024-08-29] VITALS (10 sets, daily range): BP systolic 114–136; BP diastolic 56–83; PULSE 54–106; RESP 13–97; TEMP 36.1–36.4; O2SAT 97–99; BMI 25.1
[2024-08-29] MEDS: ACYCLOVIR 800 MG TABLET PO (05:28)
[2024-08-29] MEDS: GABAPENTIN 100 MG CAPSULE 200 MG PO ×2 (05:31→13:56)
[2024-08-29 06:13] LABS: Quantiferon-TB* See Sep Rpt
[2024-08-29 06:31] LABS: Basophils # (Auto) 0.0 Thou/mm3 (0.0-0.2); Basophils % (Auto) 1 % (0-2.5); Eosinophils # (Auto) 0.0 Thou/mm3 (0.0-0.5); Eosinophils % (Auto) 0 % (0-10); Hematocrit 25.4 % (36.0-46.0); Immature Granulocytes Auto 0.19 Thou/mm3 (0.00-0.00); Lymphocytes # (Auto) 0.8 Thou/mm3 (1.0-4.8); Lymphocytes % (Auto) 22 % (10-50); Mean Corpuscular HGB Conc 32.3 g/dl (31.0-37.0); Mean Corpuscular Hemoglobin 31.1 pg (25.0-35.0); Mean Corpuscular Volume 96 fL (80-100); Monocytes # (Auto) 0.7 Thou/mm3 (0.0-0.8); Monocytes % (Auto) 18 % (0-12); Neutrophils # (Auto) 2.0 Thou/mm3 (1.8-7.7); Neutrophils % (Auto) 54 % (37-80); Nucleated Red Blood Cell # 0.06 Thou/mm3 (0.00-0.00); Nucleated Red Blood Cell % 2 /100 WBC (0); Platelet Count 110 Thou/mm3 (140-440); RDW Standard Deviation 54.8 fL (36.4-46.3); Red Blood Count 2.64 Miln/mm3 (4.00-5.20); White Blood Count 3.7 Thou/mm3 (3.6-11.0)
[2024-08-29 06:43] LABS: Hemoglobin 8.2 g/dL (12.0-16.0)
[2024-08-29 06:48] LABS: Alanine Aminotransferase 30 U/L (10-49); Albumin, Serum 3.9 gm/dL (3.4-4.8); Albumin/Globulin Ratio 2.0 (1.2-2.2); Alkaline Phosphatase 86 U/L (46-116); Anion Gap 12 (7-16); Aspartate Amino Transferase 26 U/L (0-34); BUN/Creatinine Ratio 8 Ratio (12-20); Bilirubin,Total 0.5 mg/dL (0.3-1.2); Blood Urea Nitrogen 6 mg/dL (9-23); Calcium 9.2 mg/dL (8.3-10.6); Calcium (Corrected) 9.3 mg/dL (8.5-10.1); Carbon Dioxide 25.0 mMol/L (20.0-31.0); Chloride 108 mMol/L (98-107); Creatinine (Component) 0.8 mg/dL (0.6-1.3); Estimated Creatinine Clearance 69.4 mL/min (>60); Globulin 2.0 gm/dL (2.3-3.5); Glucose 94 mg/dL (74-106); Magnesium 1.9 mg/dL (1.6-2.6); Osmolality,Calculated 286 (275-295); Phosphorous 2.9 mg/dL (2.4-5.1); Potassium 4.1 mMol/L (3.4-5.1); Sodium 145 mMol/L (136-145); Total Protein 5.9 gm/dL (5.7-8.2); eGFR > 60 See Note
[2024-08-29] MEDS: DOXYCYCLINE INJ 100 MG in SODIUM CHLORIDE 0.9% (POP) 100 ML IV (08:22)
[2024-08-29] MEDS: CEFEPIME INJ 2 GM in SODIUM CHLORIDE 0.9% (Popper) 50 ML IV (08:23)
[2024-08-29] MEDS: LIDOCAINE 2% VISCOUS 10 ML, DiphenhydrAMINE 25 MG, MG HYD/AL HYD/SIME SUSP 30 ML, NYSTA... PO (08:27)
[2024-08-29] MEDS: MICAFUNGIN SODIUM INJ 100 MG in SODIUM CHLORIDE 0.9% 100 ML IV (09:19)
[2024-08-29] MEDS: FILGRASTIM INJ (ZARXIO) 300 MCG/0.5 ML SYRINGE SC (10:13)
--- NOTE | 2024-08-29 11:16 | PD.IDPROG ---
Subjective Subjective Interval history: low risk f and N with neg cx, fevers gone Exam Vital Signs Temp Pulse Resp BP Pulse Ox O2 Del Method O2 Flow Rate 97.0 F 106 H 16 121/81 99 Room Air 2 08/29/24 08:00 08/29/24 08:00 08/29/24 08:00 08/29/24 08:00 08/29/24 08:00 08/29/24 08:00 08/28/24 20:12 Narrative Exam chest lesion is more likely an old met as her colon ca returned. Objective - Internal Medicine Labs 08/29/24 05:30 08/29/24 05:30 Labs: Laboratory Results - last 24 hr 08/27/24 08/28/24 08/29/24 04:35 19:31 05:30 WBC 3.7 D RBC 2.64 L Hgb 8.2 L Hct 25.4 L MCV 96 MCH 31.1 MCHC 32.3 RDW Std Deviation 54.8 H Plt Count 110 L D Neut % (Auto) 54 Lymph % (Auto) 22 [place] % (Auto) 18 H Eos % (Auto) 0 Baso % (Auto) 1 Neut # (Auto) 2.0 Lymph # (Auto) 0.8 L [place] # (Auto) 0.7 Eos # (Auto) 0.0 Baso # (Auto) 0.0 Immature Gran # (Auto) 0.19 H Absolute Nucleated RBC 0.06 H Immature Gran % 5 H Nucleated RBC % 2 H Sodium 145 Potassium 4.1 Chloride 108 H Carbon Dioxide 25.0 Anion Gap 12 BUN 6 L Creatinine 0.8 Estim Creat Clear Calc 69.4 eGFR > 60 BUN/Creatinine Ratio 8 L Glucose 94 Calculated Osmolality 286 Calcium 9.2 Corrected Calcium 9.3 Phosphorus 2.9 Magnesium 1.9 Total Bilirubin 0.5 AST 26 ALT 30 Alkaline Phosphatase 86 Troponin I < 0.020 Total Protein 5.9 Albumin 3.9 Globulin 2.0 L Albumin/Globulin Ratio 2.0 Misc Test Result Cancelled Assessment & Plan A&P Narrative fever and neutropenia, resolved fever and neutropenia with neg cx possible pum met for colon ca vs other process. changed to po cipro for low risk neutropenia added cocci cf to w/u as cocci is 10x more common in [facility] than is tb Time Spent With Patient Time: Total time spent is greater than 50% in coordination of care (as documented) at patient's floor/unit and/or counseling patient:
[2024-08-29 12:33] LABS: Hepatitis C Antibody Non Reactive (Non React)
[2024-08-29 12:51] LABS: HIV (1&2) Antibody Rapid Non-Reactive
[2024-08-29 13:44] LABS: Cocci Serology, IgM Negative (Negative)
--- NOTE | 2024-08-29 15:22 | PC.SS ---
SS follow up note; ID consult pending. Patient will discharge home possibly tomorrow.
--- NOTE | 2024-08-29 15:39 | ESCONSULT_ITS ---
RE: QUETA MONTENEGRO : 1965 DATE OF CONSULTATION: 08/29/2024 REFERRING PHYSICIAN: REASON FOR CONSULTATION: Fever, neutropenia, colon cancer with known metastasis. HISTORY OF PRESENT ILLNESS: The patient is noted to have a rib and upper chest metastasis from her colon cancer from before. The imaging studies raise concern for that, but we ordered Valley fever test as a precaution, but she has not had much response. She is a little concerned about that and she may be on her last chemo at this point. Her medical problems include the colon cancer with possible metastases and anorectal fissure for which she had some prior procedure in other hospitals. She was visiting her sister in [place] recently and has a port. All cultures are negative. SURGICAL HISTORY: Includes a diverting colostomy at one point followed by reanastomosis later on about . ALLERGIES: NONE NOTED. IMMUNIZATIONS: Last tetanus is not known. She does take a flu shot every year. I do not recall the COVID vaccine and pneumococcal vaccine status. FAMILY HISTORY: Positive for cancer in various relatives. All different kinds of cancers are noted. SOCIAL HISTORY: The patient lives alone. Daughter is going to be with her. She is 2, para 4 The daughter plans to with her in the near future. She reports that she is on her last round of chemo. She has received treatment about every 2 weeks. There is a pulmonary lesion that is thought to be metastatic, but I do not have any further information on that. I will check on her again down the road. If her valley fever test is positive, I am happy to see her, but otherwise no need for infectious disease follow up if the test is negative except for the QuantiFERON. She appears to be asymptomatic, so I am going to go ahead and switch her to oral low-risk neutropenic status and she may follow up and be discharged at your discretion. DT: 11:56:11 TT: 15:04:00 Ref: [id number] - TID: [id number]
--- NOTE | 2024-08-29 17:00 | ESDS_ITS ---
<Statement entered by Gia Perez DO - 08/30/24 14:25> I, Gia Perez DO, attest that I was physically present for the eid portions of the service and evaluated the patient with the resident and I reviewed and discussed the case with the resident and agree with the resident's findings and plans of care as documented above Planned Discharge Date 08/29/24 DS: Providers Provider Date of admission: 08/25/24 15:45 Primary care physician: Clayton Clement MD Admitting Provider: Daniel Turner MD Attending Provider on Admission: Gia Perez DO Consults: 08/25/24 15:55 Consult to Infectious Diseases Routine Comment: Consulting Provider: Kyree Ferguson Consult to Oncology Stat Comment: Consulting Provider: Kapil Mandujano 08/25/24 23:03 Health Equity Referral - Knowledge Deficit Routine Comment: Positive screening for knowledge deficit needs. 08/25/24 23:04 Referral Infection Control Routine Comment: Reason for Infection Control Referral: Readmitted within 30 days Patient In Isolation Attending Provider on DC: Gia Perez DO Discharging Provider: Casey Tipton MD DS: Diagnosis Problem List Completed Was Problem List Reviewed/Reconciled?: Yes Hospital Course Hospital Course Hospital course: 59-year-old female with metastatic colon cancer diagnosed in 2009, status post lower anterior resection with a temporary ileostomy (now reversed) and a left- sided port, presenting with neutropenic fever. She was recently hospitalized in [place] for neutropenic fever but left AMA to continue her cancer treatment locally. Patient received broad coverage with cefepime, doxycycline, micafungin. Spoke with patient's oncologist Dr. Mandujano, per recommendations gave patient filgrastim until ANC increased to 2000. ID consulted, recommend discharging patient with 1 week ciprofloxacin. Cultures and imaging unremarkable. Patient medically stable and cleared for discharge. Discharge plan: You have been started on the following medications: - ciprofloxacin 500mg twice daily for 6 days. The following medications have been STOPPED: acyclovir Please continue taking all home medications as previously prescribed Please follow up with your primary doctor within 7-10 days Please follow up with Dr. Mandujano tomorrow. Return to the ED if you develop new or worsening symptoms. Diagnoses: #Neutropenic Fever #Mucositis /HSV #Diarrhea / Anal Fissure #Afib ? Afib stable #Anemia/Thrombocytopenia #Electrolyte Disturbances #Metastatic Colon Cancer / Necrotic Mass #Chronic Pain #Port Access Plan of care discussed with attending Dr. Perez. Casey Liu MD PGY?2 Status at Discharge Overall status at discharge: patient is back to baseline Time Spent with Patient Time attestation: Total time spent providing and/or coordinating discharge services: Time spent: Greater than 30 minutes Exam Vital Signs Temp Pulse Resp BP Pulse Ox O2 Del Method O2 Flow Rate 97.6 F 82 17 136/56 H 98 Room Air 2 08/29/24 12:00 08/29/24 14:50 08/29/24 14:50 08/29/24 12:00 08/29/24 12:00 08/29/24 12:00 08/28/24 20:12 Narrative Exam General: Cachectic 59-year-old female, no acute distress HEENT: Mucositis with cold sores on lower inner lip. No cervical lymphadenopathy. Cardiac: regular rate, regular rhythm. Respiratory: Clear to auscultation bilaterally. Abdomen: Soft without tenderness, no rebound or guarding. Skin: No rashes or wounds. Port site appears clean. Extremities: No edema, no signs of thrombosis. Neuro: Alert and oriented x3. Discharge Plan Plan Patient Disposition: HOME (Self Care) Patient condition on transfer: Stable Care Plan Goals: You have been started on the following medications: - ciprofloxacin 500mg twice daily for 6 days. The following medications have been STOPPED: acyclovir Please continue taking all home medications as previously prescribed Please follow up with your primary doctor within 7-10 days Please follow up with Dr. Mandujano tomorrow. Return to the ED if you develop new or worsening symptoms. Prescriptions/Referrals Prescriptions/Med Rec: New ciprofloxacin HCl 500 mg tablet 500 mg PO BID 6 Days Qty: 12 0RF Continued omeprazole 40 mg Capsule,Delayed Release(Dr/Ec) 40 mg PO QDAY meloxicam 15 mg Tablet 15 mg PO QDAY sertraline [Zoloft] 50 mg Tablet 50 mg PO QDAY Estroven 155 mg Capsule 1 cap PO DAILY gabapentin 100 mg capsule 200 mg PO TID hydrocodone-acetaminophen 10-325 mg tablet 1 tab PO Q8H PRN (Reason: pain (scale score 7-10)) Patient Comments: TAKE 1 TABLET BY MOUTH TWICE A DAY NEEDED FOR PAIN clonazepam 0.5 mg tablet 0.5 mg PO HS Patient Comments: TAKE 1 TABLET BY MOUTH EVERY DAY metoprolol succinate 100 mg tablet extended release 24 hr 100 mg PO HS Patient Comments: TAKE 1 TABLET BY MOUTH EVERY DAY amlodipine 5 mg tablet 5 mg PO HS Patient Comments: TAKE 1 TABLET BY MOUTH TWICE A DAY Discontinued acyclovir 800 mg tablet 800 mg PO TID Rx Instructions: For 10 days lisinopril 20 mg tablet 20 mg PO HS Patient Comments: TAKE 1 TABLET BY MOUTH TWICE A DAY hydrocodone-acetaminophen 7.5-325 mg tablet 1 tab PO Q6H PRN (Reason: Pain) Patient Comments: TAKE 1 TABLET BY MOUTH EVERY 6 HOURS NEEDED Referrals: Clayton Clement MD [Primary Care Provider] - Patient/Caregiver Discharge Instructions Discharge Activity: activity as tolerated Education Materials: Neutropenia, Understanding Filgrastim Print Language: Peruvian Stand Alone Forms: [facility]ya Award Info., Patient Portal Info Letter Discharge Order Discharge Orders: Discharge (Routine); Ordered 08/29/24 Ordered By: Casey Tipton Quality Discharge Quality Measures VTE prophylaxis
[2024-08-29] MEDS: HEPARIN SOD LOCK SYR 100 UNIT/ML IV (17:14)
[2024-08-30 12:42] LABS: Cocci Serology, IgG Negative (Negative)
== END 2024-08-29 18:10 | disposition home or self-care (01) | DRG 809 ==
LOC: SERX 14:45 → SERHOLD 16:15 → S3NX 22:18 → S2NX 08-26 02:01
PROVIDERS: Internal Medicine Infectious Disease; Nurse Practitioner Family; Physician Assistant Medical; Student in an Organized Health Care Education/Training Program; Admitting Provider Internal Medicine; Emergency Provider Family Medicine; PCP Student in an Organized Health Care Education/Training Program; Visit Provider Internal Medicine
DX: D70.9 Neutropenia, unspecified (principal); C19 Malignant neoplasm of rectosigmoid junction; C77.1 Secondary and unspecified malignant neoplasm of intrathoracic lymph nodes; C79.89 Secondary malignant neoplasm of other specified sites; I10 Essential (primary) hypertension; K12.30 Oral mucositis (ulcerative), unspecified; R50.81 Fever presenting with conditions classified elsewhere; I48.91 Unspecified atrial fibrillation; D69.6 Thrombocytopenia, unspecified; E83.39 Other disorders of phosphorus metabolism; E83.42 Hypomagnesemia; G47.00 Insomnia, unspecified; K60.2 Anal fissure, unspecified; G89.3 Neoplasm related pain (acute) (chronic); K12.0 Recurrent oral aphthae; K62.89 Other specified diseases of anus and rectum; Z66 Do not resuscitate; Z79.899 Other long term (current) drug therapy; R00.0 Tachycardia, unspecified
CPT/HCPCS: 36415; 71045; 71260; 74177; 80053; 81001; 83605; 83615; 83690; 83735; 83880; 84100; 84145; 84443; 84484; 85025; 85610; 85730; 86331; 86480; 86635; 86703; 86803; 86850; 86900; 86901; 87040; 87081; 87086; 87305; 87400; 87493; 87811; 93005; 93225; 96365; 96367; 96372; 99285; A4649; J0692; J0696; J1642; J2247; J3475; J3490; J7030; J7050; Q5101; Q9967; A9270

== ENCOUNTER 2024-09-15 14:21 | Outpatient (RCR) | payer MEDICARE, SELFPAY ==
[2024-08-25 11:40] LABS: Collection Type, Urine Voided
[2024-08-25 11:47] LABS: Basophils # (Auto) 0.0 Thou/mm3 (0.0-0.2); Basophils % (Auto) 0 % (0-2.5); Eosinophils # (Auto) 0.0 Thou/mm3 (0.0-0.5); Eosinophils % (Auto) 3 % (0-10); Hematocrit 24.2 % (36.0-46.0); Immature Granulocytes Auto 0.00 Thou/mm3 (0.00-0.00); Lymphocytes # (Auto) 0.2 Thou/mm3 (1.0-4.8); Lymphocytes % (Auto) 71 % (10-50); Mean Corpuscular HGB Conc 33.5 g/dl (31.0-37.0); Mean Corpuscular Hemoglobin 31.5 pg (25.0-35.0); Mean Corpuscular Volume 94 fL (80-100); Monocytes # (Auto) 0.0 Thou/mm3 (0.0-0.8); Monocytes % (Auto) 10 % (0-12); Neutrophils # (Auto) 0.1 Thou/mm3 (1.8-7.7); Neutrophils % (Auto) 16 % (37-80); Nucleated Red Blood Cell # 0.00 Thou/mm3 (0.00-0.00); Nucleated Red Blood Cell % 0 /100 WBC (0); RDW Standard Deviation 53.1 fL (36.4-46.3); Red Blood Count 2.57 Miln/mm3 (4.00-5.20)
[2024-08-25 11:50] LABS: Bilirubin,Urine Negative (Negative); Blood,Urine 2+ (Negative); Clarity,Urine Clear (Clear/Hazy); Color,Urine Yellow (Lt Yel-Yel); Glucose, Urine Negative (Negative); Hyaline Casts,Urine < 1 /hpf (0-1); Ketones,Urine Trace (Negative); Leukocyte Esterase,Urine Negative (Negative); Nitrite,Urine Negative (Negative); PH,Urine 6.0 (5.0-7.0); Protein,Urine 2+ (Neg - Trace); RBC,Urine 19 /hpf (0-3); Specific Gravity,Urine 1.020 (1.001-1.035); Squamous Epithelial Cell,Urine < 1 /hpf (0-5); Urobilinogen,Urine Negative mg/dL (0.0-1.0); WBC,Urine 7 /hpf (0-5)
[2024-08-25 11:51] LABS: Hemoglobin 8.1 g/dL (12.0-16.0); Platelet Count 32 Thou/mm3 (140-440)
[2024-08-25 11:53] LABS: White Blood Count < 0.4 Thou/mm3 (3.6-11.0)
[2024-08-25 11:55] LABS: Slide Review Platelets confirmed
[2024-08-25 12:02] LABS: Alanine Aminotransferase 23 U/L (10-49); Albumin, Serum 4.0 gm/dL (3.4-4.8); Albumin/Globulin Ratio 1.9 (1.2-2.2); Alkaline Phosphatase 86 U/L (46-116); Anion Gap 6 (7-16); Aspartate Amino Transferase 17 U/L (0-34); BUN/Creatinine Ratio 11 Ratio (12-20); Bilirubin,Total 0.5 mg/dL (0.3-1.2); Blood Urea Nitrogen 11 mg/dL (9-23); Calcium 8.9 mg/dL (8.3-10.6); Calcium (Corrected) 8.9 mg/dL (8.5-10.1); Carbon Dioxide 27.1 mMol/L (20.0-31.0); Chloride 105 mMol/L (98-107); Creatinine (Component) 1.0 mg/dL (0.6-1.3); Globulin 2.1 gm/dL (2.3-3.5); Glucose 121 mg/dL (74-106); Osmolality,Calculated 276 (275-295); Potassium 3.4 mMol/L (3.4-5.1); Sodium 138 mMol/L (136-145); Total Protein 6.1 gm/dL (5.7-8.2); eGFR > 60 See Note
[2024-08-25 12:21] LABS: Carcinoembryonic Antigen 23.3 ng/mL (0.0-5.0)
--- NOTE | 2024-08-31 05:32 | CTCFLWUP_ITS ---
Patient: QUEAT MONTENEGRO : 1965 Page 3 of 5 FOLLOW UP NOTE DATE OF SERVICE: 08/30/2024 NAME: QUETA MONTENEGRO ACCOUNT: [id number] : 1965 AGE: 59 INTERVAL HISTORY: Patient was recently admitted to the hospital. She was treated for her sepsis from pneumonia. She was neutropenic and has been on Neupogen ONCOLOGY HISTORY: DIAGNOSIS: Malignant neoplasm of rectum [ICD10] C20; Secondary malignant neoplasm of unspecified lung [ICD10] C78.00 Malignant neoplasm of rectum [ICD10] C20; Secondary malignant neoplasm of unspecified lung [ICD10] C78.00 DATE OF DIAGNOSIS: STAGE/TNM: TREATMENT HISTORY: Care?Plan Start?Date Cycle Day Intent Bevacizumab?5mg/kg 06/07/2024 1 28 Maintenance Bevacizumab?7.5?mg/kg?-?Met 07/03/2020 1 21 Palliative FOLFIRI?+?Bevacizumab?5mg/kg 02/28/2020 1 14 Palliative 5FU?infu?avastin 02/17/2019 1 14 Palliative Rx?Capecitabine?+?Bevacizumab?7.5mg/kg 02/01/2018 1 21 Palliative FOLFIRI?+?Bevacizumab?10?mg/kg 07/14/2017 1 28 Definitive HISTORY OF PRESENT ILLNESS: 08/10/2009: Rectal mass biopsy showed moderately differentiated adenocarcinoma. K-laurence mutation not detected. No loss of expression of MMR proteins. She was treated with neoadjuvant chemoradiation at [facility]. Following the surgery she was found to have T2N2 stage III disease. Postoperatively she was treated with adjuvant chemotherapy with FOLFOX. 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 06/08/2017: CT-guided biopsy of the lung mass showed metastatic carcinoma consistent with colorectal primary. Intact and and or expression. PDL 1 expression negative. Since last visit patient was seen at [facility] on the 10/07/2017. She had a CT scan of the chest abdomen pelvis with contrast done. CT scan showed a right upper lobe 14 x 11 mm and the right lower lobe 15 x 9 mm lesions. Both of these are smaller when compared to the previous scans. Patient is in the clinic today for follow-up. The recommendation Patient: QUETA MONTENEGRO : 1965 Page 2 of 10 from a [facility] physician is to continue current regimen of chemotherapy of full feeding and Avastin. Patient is clinically doing very well. Denies any cough chest pain abdominal pain or leg cramps. 11/09/2017: Patient is in the clinic today for follow-up. Since last visit I have discussed her case with Dr. Rusty Rangel of [facility]. She reviewed the CT scans with her cardiothoracic surgeon at [facility]. According to her patient is not a surgical candidate. 07/14/2017?12/23/2017: Patient was treated with 12 cycles of FOLFIRI plus Avastin. FOLFIRI chemotherapy was stopped due to significant nausea, vomiting as well as diarrhea. 02/01/2018: Patient was started on capecitabine and Avastin chemotherapy. 07/14/2018: CT scan of chest abdomen and pelvis at [facility]?status post low anterior resection tor treatment of a rectal malignancy. Stable pulmonary and pleural metastases. No evidence of metastatic disease in the abdomen or pelvis 02/17/2019: Patient was started on Capecitabine and Avastin again. 03/02/2019: Patient is started on 5-FU and Avastin. Capecitabine discontinued due to side effects 07/05/2019: Patient received last cycle of 5-FU and Avastin. 08/03/2019: CT scan of the chest abdomen and pelvis with contrast at [facility]? 10/04/2019?10/11/2019: Patient received 5400 cGy radiation to the right lung CTV 1 818 2019?9 02/2019: Patient received 5000 cGy radiation to right lung CTV 2. 10/27/2019?11/10/2019: Patient received 4000 cGy to the right lung CTV 3. 12/19/2019: CT scan of the chest with IV contrast? 01/15/2020: Patient had right-sided therapeutic thoracentesis. 1900 cc of dark red fluid was removed. Cytology showed metastatic adenocarcinoma consistent with colorectal primary. 01/26/2020: CT scan of the chest abdomen and pelvis with IV contrast? Patient: QUETA MONTENEGRO : 1965 Page 3 of 10 01/28/2020: PET CT scan? 02/28/2020: Patient received first cycle of dose reduced FOLFIRI with Avastin. 05/23/2020: CT scan of the chest abdomen and pelvis with IV contrast? 05/25/2020: PET CT scan? Patient: QUETA MONTENEGRO : 1965 Page 4 of 10 06/19/2020: Patient received last dose of FOLFIRI. 07/03/2020: Patient is started on capecitabine 1500 mg p.o. twice daily on a 2 weeks on and 1 week off regimen along with Avastin. 09/14/2020: CT scan of the chest abdomen and pelvis with IV contrast? 07/24/2020: CEA 3.4. 09/04/2020: CEA 5.3. 11/23/2020: CEA 2.3. 03/11/2021: CEA 4.2. 04/01/2021: CEA 5.3. 05/13/2021: CEA 8.9. 06/03/2021: CEA 9.9. 08/22/2021: CEA 8.8. 08/09/2021: CT scan of the chest abdomen and pelvis with IV contrast? Patient: QUETA MONTENEGRO : 1965 Page 5 of 10 11/18/2021: CEA 11.0. 01/02/2022: CT scan of the chest abdomen and pelvis with IV contrast? 04/15/2022: CEA 13.3. 10/08/2022: CEA 12.7. 04/06/2023: X-rays of the rib right side unilateral? 04/08/2023: Ultrasound of the right upper back 05/08/2023: PET/CT scan?the PET CT scan was compared to a PET CT scan done on December 09, [address] scan of the chest abdomen and pelvis done on November 03, 2022. Patient: QUETA MONTENEGRO : 1965 Page 6 of 10 06/23/2023: Ms. Montenegro had EBUS guided fine-needle aspiration of the mediastinal lymph node? 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 Align - As directed 2. amlodipine - 10 mg 1 tab Twice a Day 3. chlorhexidine gluconate - 0.12 % 15 mL twice daily 4. CholestOff Complete - 300-100 mg 1 Capsule Daily 5. clonazePAM - 0.5 mg 1 tab Every day before sleep 6. Estroven - 155 mg Capsule Daily 7. famotidine - 40 mg 1 tab Daily 8. Fish Oil - 300 mg 1 Capsule Twice a Day 9. flaxseed oil - 1,000 mg 1 Capsule Three times a day 10. gabapentin - 100 mg 2 Capsule EVERY 6 - 8 HRS PRN NERVE PAIN 11. HYDROcodone-acetaminophen - 10-325 mg 1 tab As directed 12. hyoscyamine sulfate - 0.125 mg 1 - 2 tab q4 13. Imodium A-D - 2 mg 1 Capsule As directed 14. levothyroxine - 25 mcg 1 tab Daily 15. Lidocaine HCl Viscous - 2 6 2 Teaspoon Every 6 Hours 16. Lomotil - 2.5-0.025 mg 2 tab four times a day 17. Lonsurf - 20-8.19 mg 3 tab Daily 18. Maalox - 225-200 mg/5 mL 20 cc Every 6 Hours 19. meloxicam - Daily 20. Metamucil - As directed 21. methylphenidate HCl - 5 mg 1 tab twice a day 22. metoprolol tartrate - 100 mg 1 tab Daily 23. nystatin - 100,000 unit/mL 2 Teaspoon Every 6 Hours 24. ondansetron - 8 mg 1 tab 1 tab every 8 hrs as needed for nausea 25. ondansetron - 8 mg 1 tab As directed 26. Ritalin - 5 mg 1 tab 1 tab po twice a day 27. Trelegy Ellipta - 100-62.5-25 mcg 1 As directed 28. Tylenol Extra Strength - 500 mg 2 Capsule As needed 29. Ventolin HFA - 90 mcg/actuation 1 - 2 Puff(s) q4 30. Vitamin D3 - 5,000 unit 5,000 Units Daily 31. Zoloft - 50 mg 1 tab As directed Medications Last Reconciled by Yi Garcia MA on 08/30/2024 ALLERGIES: nitrofurantoin macrocrystal; nitrofurantoin macrocrystal REVIEW OF SYSTEMS: A complete 14-point review of systems was performed and is negative except as noted in interval history. PHYSICAL EXAMINATION: VITAL SIGNS: Temperature?98.7, B/P?95/67, Oxygen?Saturation?95% PAIN: 5 - Between moderate and severe pain ECOG Performance Status: 2 - Symptomatic; ambulatory; capable of self-care; >50% of waking hrs. not in bed The patient appeared well-nourished, alert, and in no apparent distress via video conferencing. LABORATORY DATA: I have personally reviewed and interpreted each of the patient?s relevant lab tests, abnormal findings are below: Date 08/28/24 08/29/24 ??WHITE?BLOOD?COUNT?(Thou/mm3) 1.2?L 3.7 ??RED?BLOOD?COUNT?(Miln/mm3) 2.42?L 2.64?L ??HEMOGLOBIN?(gm/dl) 7.5?L 8.2?L ??HEMATOCRIT?(%) 23.7?L 25.4?L ??PLATELET?COUNT?(Thou/mm3) 74?L 110?L ??NEUTROPHILS?%,?AUTO?(%) 42 54 ??LYMPH?%,?AUTO?(%) 35 22 ??NEUTROPHILS,?AUTO?(Thou/mm3) 0.5?L 2.0 ??GLUCOSE,RANDOM?(mg/dL) ? 94 ??BLOOD?UREA?NITROGEN?(mg/dL) ? 6?L ??CREATININE?(mg/dL) ? 0.80 ??SODIUM?(mmol/L) ? 145 ??POTASSIUM?(mmol/L) ? 4.1 ??CHLORIDE?(mmol/L) ? 108?H ??CrCl?(CandG)?(ml/min) ? 75.30 ??AST/SGOT?(Unit/L) ? 26 ??ALT/SGPT?(Unit/L) ? 30 ??ALKALINE?PHOSPHATASE?(Unit/L) ? 86 ??BILIRUBIN,?TOTAL?(mg/dL) ? 0.5 ??PROTEIN?TOTAL?(gm/dl) ? 5.9 ??ALBUMIN,?SERUM?(gm/dl) ? 3.9 ??GLOBULIN?(gm/dl) ? 2.0?L ??ALBUMIN/GLOBULIN?RATIO ? 2.0 ??CALCIUM,?SERUM?(mg/dL) ? 9.2 ??CALCIUM?SERUM?(CORRECTED)?(mg/dL) ? 9.3 ??MAGNESIUM?(mg/dL) ? 1.9 ASSESSMENT/PLAN: Metastatic colon cancer Patient has been treated with chemoradiation. Patient received following treatment so far FOLFOX> IRI> FOLFIRI and Avastin> Avastin> Xeloda and Avastin Patient is currently on Xeloda and Avastin Patient have wild-type BRAF K-laurence Patient was started on Lonsurf after completing radiation to her shoulder Pain is well-controlled Comes after hospital discharge after being neutropenic Discussed with [facility] oncology and recommendation is to either add Neupogen or dose reduced Patient preferring and asking for dose reduction Will reduce Lonsurf to 40 mg twice daily instead of 60 mg Gave chlorhexidine mouthwash Advised to to do salt water gargles Will continue bevacizumab with Lonsurf at reduced dose RTC in 6 to 8 weeks RETURN TO CLINIC: I reviewed the diagnosis, prognosis, and recommended treatment/procedure options with the patient (and/or their legal product representative), including the potential benefits, risks, side effects and alternative therapies. We also discussed the option of no treatment and the possibility of clinical trial participation, if applicable. All questions were addressed, and they demonstrated understanding. They provided informed consent to proceed with the proposed plan of care. BILLING AND COMPLIANCE: I reviewed external records from providers outside my specialty as summarized above. I spent a total of 50 minutes on this patient?s care on the day of their visit excluding time spent related to any billed procedures. This time includes time spent with the patient as well as time spent documenting in the medical record, reviewing patients records and tests, obtaining history, placing orders, communicating with other healthcare professionals, counseling the patient, family or caregiver, and/or care coordination for the diagnoses above. Electronically Signed by: Kapil Mandujano MD T: 5:28 AM CC: Yi?Lucila,? PCP: Gilbert Doyle Referring: Gilbert Doyle This document was completed utilizing speech recognition software. Grammatical errors, random word insertions, pronoun errors, and incomplete sentences are an occasional consequence of this system due to software limitations, ambient noise, and hardware issues. Any formal questions or concerns about the content, text or information contained within the body of this dictation should be directly addressed to the provider for clarification.
[2024-09-06 16:02] LABS: Collection Type, Urine Voided
[2024-09-06 16:11] LABS: Basophils # (Auto) 0.0 Thou/mm3 (0.0-0.2); Basophils % (Auto) 0 % (0-2.5); Eosinophils # (Auto) 0.0 Thou/mm3 (0.0-0.5); Eosinophils % (Auto) 0 % (0-10); Hematocrit 26.5 % (36.0-46.0); Immature Granulocytes Auto 0.03 Thou/mm3 (0.00-0.00); Lymphocytes # (Auto) 1.1 Thou/mm3 (1.0-4.8); Lymphocytes % (Auto) 25 % (10-50); Mean Corpuscular HGB Conc 31.7 g/dl (31.0-37.0); Mean Corpuscular Hemoglobin 31.2 pg (25.0-35.0); Mean Corpuscular Volume 99 fL (80-100); Monocytes # (Auto) 0.5 Thou/mm3 (0.0-0.8); Monocytes % (Auto) 11 % (0-12); Neutrophils # (Auto) 2.8 Thou/mm3 (1.8-7.7); Neutrophils % (Auto) 63 % (37-80); Nucleated Red Blood Cell # 0.00 Thou/mm3 (0.00-0.00); Nucleated Red Blood Cell % 0 /100 WBC (0); Platelet Count 196 Thou/mm3 (140-440); RDW Standard Deviation 58.3 fL (36.4-46.3); Red Blood Count 2.69 Miln/mm3 (4.00-5.20); White Blood Count 4.5 Thou/mm3 (3.6-11.0)
[2024-09-06 16:20] LABS: Bilirubin,Urine Negative (Negative); Blood,Urine Negative (Negative); Clarity,Urine Clear (Clear/Hazy); Color,Urine Yellow (Lt Yel-Yel); Glucose, Urine Negative (Negative); Hyaline Casts,Urine < 1 /hpf (0-1); Ketones,Urine Negative (Negative); Leukocyte Esterase,Urine Negative (Negative); Nitrite,Urine Negative (Negative); PH,Urine 5.5 (5.0-7.0); Protein,Urine Negative (Neg - Trace); RBC,Urine 1 /hpf (0-3); Specific Gravity,Urine 1.023 (1.001-1.035); Squamous Epithelial Cell,Urine 2 /hpf (0-5); Urobilinogen,Urine Negative mg/dL (0.0-1.0); WBC,Urine 1 /hpf (0-5)
[2024-09-06 16:23] LABS: Alanine Aminotransferase 11 U/L (10-49); Albumin, Serum 4.0 gm/dL (3.4-4.8); Albumin/Globulin Ratio 1.7 (1.2-2.2); Alkaline Phosphatase 72 U/L (46-116); Anion Gap 9 (7-16); Aspartate Amino Transferase 21 U/L (0-34); BUN/Creatinine Ratio 17 Ratio (12-20); Bilirubin,Total 0.2 mg/dL (0.3-1.2); Blood Urea Nitrogen 17 mg/dL (9-23); Calcium 9.2 mg/dL (8.3-10.6); Calcium (Corrected) 9.2 mg/dL (8.5-10.1); Carbon Dioxide 26.3 mMol/L (20.0-31.0); Chloride 106 mMol/L (98-107); Creatinine (Component) 1.0 mg/dL (0.6-1.3); Globulin 2.3 gm/dL (2.3-3.5); Glucose 103 mg/dL (74-106); Osmolality,Calculated 282 (275-295); Potassium 4.6 mMol/L (3.4-5.1); Sodium 141 mMol/L (136-145); Total Protein 6.3 gm/dL (5.7-8.2); eGFR > 60 See Note
[2024-09-06 16:26] LABS: Carcinoembryonic Antigen 26.3 ng/mL (0.0-5.0)
[2024-09-06 17:25] LABS: Hemoglobin 8.4 g/dL (12.0-16.0)
[2024-09-13 13:50] LABS: Collection Type, Urine Voided
[2024-09-13 13:51] LABS: Basophils # (Auto) 0.1 Thou/mm3 (0.0-0.2); Basophils % (Auto) 2 % (0-2.5); Eosinophils # (Auto) 0.0 Thou/mm3 (0.0-0.5); Eosinophils % (Auto) 0 % (0-10); Hematocrit 28.2 % (36.0-46.0); Hemoglobin 8.9 g/dL (12.0-16.0); Immature Granulocytes Auto 0.01 Thou/mm3 (0.00-0.00); Lymphocytes # (Auto) 0.7 Thou/mm3 (1.0-4.8); Lymphocytes % (Auto) 17 % (10-50); Mean Corpuscular HGB Conc 31.6 g/dl (31.0-37.0); Mean Corpuscular Hemoglobin 31.0 pg (25.0-35.0); Mean Corpuscular Volume 98 fL (80-100); Monocytes # (Auto) 0.4 Thou/mm3 (0.0-0.8); Monocytes % (Auto) 10 % (0-12); Neutrophils # (Auto) 3.1 Thou/mm3 (1.8-7.7); Neutrophils % (Auto) 72 % (37-80); Nucleated Red Blood Cell # 0.00 Thou/mm3 (0.00-0.00); Nucleated Red Blood Cell % 0 /100 WBC (0); Platelet Count 230 Thou/mm3 (140-440); RDW Standard Deviation 61.7 fL (36.4-46.3); Red Blood Count 2.87 Miln/mm3 (4.00-5.20); White Blood Count 4.4 Thou/mm3 (3.6-11.0)
[2024-09-13 14:05] LABS: Bilirubin,Urine Negative (Negative); Blood,Urine Negative (Negative); Calcium Oxalate Crystals,Urine 3+; Clarity,Urine Clear (Clear/Hazy); Color,Urine Yellow (Lt Yel-Yel); Glucose, Urine Negative (Negative); Hyaline Casts,Urine < 1 /hpf (0-1); Ketones,Urine Negative (Negative); Leukocyte Esterase,Urine Negative (Negative); Nitrite,Urine Negative (Negative); PH,Urine 5.5 (5.0-7.0); Protein,Urine Negative (Neg - Trace); RBC,Urine 2 /hpf (0-3); Specific Gravity,Urine 1.019 (1.001-1.035); Squamous Epithelial Cell,Urine 1 /hpf (0-5); Urobilinogen,Urine Negative mg/dL (0.0-1.0); WBC,Urine 3 /hpf (0-5)
[2024-09-13 14:12] LABS: Alanine Aminotransferase 17 U/L (10-49); Albumin, Serum 3.8 gm/dL (3.4-4.8); Albumin/Globulin Ratio 1.7 (1.2-2.2); Alkaline Phosphatase 76 U/L (46-116); Anion Gap 10 (7-16); Aspartate Amino Transferase 22 U/L (0-34); BUN/Creatinine Ratio 14 Ratio (12-20); Bilirubin,Total 0.3 mg/dL (0.3-1.2); Blood Urea Nitrogen 11 mg/dL (9-23); Calcium 9.0 mg/dL (8.3-10.6); Calcium (Corrected) 9.2 mg/dL (8.5-10.1); Carbon Dioxide 24.9 mMol/L (20.0-31.0); Chloride 108 mMol/L (98-107); Creatinine (Component) 0.8 mg/dL (0.6-1.3); Globulin 2.2 gm/dL (2.3-3.5); Glucose 101 mg/dL (74-106); Osmolality,Calculated 284 (275-295); Potassium 4.3 mMol/L (3.4-5.1); Sodium 143 mMol/L (136-145); Total Protein 6.0 gm/dL (5.7-8.2); eGFR > 60 See Note
[2024-09-13 14:13] LABS: Carcinoembryonic Antigen 37.1 ng/mL (0.0-5.0)
== END 2024-09-22 23:59 | disposition home or self-care (01) ==
LOC: SCTC 14:21
PROVIDERS: Internal Medicine Hematology & Oncology; PCP Internal Medicine; Referring Provider Internal Medicine; Visit Provider Radiology Therapeutic Radiology
DX: Z51.11 Encounter for antineoplastic chemotherapy (principal); C20 Malignant neoplasm of rectum; C78.00 Secondary malignant neoplasm of unspecified lung; M54.6 Pain in thoracic spine
CPT/HCPCS: 36415; 36430; 36591; 80053; 81001; 82378; 85025; 96361; 96366; 96372; 96374; 96375; 96413; 96415; 96549; 99211; 99213; A4216; J1642; J2997; J3490; J7040; Q5107; G0463

== ENCOUNTER 2024-12-22 10:48 | Outpatient (RCR) | payer MEDICARE, SELFPAY ==
--- NOTE | 2024-11-23 11:50 | CTCTSUMM_ITS ---
[facility] [address], [place] [address] Treatment Summary Date: 11/23/2024 MR#: [id number] Name: QUETA MONTENEGRO : 1965 Dx: C20 Referring Physician: Nazia STARK (A) Diagnosis: [ICD10] C20 Malignant neoplasm of rectum; [ICD10] C78.00 Secondary malignant neoplasm of unspecified lung; [ICD10] C79.51 Secondary malignant neoplasm of bone (B) Aim of Treatment: Maintenance Palliative (C) Concomitant Chemotherapy: yes (D) Radiation Dates: Prior radiation therapy to the pelvis and lung via SBRT additional radiotherapy to T3 area as follows 10/26/2024 through 11/08/2024 Treatment Prescription T3 VMAT 6 MV PHOT 3,000 cGy 10 300 cGy Approved (E) All esteves were treated using customized MLC Blocks (F) Finding at Discharge: Patient had noticeable decrease in pain during the treatment course. MRI of the T-spine will be ordered now to check on response. (G) Discharge Instructions and F/U Appt was given: The patient was also advised to continue follow-up with Dr. Mandujano and primary care physician: Electronically signed by: Keny Britton MD, ROMA 11/23/2024 11:47 AM
[2024-12-05 16:28] LABS: Basophils # (Auto) 0.0 Thou/mm3 (0.0-0.2); Basophils % (Auto) 0 % (0-2.5); Eosinophils # (Auto) 0.1 Thou/mm3 (0.0-0.5); Eosinophils % (Auto) 2 % (0-10); Hematocrit 33.8 % (36.0-46.0); Hemoglobin 10.8 g/dL (12.0-16.0); Immature Granulocytes Auto 0.01 Thou/mm3 (0.00-0.00); Lymphocytes # (Auto) 0.6 Thou/mm3 (1.0-4.8); Lymphocytes % (Auto) 13 % (10-50); Mean Corpuscular HGB Conc 32.0 g/dl (31.0-37.0); Mean Corpuscular Hemoglobin 31.4 pg (25.0-35.0); Mean Corpuscular Volume 98 fL (80-100); Monocytes # (Auto) 0.4 Thou/mm3 (0.0-0.8); Monocytes % (Auto) 7 % (0-12); Neutrophils # (Auto) 3.7 Thou/mm3 (1.8-7.7); Neutrophils % (Auto) 77 % (37-80); Nucleated Red Blood Cell # 0.00 Thou/mm3 (0.00-0.00); Nucleated Red Blood Cell % 0 /100 WBC (0); Platelet Count 184 Thou/mm3 (140-440); RDW Standard Deviation 60.5 fL (36.4-46.3); Red Blood Count 3.44 Miln/mm3 (4.00-5.20); White Blood Count 4.8 Thou/mm3 (3.6-11.0)
[2024-12-05 16:43] LABS: Alanine Aminotransferase 40 U/L (10-49); Albumin, Serum 4.0 gm/dL (3.4-4.8); Albumin/Globulin Ratio 2.0 (1.2-2.2); Alkaline Phosphatase 105 U/L (46-116); Anion Gap 12 (7-16); Aspartate Amino Transferase 36 U/L (0-34); BUN/Creatinine Ratio 20 Ratio (12-20); Bilirubin,Total 0.3 mg/dL (0.3-1.2); Blood Urea Nitrogen 14 mg/dL (9-23); Calcium 9.1 mg/dL (8.3-10.6); Calcium (Corrected) 9.1 mg/dL (8.5-10.1); Carbon Dioxide 22.7 mMol/L (20.0-31.0); Chloride 110 mMol/L (98-107); Creatinine (Component) 0.7 mg/dL (0.6-1.3); Globulin 2.0 gm/dL (2.3-3.5); Glucose 138 mg/dL (74-106); Osmolality,Calculated 291 (275-295); Potassium 3.5 mMol/L (3.4-5.1); Sodium 145 mMol/L (136-145); Total Protein 6.0 gm/dL (5.7-8.2); eGFR > 60 See Note
[2024-12-05 16:45] LABS: Carcinoembryonic Antigen 29.9 ng/mL (0.0-5.0)
[2024-12-19 11:55] LABS: Basophils # (Auto) 0.0 Thou/mm3 (0.0-0.2); Basophils % (Auto) 1 % (0-2.5); Eosinophils # (Auto) 0.1 Thou/mm3 (0.0-0.5); Eosinophils % (Auto) 2 % (0-10); Hematocrit 37.4 % (36.0-46.0); Hemoglobin 11.8 g/dL (12.0-16.0); Immature Granulocytes Auto 0.01 Thou/mm3 (0.00-0.00); Lymphocytes # (Auto) 0.9 Thou/mm3 (1.0-4.8); Lymphocytes % (Auto) 18 % (10-50); Mean Corpuscular HGB Conc 31.6 g/dl (31.0-37.0); Mean Corpuscular Hemoglobin 30.8 pg (25.0-35.0); Mean Corpuscular Volume 98 fL (80-100); Monocytes # (Auto) 0.4 Thou/mm3 (0.0-0.8); Monocytes % (Auto) 9 % (0-12); Neutrophils # (Auto) 3.4 Thou/mm3 (1.8-7.7); Neutrophils % (Auto) 71 % (37-80); Nucleated Red Blood Cell # 0.00 Thou/mm3 (0.00-0.00); Nucleated Red Blood Cell % 0 /100 WBC (0); Platelet Count 161 Thou/mm3 (140-440); RDW Standard Deviation 57.9 fL (36.4-46.3); Red Blood Count 3.83 Miln/mm3 (4.00-5.20); White Blood Count 4.8 Thou/mm3 (3.6-11.0)
[2024-12-19 12:18] LABS: Alanine Aminotransferase 20 U/L (10-49); Albumin, Serum 4.2 gm/dL (3.4-4.8); Albumin/Globulin Ratio 2.1 (1.2-2.2); Alkaline Phosphatase 88 U/L (46-116); Anion Gap 11 (7-16); Aspartate Amino Transferase 28 U/L (0-34); BUN/Creatinine Ratio 15 Ratio (12-20); Bilirubin,Total 0.3 mg/dL (0.3-1.2); Blood Urea Nitrogen 12 mg/dL (9-23); Calcium 9.3 mg/dL (8.3-10.6); Calcium (Corrected) 9.3 mg/dL (8.5-10.1); Carbon Dioxide 25.0 mMol/L (20.0-31.0); Chloride 106 mMol/L (98-107); Creatinine (Component) 0.8 mg/dL (0.6-1.3); Globulin 2.0 gm/dL (2.3-3.5); Glucose 112 mg/dL (74-106); Osmolality,Calculated 283 (275-295); Potassium 4.0 mMol/L (3.4-5.1); Sodium 142 mMol/L (136-145); Total Protein 6.2 gm/dL (5.7-8.2); eGFR > 60 See Note
[2024-12-19 12:19] LABS: Carcinoembryonic Antigen 20.3 ng/mL (0.0-5.0)
[2024-12-20 10:19] LABS: Magnesium 1.7 mg/dL (1.6-2.6)
--- NOTE | 2025-01-03 22:10 | CTCFLWUP_ITS ---
Patient: QUETA MONTENEGRO : 1965 Page 2 of 3 FOLLOW UP NOTE DATE OF SERVICE: 12/21/2024 NAME: QUETA MONTENEGRO ACCOUNT: [id number] : 1965 AGE: 59 INTERVAL HISTORY: 59-year-old woman with tail rectal cancer. Patient had progression with backache scan due to cord compression on T3-T4 for a month and received radiation and MRI on 12/16/2024 showing mild improvement. Patient was started on chemotherapy patient is very concerned and feeling losing control on her lif estyle. Patient is incontinent of stool. Patient understand that her chemotherapy is palliative. Patient started on 5-FU Erbitux at a reduced dose. Will continue therapy ONCOLOGY HISTORY:?[facility] Oncology Hx? DIAGNOSIS: Malignant neoplasm of rectum [ICD10] C20; Secondary malignant neoplasm of unspecified lung [ICD10] C78.00 Malignant neoplasm of rectum [ICD10] C20; Secondary malignant neoplasm of unspecified lung [ICD10] C78.00 DATE OF DIAGNOSIS: 06/08/2017 Adenocarcinoma of the rectum stage IV STAGE/TNM: Stage IV TREATMENT HISTORY: Care?Plan Start?Date Cycle Day Intent FOLFIRI?+?Bevacizumab?10?mg/kg 07/14/2017 1 28 Definitive Rx?Capecitabine?+?Bevacizumab?7.5mg/kg 02/01/2018 1 21 Palliative 5FU?infu?avastin 02/17/2019 1 14 Palliative FOLFIRI?+?Bevacizumab?5mg/kg 02/28/2020 1 14 Palliative Bevacizumab?7.5?mg/kg?-?Met 07/03/2020 1 21 Palliative Bevacizumab?5mg/kg 06/07/2024 1 28 Maintenance mFOLFOX7+?Cetuximab-?Kras,?Nras?wild?type 11/22/2024 1 14 Palliative Cetuximab?250mg 12/20/2024 1 28 Palliative HISTORY OF PRESENT ILLNESS: 08/10/2009: Rectal mass biopsy showed moderately differentiated adenocarcinoma. K-laurence mutation not detected. No loss of expression of MMR proteins. She was treated with neoadjuvant chemoradiation at [facility]. Following the surgery she was found to have T2N2 stage III disease. Postoperatively she was treated with adjuvant chemotherapy with FOLFOX. 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 06/08/2017: CT-guided biopsy of the lung mass showed metastatic carcinoma consistent with colorectal primary. Intact and and or expression. PDL 1 expression negative. Since last visit patient was seen at [facility] on the 10/07/2017. She had a CT scan of the chest abdomen pelvis with contrast done. CT scan showed a right upper lobe 14 x 11 mm and the right lower lobe 15 x 9 mm lesions. Both of these are smaller when compared to the previous scans. Patient is in the clinic today for follow-up. The recommendation Patient: QUETA MONTENEGRO : 1965 Page 2 of 10 from a [facility] physician is to continue current regimen of chemotherapy of full feeding and Avastin. Patient is clinically doing very well. Denies any cough chest pain abdominal pain or leg cramps. 11/09/2017: Patient is in the clinic today for follow-up. Since last visit I have discussed her case with Dr. Rusty Rangel of [facility]. She reviewed the CT scans with her cardiothoracic surgeon at [facility]. According to her patient is not a surgical candidate. 07/14/2017?12/23/2017: Patient was treated with 12 cycles of FOLFIRI plus Avastin. FOLFIRI chemotherapy was stopped due to significant nausea, vomiting as well as diarrhea. 02/01/2018: Patient was started on capecitabine and Avastin chemotherapy. 07/14/2018: CT scan of chest abdomen and pelvis at [facility]?status post low anterior resection tor treatment of a rectal malignancy. Stable pulmonary and pleural metastases. No evidence of metastatic disease in the abdomen or pelvis 02/17/2019: Patient was started on Capecitabine and Avastin again. 03/02/2019: Patient is started on 5-FU and Avastin. Capecitabine discontinued due to side effects 07/05/2019: Patient received last cycle of 5-FU and Avastin. 08/03/2019: CT scan of the chest abdomen and pelvis with contrast at [facility]? 10/04/2019?10/11/2019: Patient received 5400 cGy radiation to the right lung CTV 1 818 2019?9 02/2019: Patient received 5000 cGy radiation to right lung CTV 2. 10/27/2019?11/10/2019: Patient received 4000 cGy to the right lung CTV 3. 12/19/2019: CT scan of the chest with IV contrast? 01/15/2020: Patient had right-sided therapeutic thoracentesis. 1900 cc of dark red fluid was removed. Cytology showed metastatic adenocarcinoma consistent with colorectal primary. 01/26/2020: CT scan of the chest abdomen and pelvis with IV contrast? Patient: QUETA MONTENEGRO : 1965 Page 3 of 10 01/28/2020: PET CT scan? 02/28/2020: Patient received first cycle of dose reduced FOLFIRI with Avastin. 05/23/2020: CT scan of the chest abdomen and pelvis with IV contrast? 05/25/2020: PET CT scan? Patient: QUETA MONTENEGRO : 1965 Page 4 of 10 06/19/2020: Patient received last dose of FOLFIRI. 07/03/2020: Patient is started on capecitabine 1500 mg p.o. twice daily on a 2 weeks on and 1 week off regimen along with Avastin. 09/14/2020: CT scan of the chest abdomen and pelvis with IV contrast? 07/24/2020: CEA 3.4. 09/04/2020: CEA 5.3. 11/23/2020: CEA 2.3. 03/11/2021: CEA 4.2. 04/01/2021: CEA 5.3. 05/13/2021: CEA 8.9. 06/03/2021: CEA 9.9. 08/22/2021: CEA 8.8. 08/09/2021: CT scan of the chest abdomen and pelvis with IV contrast? Patient: QUETA MONTENEGRO : 1965 Page 5 of 10 11/18/2021: CEA 11.0. 01/02/2022: CT scan of the chest abdomen and pelvis with IV contrast? 04/15/2022: CEA 13.3. 10/08/2022: CEA 12.7. 04/06/2023: X-rays of the rib right side unilateral? 04/08/2023: Ultrasound of the right upper back 05/08/2023: PET/CT scan?the PET CT scan was compared to a PET CT scan done on December 09, [address] scan of the chest abdomen and pelvis done on November 03, 2022. Patient: QUETA MONTENEGRO : 1965 Page 6 of 10 06/23/2023: Ms. Montenegro had EBUS guided fine-needle aspiration of the mediastinal lymph node? PET CT scan 08/12 shows extensive but stable disease 11/08/2024 reviewed chart patient have K-laurence mutant wild-type. Will consider starting cetuximab OTHER MEDICAL HISTORY/CONDITIONS: FAMILY HISTORY: ?Clone Family Hx? 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 chlorhexidine gluconate - 0.12 % 15 mL twice daily 2. clonazePAM - 0.5 mg 1 tab Every day before sleep 3. Compazine - 5 mg 1 tab Every 8 hours, PRN nausea 4. Estroven - 155 mg Capsule Daily 5. famotidine - 40 mg 1 tab Daily 6. gabapentin - 800 mg 3 tab Three times a day 7. HYDROcodone-acetaminophen - 10-325 mg 1 tab Four times a day 8. hyoscyamine sulfate - 0.125 mg 1 - 2 tab q4 9. Imodium A-D - 2 mg 1 Capsule As directed 10. Lax Stool Softener With Senna - 8.6-50 mg 1 tab Daily 11. levothyroxine - 25 mcg 1 tab Daily 12. Lidocaine HCl Viscous - 2 6 2 Teaspoon Every 6 Hours 13. Lidocaine Viscous - 2 % 10 mL Daily 14. Lomotil - 2.5-0.025 mg 2 tab four times a day 15. Lonsurf - 20-8.19 mg 3 tab Daily 16. Maalox - 225-200 mg/5 mL 20 cc Every 6 Hours 17. meloxicam - Daily 18. metoprolol tartrate - 100 mg 1 tab Daily 19. nystatin - 100,000 unit/mL 2 Teaspoon Every 6 Hours 20. ondansetron - 8 mg 1 tab every 8 hours as needed for nausea 21. Ritalin - 10 mg 1 tab Twice a Day 22. Trelegy Ellipta - 100-62.5-25 mcg 1 As directed 23. Tylenol Extra Strength - 500 mg 2 Capsule As needed 24. Ventolin HFA - 90 mcg/actuation 1 - 2 Puff(s) q4 25. Vitamin D3 - 5,000 unit 5,000 Units Daily 26. Zoloft - 50 mg 1 tab As directed?[facility] Meds? Medications Last Reconciled by Yi Oneal MD on 12/21/2024 ALLERGIES: nitrofurantoin macrocrystal; nitrofurantoin macrocrystal REVIEW OF SYSTEMS: A complete 14-point review of systems was performed and is negative except as noted in interval history. PHYSICAL EXAMINATION:?[facility] PE? VITAL SIGNS: Temperature?97.4, B/P?148/68, Oxygen?Saturation?98% Weight?140?lbs (Change?since?12/20/24:?-4.2?lbs) PAIN: 0 - No pain The patient appeared well-nourished, alert, and in no apparent distress via video conferencing. LABORATORY DATA: I have personally reviewed and interpreted each of the patient?s relevant lab tests, abnormal findings are below: Date 12/19/24 12/20/24 ??WHITE?BLOOD?COUNT?(Thou/mm3) 4.8 ? ??RED?BLOOD?COUNT?(Miln/mm3) 3.83?L ? ??HEMOGLOBIN?(gm/dl) 11.8?L ? ??HEMATOCRIT?(%) 37.4 ? ??PLATELET?COUNT?(Thou/mm3) 161 ? ??NEUTROPHILS?%,?AUTO?(%) 71 ? ??LYMPH?%,?AUTO?(%) 18 ? ??NEUTROPHILS,?AUTO?(Thou/mm3) 3.4 ? ??GLUCOSE,RANDOM?(mg/dL) 112?H ? ??BLOOD?UREA?NITROGEN?(mg/dL) 12 ? ??CREATININE?(mg/dL) 0.80 ? ??SODIUM?(mmol/L) 142 ? ??POTASSIUM?(mmol/L) 4.0 ? ??CHLORIDE?(mmol/L) 106 ? ??CrCl?(CandG)?(ml/min) 76.89 ? ??AST/SGOT?(Unit/L) 28 ? ??ALT/SGPT?(Unit/L) 20 ? ??ALKALINE?PHOSPHATASE?(Unit/L) 88 ? ??BILIRUBIN,?TOTAL?(mg/dL) 0.3 ? ??PROTEIN?TOTAL?(gm/dl) 6.2 ? ??ALBUMIN,?SERUM?(gm/dl) 4.2 ? ??GLOBULIN?(gm/dl) 2.0?L ? ??ALBUMIN/GLOBULIN?RATIO 2.1 ? ??CALCIUM,?SERUM?(mg/dL) 9.3 ? ??CALCIUM?SERUM?(CORRECTED)?(mg/dL) 9.3 ? ??MAGNESIUM?(mg/dL) ? 1.7 ??CEA?(O*)?(ng/ml) 20.3?H ? ASSESSMENT/PLAN:?Ankit Mandujano Assessment/Plan? Metastatic colon cancer Patient has been treated with chemoradiation. Patient received following treatment so far FOLFOX> IRI> FOLFIRI and Avastin> Avastin> Xeloda and Avastin Patient have wild-type BRAF K-laurence Patient was started on Lonsurf after completing radiation to her shoulder Pain is well-controlled Naterra is still showing progression on cetuximab plus 5-FU Patient is very reluctant to take oxaliplatin. Patient has received only 6 months of oxaliplatin but she would does not want to take anymore as had bad neuropathy at that time Continues cetuximab with 5-FU ORDERS: Order # Description [id number] CBC [id number] Infusion 2 Hours [id number] Infusion 5 Hours [id number] Lab Appointment [id number] Discontinue CIV Pump [id number] CBC + Comprehensive Metabolic Panel + Magnesium [id number] Lab Appointment [id number] Follow Up Appointment [id number] Infusion 5 Hours [id number] Infusion 2 Hours [id number] Discontinue CIV Pump [id number] Infusion 5 Hours [id number] CBC [id number] Lab Appointment [id number] Infusion 2 Hours [id number] Discontinue CIV Pump [id number] CBC + Comprehensive Metabolic Panel + Magnesium [id number] Lab Appointment [id number] Follow Up Appointment [id number] Infusion 5 Hours [id number] Infusion 2 Hours [id number] Discontinue CIV Pump [id number] Infusion 5 Hours [id number] CBC [id number] Lab Appointment [id number] Infusion 2 Hours [id number] Discontinue CIV Pump [id number] CBC + Comprehensive Metabolic Panel + Magnesium [id number] Lab Appointment [id number] Follow Up Appointment [id number] Infusion 5 Hours [id number] Infusion 2 Hours [id number] Discontinue CIV Pump [id number] Infusion 5 Hours [id number] CBC [id number] Lab Appointment [id number] Infusion 2 Hours [id number] Discontinue CIV Pump [id number] CBC + Comprehensive Metabolic Panel + Magnesium [id number] Lab Appointment [id number] Follow Up Appointment [id number] Infusion 5 Hours [id number] Infusion 2 Hours [id number] Discontinue CIV Pump [id number] Infusion 5 Hours [id number] CBC [id number] Lab Appointment [id number] Infusion 2 Hours [id number] Discontinue CIV Pump [id number] CBC + Comprehensive Metabolic Panel + Magnesium [id number] Lab Appointment [id number] Follow Up Appointment [id number] Infusion 5 Hours [id number] Infusion 2 Hours [id number] Discontinue CIV Pump [id number] CBC + Comprehensive Metabolic Panel + CEA [id number] Lab Appointment [id number] Follow Up Appointment [id number] CBC [id number] Lab Appointment [id number] Infusion 2 Hours [id number] CBC + Comprehensive Metabolic Panel + Magnesium [id number] Lab Appointment [id number] Follow Up Appointment RETURN TO CLINIC: I reviewed the diagnosis, prognosis, and recommended treatment/procedure options with the patient (and/or their legal digital sales representative), including the potential benefits, risks, side effects and alternative therapies. We also discussed the option of no treatment and the possibility of clinical trial participation, if applicable. All questions were addressed, and they demonstrated understanding. They provided informed consent to proceed with the proposed plan of care. BILLING AND COMPLIANCE: I reviewed external records from providers outside my specialty as summarized above. I spent a total of 50 minutes on this patient?s care on the day of their visit excluding time spent related to any billed procedures. This time includes time spent with the patient as well as time spent documenting in the medical record, reviewing patients records and tests, obtaining history, placing orders, communicating with other healthcare professionals, counseling the patient, family or caregiver, and/or care coordination for the diagnoses above. Electronically Signed by: Kapil Mandujano MD T: 10:08 PM CC: Wojciech? PCP: Gilbert Doyle Referring: Gilbert Doyle This document was completed utilizing speech recognition software. Grammatical errors, random word insertions, pronoun errors, and incomplete sentences are an occasional consequence of this system due to software limitations, ambient noise, and hardware issues. Any formal questions or concerns about the content, text or information contained within the body of this dictation should be directly addressed to the provider for clarification.
== END 2024-12-23 23:59 | disposition home or self-care (01) ==
LOC: SCTC 10:48
PROVIDERS: PCP Internal Medicine; Referring Provider Internal Medicine; Visit Provider Internal Medicine Hematology & Oncology
DX: Z51.11 Encounter for antineoplastic chemotherapy (principal); C20 Malignant neoplasm of rectum; C79.51 Secondary malignant neoplasm of bone; C78.01 Secondary malignant neoplasm of right lung; G95.29 Other cord compression; R15.9 Full incontinence of feces; G62.0 Drug-induced polyneuropathy; T45.1X5D Adverse effect of antineoplastic and immunosuppressive drugs, subsequent encounter
CPT/HCPCS: 36591; 80053; 82232; 82378; 82607; 82728; 82746; 83540; 83550; 83615; 83735; 84550; 85025; 96367; 96368; 96411; 96413; 96416; 99212; A4216; J0640; J1100; J1434; J1642; J2405; J3475; J3490; J7040; J7050; J9055; J9190; A9270; G0463

== ENCOUNTER 2024-12-26 13:23 | Outpatient (AMB) | payer MEDICARE, SELFPAY ==
[2024-12-26 13:44] VITALS: BP 139/96; PULSE 106; RESP 18; TEMP 35.7; O2SAT 97; BMI 24.7
--- NOTE | 2024-12-26 13:44 | PD.GSCLVISIT ---
Vital Signs - [facility] 12/26/24 13:44 Height 1.63 m Height Method Measured Weight 65.431 kg Weight Measurement Method Standing Scale BMI 24.7 BP 139/96 H Blood Pressure Source Automatic Cuff Blood Pressure Location Left Upper Arm Position Sitting Respiration 18 Pulse 106 H Pulse Source Monitor Temp 96.2 F L Temp Source Temporal Artery Scan Pulse Oximetry (%) 97 Oxygen Delivery Method Room Air Med/Allergies Allergies & Medications Allergies vancomycin Allergy (Verified 12/26/24 13:45) Diarrhea Medication Reconciliation omeprazole 40 mg capsule,delayed release 40 mg PO QDAY 07/07/17 [History Confirmed 12/26/24] meloxicam 15 mg tablet 15 mg PO QDAY 01/15/20 [History Confirmed 12/26/24] sertraline 50 mg tablet (Zoloft) 50 mg PO QDAY 01/15/20 [History Confirmed 12/26/24] soy isoflavone-black cohosh root-magnolia bark 155 mg capsule (Estroven) 1 cap PO DAILY 01/15/20 [History Confirmed 12/26/24] amlodipine 5 mg tablet 5 mg PO HS 01/12/23 [History Confirmed 12/26/24] metoprolol succinate 100 mg tablet,extended release 24 hr 100 mg PO HS 01/12/23 [History Confirmed 12/26/24] gabapentin 100 mg capsule 200 mg PO TID 08/25/24 [History Confirmed 12/26/24] hydrocodone 10 mg-acetaminophen 325 mg tablet 1 tab PO Q8H PRN pain (scale score 7-10) 08/25/24 [History Confirmed 12/26/24] clonazepam 0.5 mg tablet 0.5 mg PO HS 08/29/24 [History Confirmed 12/26/24] MA Intake Visit Data Collection New Patient or Established: Established Patient (seen at [facility] within 3 years) Seen by Clinical Staff ONLY (RN/MA): No Reason for Visit:: REFERRAL RECTAL PAIN Pain Present Currently: Yes Pain Location: Rectum Pain Scale Used: HumphreysJuliaAlas/Numerical Admissions Advisor Required: No PCP or OBGYN visit in last 3 months: Yes Hx Now: No Do You Feel Safe at Home: Yes Authorities Contacted: N/A Smoking Status Smoking Status: Smoker, status unknown (MARIJUANA ) Immunization / Flu Flu Vaccine in the Last 12 Months: Yes Flu Vaccine Exclusion Criteria: Already Received Past Medical History Past Medical History NEUROLOGIC: Positive Neurological Disorders and Amyotrophic Lateral Sclerosis (ALS/Priscila Gehrig's); Negative Seizures CARDIAC: Positive Cardiac Disorders (HTn) and Hypertension; Negative Congestive Heart Failure RESPIRATORY: Positive Asthma (at times.) and Pneumonia; Negative Chronic Obstructive Pulmonary Disease (COPD), Emphysema or Tuberculosis GASTROINTESTINAL: Positive Gastrointestinal Disorders (Colon ca), Hepatitis, Gastrointestinal Bleed, Diverticulitis, Colorectal Cancer and Gastroesophageal Reflux Disease GENITOURINARY: Negative Genitourinary Disorders or Renal Disease REPRODUCTIVE: Positive Previous Pregnancies MUSCULOSKELETAL: Positive Fractures ENDOCRINE: Negative Endocrine Disorders, Diabetes Mellitus Type 1 or Diabetes Mellitus Type 2 HEMATOLOGIC: Negative Blood Disorders or Sickle Cell Disease PSYCHO/SOCIAL: Positive Depression and Anxiety OTHER HISTORY: Positive Shingles, Chemotherapy, Radiation Therapy, Chicken Pox, Measles, Mumps, Cancer and Colorectal Cancer; Negative Falls, Blood Transfusions or Anesthesia Reactions Family History FAMILY HISTORY: Positive Family Cancer; Negative Family Psychiatric Problems, Family Respiratory Disorders, Family Cardiac Disorders, Family Gastrointestinal Problems, Family Surgery or Family Anesthesia Reaction Surgical History SURGICAL: Positive Abdominal Surgery, Open Reduction Internal Fixation (Left foot-plate/screws) and Tubal Ligation; Negative Joint Replacement or Mastectomy Social History SMOKING STATUS: Smoking status: Smoker, status unknown (MARIJUANA ) SECOND HAND EXPOSURE: second hand exposure: No ALCOHOL: Alcohol Intake: Current HOUSING: Housing: House LIVES WITH: Lives With: Alone HPI HPI Narrative 59F with stage IV rectal adenocarcinoma first diagnosed on 2009, currently on 5-FU and cituximab for metastatic lesions of the chest and thoracic spine referred for perianal pain. Pt states she has noticed the pain since spring of this year, which is severe and worse when she is having a BM. When asked she does state that the pain feels like passing shards of glass. She follows with Dr. Alvarez and he evaluated her in July, confirmed that she has an anal fissure and prescribed compound cream. Patient has been using it on and off but feels like it provides minimal relief and she has not tried sitz baths. Her daughter made a mixture of diaper rash cream, monistat and a steroid cream that she uses occasionally and it does provide some relief Patient had what sounds like a low anterior resection for her rectal cancer at [place] and reports being advised that her stools would never really be normal . She drinks about 32 ounces of water daily and has tried fiber but does not currently take it. Patient states that most of her time her bowel movements are soft but also states sometimes they are very loose and she even will have incontinence to loose stools, but she also does sometimes have hard stools that require straining. Her last colonoscopy was in 2022 however she is following up with Dr. Alvarez for another colonoscopy this month ROS Review of Systems Systems Reviewed: All systems reviewed, normal except as documented Objective/Exam General General Appearance: alert, cooperative and well groomed Resp Respiratory exam: Absent respiratory distress Rectal Rectal exam: Present other (circumferential perianal erythema. At the midline anterior anal verge there is a fissure and what looks like an external fistula opening draining yellow material. Pt had difficulty tolerating DARRIN so I did not perform anoscopy) Assessment & Plan Diagnosis / Problem List (1) Anal fissure and fistula: Status: Acute Assessment & Plan: 59F with stage IV rectal CA, s/p remote LAR at [place], currently with metastases to chest and thoracic spine on 5-FU and cituximab, with a symptomatic anal fissure and associated fistula. I recommended pt again try fiber supplementation with the goal of bulking up her stools, as her loose stools are likely contributing to her symptoms. I also provided a handout which detailed how much fiber she should intake as well as how to take sitz baths. Pt is agreeable to this plan and will follow up in 4-6 weeks after her scheduled appt with Dr Mandujano Office Procedures GNS Level of Care Nursing/Assessment Patient Status: Established Patient Nursing Assessment/Reassesment: Medication Reconciliation, Update PMH in EMR and Vital Signs Coordination of Care: Complex Care and Chronic Disease 1-5, Education Complex Pt/Fam, Consent,records obtained, informed consent, Results/Orders obtained and Staff clarify orders Established Patient Charge Established Patient Point Assignment: 95 Established Patient Point Charge: EP Level 3 (80-115) Patient Portal Questionaires Social History Living Situation History Housing: House Tobacco History Smoking Status: Smoker, status unknown (MARIJUANA ) Second Hand Smoke Exposure: No Alcohol History Alcohol Intake: Current Alcohol Intake Frequency Other:: once a week Domestic Abuse History Do You Feel Safe at Home: Yes Review of Systems Report any current symptoms Only answer those that you have currently: Past Medical History Past Medical History Have you ever been diagnosed with any of the following: Neurological Problems Seizures: No Amyotrophic Lateral Sclerosis (ALS/Priscila Gehrig's): Yes Cardiology Problems Congestive Heart Failure: No Hypertension: Yes Respiratory Problems Chronic Obstructive Pulmonary Disease (COPD): No Asthma: Yes (at times.) Emphysema: No Pneumonia: Yes Tuberculosis: No Stomache/Intestinal Problems Hepatitis: Yes Gastrointestinal Bleed: Yes Diverticulitis: Yes Colorectal Cancer: Yes Gastroesophageal Reflux Disease: Yes Genital/Urinary Problems Renal Disease: No Reproductive Problems Previous Pregnancies: Yes Musculoskeletal Problems Fractures: Yes Endocrine Problems Diabetes Mellitus Type 1: No Diabetes Mellitus Type 2: No Blood Problems Sickle Cell Disease: No Psychologic Problems Depression: Yes Anxiety: Yes Other Problems Shingles: Yes Falls: No Blood Transfusions: No Anesthesia Reactions: No Chemotherapy: Yes Radiation Therapy: Yes Chicken Pox: Yes Measles: Yes Mumps: Yes Cancer: Yes
== END 2024-12-26 14:59 | disposition home or self-care (01) ==
LOC: HODSRG 13:23
PROVIDERS: PCP Internal Medicine; Referring Provider Internal Medicine; Supervising Provider Surgery; Visit Provider Surgery
DX: K60.2 Anal fissure, unspecified (principal); K60.30 Anal fistula, unspecified; C20 Malignant neoplasm of rectum; C79.51 Secondary malignant neoplasm of bone; I10 Essential (primary) hypertension
CPT/HCPCS: 99213; G0463

== ENCOUNTER 2025-01-11 09:16 | Outpatient (RCR) | payer MEDICARE, SELFPAY ==
[2025-01-06 11:19] LABS: Basophils # (Auto) 0.0 Thou/mm3 (0.0-0.2); Basophils % (Auto) 1 % (0-2.5); Eosinophils # (Auto) 0.1 Thou/mm3 (0.0-0.5); Eosinophils % (Auto) 3 % (0-10); Hematocrit 37.9 % (36.0-46.0); Hemoglobin 12.4 g/dL (12.0-16.0); Immature Granulocytes Auto 0.02 Thou/mm3 (0.00-0.00); Lymphocytes # (Auto) 0.7 Thou/mm3 (1.0-4.8); Lymphocytes % (Auto) 20 % (10-50); Mean Corpuscular HGB Conc 32.7 g/dl (31.0-37.0); Mean Corpuscular Hemoglobin 31.3 pg (25.0-35.0); Mean Corpuscular Volume 96 fL (80-100); Monocytes # (Auto) 0.4 Thou/mm3 (0.0-0.8); Monocytes % (Auto) 10 % (0-12); Neutrophils # (Auto) 2.2 Thou/mm3 (1.8-7.7); Neutrophils % (Auto) 65 % (37-80); Nucleated Red Blood Cell # 0.00 Thou/mm3 (0.00-0.00); Nucleated Red Blood Cell % 0 /100 WBC (0); Platelet Count 194 Thou/mm3 (140-440); RDW Standard Deviation 55.6 fL (36.4-46.3); Red Blood Count 3.96 Miln/mm3 (4.00-5.20); White Blood Count 3.4 Thou/mm3 (3.6-11.0)
[2025-01-06 11:34] LABS: Alanine Aminotransferase 30 U/L (10-49); Albumin, Serum 4.3 gm/dL (3.4-4.8); Albumin/Globulin Ratio 2.5 (1.2-2.2); Alkaline Phosphatase 101 U/L (46-116); Anion Gap 9 (7-16); Aspartate Amino Transferase 31 U/L (0-34); BUN/Creatinine Ratio 13 Ratio (12-20); Bilirubin,Total 0.3 mg/dL (0.3-1.2); Blood Urea Nitrogen 10 mg/dL (9-23); Calcium 9.5 mg/dL (8.3-10.6); Calcium (Corrected) 9.5 mg/dL (8.5-10.1); Carbon Dioxide 28.8 mMol/L (20.0-31.0); Carcinoembryonic Antigen 16.5 ng/mL (0.0-5.0); Chloride 105 mMol/L (98-107); Creatinine (Component) 0.8 mg/dL (0.6-1.3); Globulin 1.7 gm/dL (2.3-3.5); Glucose 105 mg/dL (74-106); Osmolality,Calculated 283 (275-295); Potassium 4.4 mMol/L (3.4-5.1); Sodium 143 mMol/L (136-145); Total Protein 6.0 gm/dL (5.7-8.2); eGFR > 60 See Note
== END 2025-01-22 23:59 | disposition home or self-care (01) ==
LOC: SCTC 09:16
PROVIDERS: Internal Medicine Hematology & Oncology; PCP Internal Medicine; Referring Provider Internal Medicine; Visit Provider Radiology Therapeutic Radiology
DX: Z51.11 Encounter for antineoplastic chemotherapy (principal); C20 Malignant neoplasm of rectum; C78.01 Secondary malignant neoplasm of right lung; Z92.3 Personal history of irradiation; R15.9 Full incontinence of feces
CPT/HCPCS: 36591; 80053; 82378; 85025; 96367; 96368; 96413; 96416; A4216; J0640; J1100; J1434; J1642; J2405; J3475; J3490; J7040; J7050; J9055; J9190; A9270

== ENCOUNTER 2025-01-30 13:24 | Outpatient (AMB) | payer MEDICARE, SELFPAY ==
--- NOTE | 2025-01-30 13:58 | PD.GSCLVISIT ---
Vital Signs - [facility] 01/30/25 13:59 Height 1.63 m Height Method Stated Weight 68.124 kg Weight Measurement Method Standing Scale BMI 25.6 BP 129/87 H Blood Pressure Source Automatic Cuff Blood Pressure Location Right Upper Arm Position Sitting Respiration 18 Pulse 93 Pulse Source Monitor Temp 97.2 F Temp Source Temporal Artery Scan Pulse Oximetry (%) 96 Oxygen Delivery Method Room Air Med/Allergies Allergies & Medications Allergies vancomycin Allergy (Verified 01/30/25 14:00) Diarrhea Medication Reconciliation omeprazole 40 mg capsule,delayed release 40 mg PO QDAY 07/07/17 [History Confirmed 01/30/25] meloxicam 15 mg tablet 15 mg PO QDAY 01/15/20 [History Confirmed 01/30/25] sertraline 50 mg tablet (Zoloft) 50 mg PO QDAY 01/15/20 [History Confirmed 01/30/25] soy isoflavone-black cohosh root-magnolia bark 155 mg capsule (Estroven) 1 cap PO DAILY 01/15/20 [History Confirmed 01/30/25] amlodipine 5 mg tablet 5 mg PO HS 01/12/23 [History Confirmed 01/30/25] metoprolol succinate 100 mg tablet,extended release 24 hr 100 mg PO HS 01/12/23 [History Confirmed 01/30/25] gabapentin 100 mg capsule 200 mg PO TID 08/25/24 [History Confirmed 01/30/25] hydrocodone 10 mg-acetaminophen 325 mg tablet 1 tab PO Q8H PRN pain (scale score 7-10) 08/25/24 [History Confirmed 01/30/25] clonazepam 0.5 mg tablet 0.5 mg PO HS 08/29/24 [History Confirmed 01/30/25] MA Intake Visit Data Collection New Patient or Established: Established Patient (seen at [facility] within 3 years) Reason for Visit:: 1 MONTH FOLLOW UP Pain Present Currently: No 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 PCP or OBGYN visit in last 3 months: Yes Hx Now: No Do You Feel Safe at Home: Yes Authorities Contacted: N/A Smoking Status Smoking Status: Smoker, status unknown (MARIJUANA ) Immunization / Flu Flu Vaccine in the Last 12 Months: No Flu Vaccine Exclusion Criteria: No Exclusion Criteria Past Medical History Past Medical History NEUROLOGIC: Positive Neurological Disorders and Amyotrophic Lateral Sclerosis (ALS/Priscila Gehrig's); Negative Seizures CARDIAC: Positive Cardiac Disorders (HTn) and Hypertension; Negative Congestive Heart Failure RESPIRATORY: Positive Asthma (at times.) and Pneumonia; Negative Chronic Obstructive Pulmonary Disease (COPD), Emphysema or Tuberculosis GASTROINTESTINAL: Positive Gastrointestinal Disorders (Colon ca), Hepatitis, Gastrointestinal Bleed, Diverticulitis, Colorectal Cancer and Gastroesophageal Reflux Disease GENITOURINARY: Negative Genitourinary Disorders or Renal Disease REPRODUCTIVE: Positive Previous Pregnancies MUSCULOSKELETAL: Positive Fractures ENDOCRINE: Negative Endocrine Disorders, Diabetes Mellitus Type 1 or Diabetes Mellitus Type 2 HEMATOLOGIC: Negative Blood Disorders or Sickle Cell Disease PSYCHO/SOCIAL: Positive Depression and Anxiety OTHER HISTORY: Positive Shingles, Chemotherapy, Radiation Therapy, Chicken Pox, Measles, Mumps, Cancer and Colorectal Cancer; Negative Falls, Blood Transfusions or Anesthesia Reactions Family History FAMILY HISTORY: Positive Family Cancer; Negative Family Psychiatric Problems, Family Respiratory Disorders, Family Cardiac Disorders, Family Gastrointestinal Problems, Family Surgery or Family Anesthesia Reaction Surgical History SURGICAL: Positive Abdominal Surgery, Open Reduction Internal Fixation (Left foot-plate/screws) and Tubal Ligation; Negative Joint Replacement or Mastectomy Social History SMOKING STATUS: Smoking status: Smoker, status unknown (MARIJUANA ) SECOND HAND EXPOSURE: second hand exposure: No ALCOHOL: Alcohol Intake: Current HOUSING: Housing: House LIVES WITH: Lives With: Alone Travel Risk Travel Hx Recent Travel: No HPI HPI Narrative 59F with stage IV rectal CA, s/p remote LAR at [place], currently with metastases to chest and thoracic spine s/p radiation and currently on palliative chemo, here for follow up of anal fissure/fistula. Pt reports her symptoms are overall unchanged, she continues to have perianal pain which significantly limits her activities. Pain is worse after having a BM but then she does have moments without pain. Her BMs are still somewhat loose and she has not been regularly taking fiber as she has been unsure what the optimal dose would be, and she has been managing her condition for so long that she takes four different anti-diarrheals as needed Pt saw Dr Alvarez recently for her planned colonoscopy but she deferred it due to her perianal pain, preferring not to have to undergo prep right now. She still notes purulent drainage from the very small fistula opening that is just anterior to the anal fissure ROS Review of Systems Systems Reviewed: All systems reviewed, normal except as documented Objective/Exam General General Appearance: alert, cooperative and well groomed Resp Respiratory exam: Absent respiratory distress Rectal Rectal exam: Present other (anal fissure at the anterior midline which is mildly tender, and just anterior to this there is a punctate external fistula opening. Perianal erythema which is mildly tender) Assessment & Plan Diagnosis / Problem List (1) Anal fissure and fistula: Status: Acute Assessment & Plan: 59F with stage IV rectal CA, s/p remote LAR at [place], currently with metastases to chest and thoracic spine s/p radiation and currently on palliative chemo, here for follow up of anal fissure/fistula. Her symptoms of severe perianal pain have not improved with conservative measures including compound cream and sitz baths, and she is eager to undergo any procedure that might help her symptoms. I explained that botox injection to the anal sphincter could make her prone to fecal incontinence although I would expect this would be temporary. As her anal fistula is so close to her anus I also explained that I can perform fistulotomy, with the understanding that she may experience fistula persistence/recurrence. All questions were answered and pt would like to proceed with surgery Plan: EUA with botox injection to anal sphincter and fistulotomy Office Procedures GNS Level of Care Nursing/Assessment Patient Status: Established Patient Nursing Assessment/Reassesment: Medication Reconciliation, Update PMH in EMR and Vital Signs Coordination of Care: Complex Care and Chronic Disease 1-5, Education Complex Pt/Fam, Consent,records obtained, informed consent, Results/Orders obtained and Staff clarify orders Established Patient Charge Established Patient Point Assignment: 95 Established Patient Point Charge: EP Level 3 (80-115) Patient Portal Questionaires Social History Living Situation History Housing: House Tobacco History Smoking Status: Smoker, status unknown (MARIJUANA ) Second Hand Smoke Exposure: No Alcohol History Alcohol Intake: Current Alcohol Intake Frequency Other:: once a week Domestic Abuse History Do You Feel Safe at Home: Yes Review of Systems Report any current symptoms Only answer those that you have currently: Past Medical History Past Medical History Have you ever been diagnosed with any of the following: Neurological Problems Seizures: No Amyotrophic Lateral Sclerosis (ALS/Priscila Gehrig's): Yes Cardiology Problems Congestive Heart Failure: No Hypertension: Yes Respiratory Problems Chronic Obstructive Pulmonary Disease (COPD): No Asthma: Yes (at times.) Emphysema: No Pneumonia: Yes Tuberculosis: No Stomache/Intestinal Problems Hepatitis: Yes Gastrointestinal Bleed: Yes Diverticulitis: Yes Colorectal Cancer: Yes Gastroesophageal Reflux Disease: Yes Genital/Urinary Problems Renal Disease: No Reproductive Problems Previous Pregnancies: Yes Musculoskeletal Problems Fractures: Yes Endocrine Problems Diabetes Mellitus Type 1: No Diabetes Mellitus Type 2: No Blood Problems Sickle Cell Disease: No Psychologic Problems Depression: Yes Anxiety: Yes Other Problems Shingles: Yes Falls: No Blood Transfusions: No Anesthesia Reactions: No Chemotherapy: Yes Radiation Therapy: Yes Chicken Pox: Yes Measles: Yes Mumps: Yes Cancer: Yes
[2025-01-30 13:59] VITALS: BP 129/87; PULSE 93; RESP 18; TEMP 36.2; O2SAT 96; BMI 25.6
== END 2025-01-30 14:46 | disposition home or self-care (01) ==
LOC: HODSRG 13:24
PROVIDERS: PCP Internal Medicine; Referring Provider Internal Medicine; Supervising Provider Surgery; Visit Provider Surgery
DX: K60.2 Anal fissure, unspecified (principal); K60.30 Anal fistula, unspecified; C20 Malignant neoplasm of rectum; C79.89 Secondary malignant neoplasm of other specified sites; C79.51 Secondary malignant neoplasm of bone; I10 Essential (primary) hypertension
CPT/HCPCS: 99213; G0463